=== PATIENT | female | born 1970 | race Caucasian/White ===

== ENCOUNTER → 2018-07-31 | Outpatient (CLI) | payer OTHER ==
--- NOTE | 2018-07-31 14:58 | CT ---
EXAMINATION TYPE: CT abdomen pelvis w con DATE OF EXAM: 07/31/2018 HISTORY: bilateral pelvic pain CT DLP: 675.3mGycm Automated Exposure Control for Dose Reduction was Utilized. CONTRAST: CT scan of the abdomen and pelvis is performed with IV Contrast, patient injected with 100 mL of Isov ue 300. COMPARISON: None. FINDINGS: LUNG BASES: Very minimal right basilar subsegmental atelectasis is seen. LIVER/GB: None radiopaque probable gallstone measuring 1.6 cm is seen although this could represent a polyp and could be further evaluated with ultrasound that could evaluate for vascular flow or shadow ing. The liver demonstrates very mild degree hepatic steatosis. PANCREAS: No significant abnormality is seen. SPLEEN: No significant abnormality is seen. ADRENALS: No significant abnormality is seen. KIDNEYS: Kidneys enhance and excrete symmetrically. No hydronephrosis. BOWEL: Few scattered sigmoid diverticula are noted without pericolonic fat stranding. No dilated larg e or small bowel is seen. UTERUS/ADNEXA: There is a fluid attenuated 1.2 cm left ovarian follicle in this patient with pelvic p ain. LYMPH NODES: No greater than 1cm abdominal or pelvic lymph nodes are appreciated. OSSEOUS STRUCTURES: Mild multilevel degenerative changes of the spine. IMPRESSION: 1. Low-density noncalcified solitary gallstone versus gallbladder polyp is present. Targeted right up per quadrant ultrasound could assess for shadowing or vascular flow to differentiate the 2 etiologies . 2. Few scattered sigmoid diverticula without evidence of acute diverticulitis. 3. Very mild degree hepatic steatosis. 4. Follicular changes seen of the left ovary. In this patient with pelvic pain pelvic ultrasound coul d assess for hemorrhagic follicles/cysts.
== END ==
LOC: RADCTMAIN 12:28
PROVIDERS: ATTEND Family Medicine
DX: K57.30 Diverticulosis of large intestine without perforation or abscess without bleeding (principal); K76.0 Fatty (change of) liver, not elsewhere classified
CPT/HCPCS: 74177; Q9967

== ENCOUNTER 2019-02-17 10:31 | Emergency (ER) | payer OTHER ==
[2019-02-17 10:40] VITALS: TEMP 97.6
[2019-02-17] MEDS ORDERED: IPRATROPIUM-ALBUTEROL 3 ML NEB INHALATION STA (11:26)
--- NOTE | 2019-02-17 11:28 | ED ---
General Adult HPI - General Chief complaint: Upper Respiratory Infection Stated complaint: congestion Time Seen by Provider: 02/17/19 10:41 Source: patient, RN notes reviewed Mode of arrival: ambulatory Limitations: no limitations - History of Present Illness Initial comments: Patient is a pleasant 48-year-old female presenting to the emergency Department with chest congestion. Patient did see her doctor just the other day and was diagnosed with sinus infection. Patient states today she is now having chest congestion. Patient sometimes feels warm and cold however that is chronic. Patient does have cough with out much production. Patient feels like there is congestion in her chest however has difficulty bringing it up. Patient questions if she could have bronchitis or pneumonia. Patient states she does feel a bit short of breath. No chest pain. No leg pain or leg swelling. - Related Data Previous Rx's Medication Instructions Recorded Albuterol Inhaler [Ventolin Hfa 2 puff INHALATION Q4HR PRN #1 02/17/19 Inhaler] inhaler predniSONE 20 mg PO BID #10 tab 02/17/19 Allergies Allergy/AdvReac Type Severity Reaction Status Date / Time No Known Allergies Allergy Verified 02/17/19 10:40 Review of Systems ROS Statement: Those systems with pertinent positive or pertinent negative responses have been documented in the HPI. ROS Other: All systems not noted in ROS Statement are negative. Constitutional: Reports: as per HPI Eyes: Denies: eye pain ENT: Reports: congestion. Denies: ear pain Respiratory: Reports: cough Cardiovascular: Denies: chest pain Endocrine: Denies: fatigue Gastrointestinal: Denies: abdominal pain Genitourinary: Denies: dysuria Musculoskeletal: Denies: back pain Skin: Denies: rash Neurological: Denies: weakness Past Medical History Past Medical History: No Reported History History of Any Multi-Drug Resistant Organisms: None Reported Past Surgical History: No Surgical Hx Reported Past Psychological History: No Psychological Hx Reported Smoking Status: Current every day smoker Past Alcohol Use History: Rare Past Drug Use History: None Reported General Exam Limitations: no limitations General appearance: alert, in no apparent distress Head exam: Present: normocephalic Eye exam: Present: normal appearance, PERRL ENT exam: Present: normal oropharynx Neck exam: Present: normal inspection Respiratory exam: Present: rhonchi (Especially with cough) Cardiovascular Exam: Present: regular rate, normal rhythm GI/Abdominal exam: Present: soft. Absent: tenderness Extremities exam: Present: normal inspection. Absent: pedal edema, calf tenderness Back exam: Present: normal inspection Neurological exam: Present: alert Psychiatric exam: Present: normal affect, normal mood Skin exam: Present: normal color Course Vital Signs 02/17/19 02/17/19 02/17/19 10:37 11:57 12:07 Temperature 97.6 F Pulse Rate 90 92 95 Respiratory 20 Rate Blood Pressure 124/66 O2 Sat by Pulse 95 Oximetry - Reevaluation(s) Reevaluation #1: 02/17/19 11:31 PERC negative Medical Decision Making - Medical Decision Making Patient reevaluated and feels somewhat better following nebulizer. Patient states she was put on antibiotics for sinuses for her doctor. Patient is comfortable with discharge home. Patient updated on results and need for follow-up. Patient states she does have a history of smoker and is advised against smoking. - Radiology Data Radiology results: image reviewed (Chest x-ray shows COPD changes) Disposition Clinical Impression: Bronchitis Disposition: HOME SELF-CARE Condition: Stable Instructions (If sedation given, give patient instructions): Acute Bronchitis (ED), COPD (Chronic Obstructive Pulmonary Disease) (ED) Additional Instructions: Please follow-up with primary care physician in the next couple days for recheck. Return for difficulty in breathing, fevers, worsening symptoms or other concerns. Prescriptions: predniSONE 20 mg PO BID #10 tab Albuterol Inhaler [Ventolin Hfa Inhaler] 2 puff INHALATION Q4HR PRN #1 inhaler PRN Reason: Dyspnea Is patient prescribed a controlled substance at d/c from ED?: No Referrals: Chuyita Simmons MD [Primary Care Provider] - 1-2 days Time of Disposition: 13:08
--- NOTE | 2019-02-17 11:57 | XR ---
EXAMINATION TYPE: XR chest 2V DATE OF EXAM: 02/17/2019 HISTORY: cough. REFERENCE: NONE. FINDINGS: Lung volumes are enlarged. The lungs are clear. Pleural spaces are clear. The heart is not enlarged. There is minor hypertrophic spondylosis within the spine. IMPRESSION: PLEASE CORRELATE FOR COPD
[2019-02-17 13:21] VITALS: BP 120/78; PULSE 89; RESP 16
== END 2019-02-17 13:22 | disposition home or self-care (01) ==
LOC: EC 10:31
DX: J40 Bronchitis, not specified as acute or chronic (principal); F17.200 Nicotine dependence, unspecified, uncomplicated
CPT/HCPCS: 71046; 94640; 99283

== ENCOUNTER 2019-02-23 13:01 | Emergency (ER) | payer OTHER ==
[2019-02-23 13:11] VITALS: TEMP 98
[2019-02-23] MEDS ORDERED: methylPREDNISolone SOD SUCCI 125 MG/2 ML VIAL IM ONE (13:46)
[2019-02-23] MEDS ORDERED: IPRATROPIUM-ALBUTEROL 3 ML NEB INHALATION STA (13:46)
--- NOTE | 2019-02-23 13:51 | ED ---
SOB HPI - General Chief Complaint: Shortness of Breath Stated Complaint: SOB Time Seen by Provider: 02/23/19 13:18 Source: patient, RN notes reviewed, old records reviewed Mode of arrival: ambulatory Limitations: no limitations - History of Present Illness Initial Comments: Patient's a 48-year-old female with a history of COPD, and a smoker. She presen ts today complaining of shortness of breath and cough congestion. She was seen in the emergency department last week and placed on steroids and inhaler. She's been using those. Her last dose of steroids was yesterday. She states that today she woke up feeling some congestion and wheezing and felt that she needed to come back to the emergency department to be seen. She states she has an appointment on Monday with her primary care physician. Patient states that her cough has been nonproductive. She's been using her inhaler prior to coming here she was quite short of breath at home. She denies any specific chest pain, but states that sometimes taking a deep breath it does feel tight. - Related Data Previous Rx's Medication Instructions Recorded Azithromycin [Zithromax Z-pack] 250 mg PO DIRECTED #6 tab 02/23/19 predniSONE 20 mg PO BID #10 tab 02/23/19 Allergies Allergy/AdvReac Type Severity Reaction Status Date / Time No Known Allergies Allergy Verified 02/23/19 13:11 Review of Systems ROS Statement: Those systems with pertinent positive or pertinent negative responses have been documented in the HPI. ROS Other: All systems not noted in ROS Statement are negative. Past Medical History Past Medical History: COPD History of Any Multi-Drug Resistant Organisms: None Reported Past Surgical History: No Surgical Hx Reported Past Psychological History: Depression Smoking Status: Former smoker Past Alcohol Use History: Rare Past Drug Use History: None Reported General Exam - General Exam Comments Initial Comments: 48-year-old female. Alert and oriented 3. Limitations: no limitations General appearance: alert, in no apparent distress Head exam: Present: atraumatic, normocephalic, normal inspection Eye exam: Present: normal appearance, PERRL, EOMI. Absent: scleral icterus, conjunctival injection, periorbital swelling ENT exam: Present: normal exam, mucous membranes moist Neck exam: Present: normal inspection. Absent: tenderness, meningismus, lymphadenopathy Respiratory exam: Present: wheezes (minimal wheezing). Absent: normal lung sounds bilaterally, respiratory distress, rales, rhonchi, stridor Cardiovascular Exam: Present: regular rate, normal rhythm, normal heart sounds. Absent: systolic murmur, diastolic murmur, rubs, gallop, clicks GI/Abdominal exam: Present: soft, normal bowel sounds. Absent: distended, tenderness, guarding, rebound, rigid Back exam: Present: normal inspection Neurological exam: Present: alert, oriented X3, CN II-XII intact Course Vital Signs 02/23/19 02/23/19 02/23/19 13:09 13:48 13:59 Temperature 98.0 F Pulse Rate 84 82 88 Respiratory 18 Rate Blood Pressure 132/75 O2 Sat by Pulse 96 Oximetry 02/23/19 14:15 Temperature 98.0 F Pulse Rate 89 Respiratory 22 Rate Blood Pressure 122/56 O2 Sat by Pulse 99 Oximetry Medical Decision Making - Medical Decision Making Patient is a 48-year-old female presents today for worsening cough and some shortness of breath. She is treated one week ago for bronchitis. She was on Augmentin and finished admitted last week for sinusitis. She states today after she finished her steroid yesterday she felt that she needed more steroids that she had a cough and some difficulty breathing today. On exam she has some minimal wheezing. She does complain of some tightness of the right lung. Chest x-ray today shows new mild right middle lobe pneumonia. Patient was given IM Solu-Medrol IM Rocephin. Discussed covering for atypical bacteria with azithromycin. She has an appointment on Monday with her primary care doctor. Discussed the Patient and have any worsening difficulty breathing she cannot return for reevaluation. I discussed that he can have the Patient follow-up with her primary care on Monday and at that time. Still not improving while she may have to be related to the hospital. Patient is agreeable to this treatment plan will comply. - Radiology Data Radiology results: report reviewed Chest x-ray shows a new mild right middle lobe pneumonia compared to last exam. Disposition Clinical Impression: CAP (community acquired pneumonia) Disposition: HOME SELF-CARE Condition: Good Instructions (If sedation given, give patient instructions): Community Acquired Pneumonia (ED) Additional Instructions: Patient has follow-up with your primary care doctor. Return to the emergency department if any alarming symptoms occur. Take inhaler and use of steroids as prescribed. Prescriptions: predniSONE 20 mg PO BID #10 tab Azithromycin [Zithromax Z-pack] 250 mg PO DIRECTED #6 tab Is patient prescribed a controlled substance at d/c from ED?: No Referrals: Chuyita Simmons MD [Primary Care Provider] - 1-2 days Time of Disposition: 14:23
--- NOTE | 2019-02-23 14:14 | XR ---
EXAMINATION TYPE: XR chest 2V DATE OF EXAM: 02/23/2019 COMPARISON: 02/17/2019 HISTORY: Cough TECHNIQUE: Frontal and lateral views of the chest are obtained. FINDINGS: Heart and mediastinum are normal. There is a small right middle lobe pneumonia.. There is no pleural effusion. Costophrenic angles are clear. Pulmonary vascularity is normal. IMPRESSION: There is a new mild right middle lobe pneumonia compared to last exam.
[2019-02-23] MEDS ORDERED: cefTRIAXone 1,000 MG VIAL (IM USE) IM STA (14:17)
[2019-02-23] MEDS ORDERED: AZITHROMYCIN 500 MG TAB PO STA (14:17)
[2019-02-23 14:22] VITALS: BP 122/56
[2019-02-23 14:30] VITALS: PULSE 89; RESP 22
== END 2019-02-23 14:50 | disposition home or self-care (01) ==
LOC: EC 13:01
DX: J18.9 Pneumonia, unspecified organism (principal); J44.0 Chronic obstructive pulmonary disease with (acute) lower respiratory infection; Z87.891 Personal history of nicotine dependence
CPT/HCPCS: 94640; 71046; 99285; 96372 ×2; J2930; J0696

== ENCOUNTER 2020-07-02 11:34 | Emergency (ER) | payer OTHER ==
--- NOTE | 2020-07-02 13:51 | ED ---
General Adult HPI - General Chief complaint: Skin/Abscess/Foreign Body Stated complaint: hemorrhoid Time Seen by Provider: 07/02/20 12:44 Source: family, RN notes reviewed, old records reviewed Mode of arrival: ambulatory Limitations: no limitations - History of Present Illness Initial comments: 49-year-old female sent in from [facility] for evaluation of suspected perirectal abscess. Patient states she's had some intermittent rectal bleeding and does h ave history of hemorrhoids. She was seen by the primary care physician who felt there was a perirectal abscess. Patient has history of COPD with no other chronic medical issues. She denies fever or chills. Denies constitutional symptoms. She states she does have some rectal pain but this is minimal. She states she's had some rectal bleeding predominantly with bowel movements. - Related Data Previous Rx's Medication Instructions Recorded Azithromycin [Zithromax Z-pack (6 250 mg PO DIRECTED #6 tab 02/23/19 tabs)] predniSONE [Deltasone] 20 mg PO BID #10 tab 02/23/19 Amoxicillin/Potassium Clav 1 tab PO Q12HR 10 Days #20 tab 07/02/20 [Augmentin 875-125 Tablet] Allergies Allergy/AdvReac Type Severity Reaction Status Date / Time No Known Allergies Allergy Verified 02/23/19 13:11 Review of Systems ROS Statement: Those systems with pertinent positive or pertinent negative responses have been documented in the HPI. ROS Other: All systems not noted in ROS Statement are negative. Past Medical History Past Medical History: COPD History of Any Multi-Drug Resistant Organisms: None Reported Past Surgical History: No Surgical Hx Reported Past Psychological History: Depression Smoking Status: Current every day smoker Past Alcohol Use History: Rare Past Drug Use History: None Reported General Exam Limitations: no limitations General appearance: alert, in no apparent distress Head exam: Present: atraumatic, normocephalic Eye exam: Present: normal appearance, PERRL ENT exam: Present: normal exam Neck exam: Present: normal inspection. Absent: tenderness, meningismus Respiratory exam: Present: normal lung sounds bilaterally. Absent: respiratory distress, wheezes, rales Cardiovascular Exam: Present: regular rate, normal rhythm GI/Abdominal exam: Present: soft. Absent: distended, tenderness Rectal exam: Present: hemorrhoids (No active bleeding, there is some cir cumferential induration around the rectum with several hemorrhoids, none are thrombosed or actively bleeding. I do did not feel fluctuance or drainable abscess on exam.) Extremities exam: Present: normal inspection, normal capillary refill Course Vital Signs 07/02/20 07/02/20 12:28 14:00 Temperature 98.8 F Pulse Rate 85 85 Respiratory 18 20 Rate Blood Pressure 129/67 127/58 O2 Sat by Pulse 95 97 Oximetry Medical Decision Making - Medical Decision Making CT findings were concerning for either cellulitis or abscess. I discussed these findings with the radiologist who does not see a drainable fluid collection. I discussed case with Dr. Edwards covering for general surgery. Patient felt to be stable for discharge with oral antibiotics. The patient is agreeable and prefers discharge. She's given strict return parameters and will return with worsening or changing symptoms. Perianal cellulitis Normal CBC, normal CMP - Lab Data Result diagrams: 07/02/20 13:18 07/02/20 13:18 Lab Results 07/02/20 07/02/20 07/02/20 Range/Units 13:18 13:18 13:18 WBC 9.6 (3.8-10.6) k/uL RBC 4.65 (3.80-5.40) m/uL Hgb 14.9 (11.4-16.0) gm/dL Hct 42.6 (34.0-46.0) % MCV 91.7 (80.0-100.0) fL MCH 32.1 (25.0-35.0) pg MCHC 35.0 (31.0-37.0) g/dL RDW 12.6 (11.5-15.5) % Plt Count 280 (150-450) k/uL MPV 7.2 Neutrophils % 67 % Lymphocytes % 26 % Monocytes % 3 % Eosinophils % 2 % Basophils % 1 % Neutrophils # 6.4 (1.3-7.7) k/uL Lymphocytes # 2.5 (1.0-4.8) k/uL Monocytes # 0.3 (0-1.0) k/uL Eosinophils # 0.2 (0-0.7) k/uL Basophils # 0.1 (0-0.2) k/uL Sodium 139 (137-145) mmol/L Potassium 4.1 (3.5-5.1) mmol/L Chloride 105 (98-107) mmol/L Carbon Dioxide 27 (22-30) mmol/L Anion Gap 7 mmol/L BUN 13 (7-17) mg/dL Creatinine 0.65 (0.52-1.04) mg/dL Est GFR (CKD-EPI)AfAm >90 (>60 ml/min/1.73 sqM) Est GFR (CKD-EPI)NonAf >90 (>60 ml/min/1.73 sqM) Glucose 97 (74-99) mg/dL Plasma Lactic Acid Isael 0.9 (0.7-2.0) mmol/L Calcium 9.5 (8.4-10.2) mg/dL Magnesium 2.1 (1.6-2.3) mg/dL Total Bilirubin 0.5 (0.2-1.3) mg/dL AST 29 (14-36) U/L ALT 24 (4-34) U/L Alkaline Phosphatase 101 (38-126) U/L Total Protein 7.4 (6.3-8.2) g/dL Albumin 4.5 (3.5-5.0) g/dL Disposition Clinical Impression: Perianal cellulitis Disposition: HOME SELF-CARE Condition: Good Instructions (If sedation given, give patient instructions): Cellulitis (ED), Rectal Abscess (ED) Prescriptions: Amoxicillin/Potassium Clav [Augmentin 875-125 Tablet] 1 tab PO Q12HR 10 Days #20 tab Is patient prescribed a controlled substance at d/c from ED?: No Referrals: Chuyita Simmons MD [Primary Care Provider] - 1-2 days Augie Edwards MD [Medical Doctor] - 1-2 days Time of Disposition: 14:43
[2020-07-02 13:57] LABS: Basophils # (A) 0.1 k/uL (0-0.2); Basophils % (A) 1 %; Eosinophils # (A) 0.2 k/uL (0-0.7); Eosinophils % (A) 2 %; HCT 42.6 % (34.0-46.0); HGB 14.9 gm/dL (11.4-16.0); Lymphocytes # (A) 2.5 k/uL (1.0-4.8); Lymphocytes % (A) 26 %; MCH 32.1 pg (25.0-35.0); MCV 91.7 fL (80.0-100.0); Mean Platelet Volume 7.2; Monocytes # (A) 0.3 k/uL (0-1.0); Monocytes % (A) 3 %; Neutrophils # (A) 6.4 k/uL (1.3-7.7); Neutrophils % (A) 67 %; Platelet Count 280 k/uL (150-450); RBC 4.65 m/uL (3.80-5.40); RDW 12.6 % (11.5-15.5); WBC 9.6 k/uL (3.8-10.6)
[2020-07-02 14:14] VITALS: RESP 20
[2020-07-02 14:14] LABS: ALT 24 U/L (4-34); AST 29 U/L (14-36); African American GFR (CKD) >90 (>60 ml/min/1.73 sqM); Albumin 4.5 g/dL (3.5-5.0); Alkaline Phosphatase 101 U/L (38-126); Anion Gap 7 mmol/L; Blood Urea Nitrogen 13 mg/dL (7-17); Calcium 9.5 mg/dL (8.4-10.2); Carbon Dioxide 27 mmol/L (22-30); Chloride 105 mmol/L (98-107); Glucose 97 mg/dL (74-99); Magnesium 2.1 mg/dL (1.6-2.3); Non-African American GFR(CKD) >90 (>60 ml/min/1.73 sqM); Potassium 4.1 mmol/L (3.5-5.1); Sodium 139 mmol/L (137-145); Total Bilirubin 0.5 mg/dL (0.2-1.3); Total Protein 7.4 g/dL (6.3-8.2)
--- NOTE | 2020-07-02 14:20 | CT ---
EXAMINATION TYPE: CT abdomen pelvis w con DATE OF EXAM: 07/02/2020 COMPARISON: 07/31/2018 HISTORY: Perineal abscess, hemorrhoids CT DLP: 929.5 mGycm Automated exposure control for dose reduction was used. CONTRAST: CT scan of the abdomen pelvis is performed with IV Contrast, patient injected with 100 mL of Isovue 3 00. FINDINGS- LUNG BASES- No significant abnormality is appreciated. LIVER/GB-gallstone noted. Liver homogeneous.. PANCREAS- No gross abnormality is seen. SPLEEN- No gross abnormality is seen. ADRENALS- No gross abnormality is seen. KIDNEYS/BLADDER- no hydronephrosis nephrolithiasis or renal mass. BOWEL-bowel gas pattern nonspecific. Diverticulosis noted. Small hiatal hernia. LYMPH NODES- No greater than 1cm abdominal or pelvic lymph nodes areappreciated. OSSEOUS STRUCTURES-hypertrophic and degenerative change of the spine. Rate 1 anterolisthesis of L4 on L5 likely degenerative secondary to hypertrophic facet arthropathy. OTHER- pelvic varices noted. Aorta of normal caliber. Within the visualized portion of the perineum there is abnormal soft tissue attenuation as well as air collection which may represent the patient's reported history of perineal abscess. Appears mostly ill-defined attenuation with air minimal or no fluid. Low-attenuation in the vaginal cuff on the left is stable dating back to 2019 may represent a cyst and could be correlated with ultrasound. IMPRESSION- 1. Abnormal attenuation the perineum compatible with neck soft tissue and air attenuation suggestive of peroneal abscess. Measures approximately 3 cm. 2. Cholelithiasis. 3. Subcentimeter low attenuation near the vaginal cuff on the left stable from 2019. Short-term follo w-up ultrasound could be obtained.
[2020-07-02] MEDS ORDERED: SODIUM CHLORIDE 0.9% 500 ML 500 ML IV ONE (14:25)
[2020-07-02] MEDS ORDERED: PIPERACILLIN-TAZOBACTAM 3.375 GM in SODIUM CHLORIDE 0.9% 100 ML IVPB STA (14:25)
[2020-07-02] MEDS ORDERED: SODIUM CHLORIDE 0.9% 1,000 ML IV SCH (14:30)
[2020-07-02 15:38] VITALS: BP 128/70; PULSE 80; TEMP 98.2
[2020-07-02] MEDS ORDERED: PIPERACILLIN-TAZOBACTAM 3.375 GM in SODIUM CHLORIDE 0.9% 100 ML IVPB SCH (16:00)
== END 2020-07-02 15:30 | disposition home or self-care (01) ==
LOC: EC 11:34
DX: K61.0 Anal abscess (principal); F17.200 Nicotine dependence, unspecified, uncomplicated; J44.9 Chronic obstructive pulmonary disease, unspecified
CPT/HCPCS: 99284; 96365; 96375; 96361; 36415; 80053; 83605; 83735; 85025; 87040; 74177; J2543; Q9967

== ENCOUNTER 2020-07-17 10:11 | Day surgery (SDC) | payer OTHER ==
[2020-07-15 09:50] VITALS: BMI 33.2
[~2020-07-17 10:11] MED LIST: ACETAMINOPHEN TAB 500 MG TAB PO PRN; DEXAMETHASONE SOD PHOSPHATE 4 MG/ML 1 ML VIAL IV ONE; HEPARIN SODIUM,PORCINE 5,000 UNIT/ML 1 ML VIAL SQ PRN; HYDROmorphone 0.5 MG/0.5 ML SYRINGE IVP PRN; LACTATED RINGERS 1,000 ML IV SCH; MIDAZOLAM 2 MG/2 ML VIAL IV PRN; ONDANSETRON 4 MG/2 ML VIAL IVP ONE; SCOPOLAMINE 1.5MG/72HR PATCH TRANSDERM ONE
[2020-07-17 10:47] VITALS: RESP 16
[2020-07-17] MEDS ORDERED: LIDOCAINE 1% (10MG/ML) FOR IV START INTRADERMA ONE (10:54)
--- NOTE | 2020-07-17 11:43 | P.GSHP ---
History of Present Illness H&P Date: 07/17/20 Chief Complaint: Cholelithiasis, indigestion This a 49-year-old female who's had some complaints of indigestion. She is workup found have cholelithiasis she presents today for laparoscopic cholecystectomy Past Medical History Past Medical History: COPD Additional Past Medical History / Comment(s): "bad headaches", "hemorrhoid abscess-on rx", constipation, gallstones stones, History of Any Multi-Drug Resistant Organisms: None Reported Past Surgical History: Tonsillectomy, Uterine Ablation Past Anesthesia/Blood Transfusion Reactions: No Reported Reaction Smoking Status: Current every day smoker - Past Family History Father Family Medical History: Cancer Medications and Allergies Home Medications Medication Instructions Recorded Confirmed Type Albuterol Inhaler [Ventolin Hfa 2 puff INHALATION DAILY PRN 07/02/20 07/17/20 History Inhaler] Amoxicillin/Potassium Clav 1 tab PO Q12HR 10 Days #20 tab 07/02/20 07/17/20 Rx [Augmentin 875-125 Tablet] Ibuprofen [Motrin Ib] 600 mg PO Q8H PRN 07/02/20 07/17/20 History Allergies Allergy/AdvReac Type Severity Reaction Status Date / Time No Known Allergies Allergy Verified 07/15/20 09:36 Surgical - Exam Vital Signs Temp Pulse Resp BP Pulse Ox 97.4 F L 90 16 154/69 97 07/17/20 10:40 07/17/20 10:40 07/17/20 10:40 07/17/20 10:40 07/17/20 10:40 - General well developed, well nourished, no distress - Eyes PERRL - ENT normal pinna - Neck no masses - Respiratory normal expansion - Cardiovascular Rhythm: regular - Abdomen Abdomen: soft, non tender Assessment and Plan Assessment: Cholelithiasis We'll perform laparoscopic cholecystectomy
[2020-07-17] MEDS ORDERED: SUCCINYLCHOLINE CHLORIDE 100 MG/5 ML SYR IV ONE (11:58)
[2020-07-17] MEDS ORDERED: fentaNYL (PF) 50 MCG/ML 2 ML AMP ONE (11:58)
[2020-07-17] MEDS ORDERED: ROCURONIUM 10 MG/ML (5 ML VIAL) IV ONE (11:58)
[2020-07-17] MEDS ORDERED: PROPOFOL 10 MG/ML 20 ML VIAL IV ONE (11:58)
[2020-07-17] MEDS ORDERED: GLYCOPYRROLATE 0.2 MG/ML 2 ML VIAL ONE (11:58)
[2020-07-17] MEDS ORDERED: LIDOCAINE 1% INJ 10MG/ML (20 ML MDV) ONE (11:58)
[2020-07-17] MEDS ORDERED: NEOSTIGMINE 1 MG/ML 10 ML VIAL ONE (11:58)
[2020-07-17] MEDS ORDERED: MIDAZOLAM 2 MG/2 ML VIAL ONE (11:58)
[2020-07-17] MEDS ORDERED: BUPIVACAINE (PF) 0.25% 30 ML VIAL SQ ONE ×2 (12:13)
--- NOTE | 2020-07-17 12:36 | P.OP ---
Date of Procedure: 07/17/20 Preoperative Diagnosis: Cholelithiasis Postoperative Diagnosis: Cholelithiasis Procedure(s) Performed: Laparoscopic cholecystectomy Anesthesia: ANNA MARIE Surgeon: Bernardino Borden Estimated Blood Loss (ml): 5 Pathology: other Condition: stable Disposition: PACU Description of Procedure: The patient was placed on the operating table. The patient received a general endotracheal tube anesthesia. The patients abdomen was prepped and draped in the usual sterile fashion. Through an infraumbilical stab incision, the fascia of the anterior abdominal wall was grasped with a pair of Kochers and then the Veress needle was placed in the peritoneal cavity. Position of the Ve ress needle was confirmed with positive drop test. The abdomen was then insufflated. After adequate insufflation, the 10 mm trocar was placed in the peritoneal cavity. Following this the laparoscope was placed in the peritoneal cavity. The patient was placed in the head-up, right side up position and then a 5 mm trocar was placed in the right lateral and right subcostal position under direct visualization. A 8 mm trocar was placed in the epigastric position. The gallbladder was grasped in the fundus and infundibulum. Traction on the gallbladder was placed in the lateral and the cephalad positions. The triangle of Calot was visualized.. The cystic duct was bluntly dissected until the union of the cystic duct and common bile duct was seen. A critical view of safety was achieved. The cystic duct was then divided and sealed with the Harmonic scissors. A PDS Endoloop was then placed throughout the cystic duct stump. The cystic artery divided and sealed with the Harmonic scissors. The gallbladder was then removed from the liver bed using Harmonic scissors. The gallbladder was then extracted through the epigastric port site. Operative field was checked for any bleeding spots and Harmonic scissors was used to coagulate the liver bed. The abdomen was irrigated. The trocars were removed. The skin was closed using interrupted 3-0 Vicryl suture. Dermabond dressing were applied. The patient tolerated the procedure well.
[2020-07-17 12:47] VITALS: TEMP 97.3
[2020-07-17] MEDS ORDERED: LACTATED RINGERS 1,000 ML IV ONE (14:06)
[2020-07-17 14:51] VITALS: BP 120/72; PULSE 80
== END 2020-07-17 15:07 | disposition home or self-care (01) ==
LOC: OR 10:11
PROVIDERS: ATTEND Surgery
DX: K80.10 Calculus of gallbladder with chronic cholecystitis without obstruction (principal); J44.9 Chronic obstructive pulmonary disease, unspecified; K61.1 Rectal abscess; K64.9 Unspecified hemorrhoids; F41.9 Anxiety disorder, unspecified; K59.00 Constipation, unspecified; F17.210 Nicotine dependence, cigarettes, uncomplicated; Z90.89 Acquired absence of other organs; Z98.890 Other specified postprocedural states; Z97.2 Presence of dental prosthetic device (complete) (partial); Z80.9 Family history of malignant neoplasm, unspecified
CPT/HCPCS: 81025; 88304; 47562; J2250; J1644; J1100; J2710; J0690; J2405; J2001; J3010; J0330; J2704

== ENCOUNTER 2020-07-27 06:27 | Day surgery (SDC) | payer OTHER ==
[2020-07-21 12:46] VITALS: BMI 33.2
[~2020-07-27 06:27] MED LIST changes: -HYDROmorphone 0.5 MG/0.5 ML SYRINGE IVP PRN; -MIDAZOLAM 2 MG/2 ML VIAL IV PRN; +Pre Op ABX Message 1 EACH MISC MISCELLANE ONE; -SCOPOLAMINE 1.5MG/72HR PATCH TRANSDERM ONE
[2020-07-27] MEDS ORDERED: LACTATED RINGERS 1,000 ML IV ONE (06:43)
[2020-07-27] MEDS ORDERED: MIDAZOLAM 2 MG/2 ML VIAL IVP ONE (07:01)
[2020-07-27] MEDS ORDERED: SODIUM CHLORIDE 0.9% 100 ML with ceFAZolin 2,000 MG IV ONE ×2 (07:50)
[2020-07-27] MEDS ORDERED: BUPIVACAINE (PF) 0.25% 30 ML VIAL SQ ONE (08:18)
[2020-07-27] MEDS ORDERED: GELATIN SPONGE,ABSORB (LARGE) 1 EACH SPONGE TOPICAL ONE (08:23)
--- NOTE | 2020-07-27 08:39 | P.GSHP ---
History of Present Illness H&P Date: 07/27/20 Chief Complaint: Anal pain, bleeding, hemorrhoids This a 50-year-old female who presents today for hemorrhoidectomy. Patient has had complaints of anal pain itching and bleeding due to hemorrhoids. Past Medical History Past Medical History: COPD Additional Past Medical History / Comment(s): "bad headaches", , constipation, HEMORRHOIDS History of Any Multi-Drug Resistant Organisms: None Reported Past Surgical History: Cholecystectomy, Tonsillectomy, Uterine Ablation Additional Past Surgical History / Comment(s): LAP CRYSTAL-07/17/20 Past Anesthesia/Blood Transfusion Reactions: No Reported Reaction Smoking Status: Current every day smoker - Past Family History Father Family Medical History: Cancer Medications and Allergies Home Medications Medication Instructions Recorded Confirmed Type Albuterol Inhaler [Ventolin Hfa 2 puff INHALATION DAILY PRN 07/02/20 07/21/20 History Inhaler] Acetaminophen Tab [Tylenol] 650 mg PO Q6H #30 tab 07/17/20 07/21/20 Rx Docusate [Colace] 100 mg PO BID #20 capsule 07/17/20 07/21/20 Rx Ibuprofen [Motrin] 600 mg PO Q6HR PRN #40 tab 07/17/20 07/21/20 Rx oxyCODONE HCL [OxyIR] 5 mg PO Q6H PRN 3 Days #10 tab 07/17/20 07/21/20 Rx Allergies Allergy/AdvReac Type Severity Reaction Status Date / Time No Known Allergies Allergy Verified 07/21/20 12:39 Surgical - Exam Vital Signs Temp Pulse Resp BP Pulse Ox 97.8 F 88 18 158/91 97 07/27/20 06:39 07/27/20 06:39 07/27/20 06:39 07/27/20 06:39 07/27/20 06:39 - General well developed, well nourished, no distress - Eyes PERRL - ENT normal pinna - Neck no masses - Respiratory normal expansion - Cardiovascular Rhythm: regular - Abdomen Abdomen: soft, non tender - Rectum Internal and external hemorrhoids. The skin around the anus is firm. Assessment and Plan Assessment: Internal and external hemorrhoids. We'll perform hemorrhoidectomy
--- NOTE | 2020-07-27 08:40 | P.OP ---
Date of Procedure: 07/27/20 Preoperative Diagnosis: Internal and external hemorrhoids Postoperative Diagnosis: Internal and external hemorrhoids Procedure(s) Performed: Hemorrhoidectomy, Anal skin biopsy Anesthesia: ANNA MARIE Surgeon: Bernardino Borden Estimated Blood Loss (ml): 10 Pathology: other (Internal and external hemorrhoids, anal skin biopsy) Condition: stable Disposition: PACU Description of Procedure: The patient's placed on the endoscopy operating table in the prone position after receiving general endotracheal tube anesthesia. Her nasogastric draped usual sterile fashion. Patient had large internal and external hemorrhoids. The anal retractors placed anus. The left lateral hemorrhoidal column was grasped Allis clamps and then the hemorrhoidectomy is performed with the Harmonic scissors. In a similar fashion the right anterior and right posterior hemorrhoidal columns were excised. The anal skin in the 6 o'clock position. We quite hard. The skin was grasped with a Allis clamp and using a 15 blade a biopsies performed. The Bovie hemostasis. The specimens were sent to pathology. The anus was packed with Gelfoam. Patient top she will was sent to recovery room in stable condition
[2020-07-27 08:50] VITALS: TEMP 97.5
[2020-07-27 08:58] VITALS: RESP 16
[2020-07-27 10:25] VITALS: BP 133/771; PULSE 81
== END 2020-07-27 10:28 | disposition home or self-care (01) ==
LOC: OR 06:27
PROVIDERS: ATTEND Surgery
DX: C44.520 Squamous cell carcinoma of anal skin (principal); K64.8 Other hemorrhoids; K64.4 Residual hemorrhoidal skin tags; J44.9 Chronic obstructive pulmonary disease, unspecified; F17.200 Nicotine dependence, unspecified, uncomplicated; K08.89 Other specified disorders of teeth and supporting structures; G43.909 Migraine, unspecified, not intractable, without status migrainosus; K59.00 Constipation, unspecified; Z87.19 Personal history of other diseases of the digestive system; Z90.49 Acquired absence of other specified parts of digestive tract; Z90.89 Acquired absence of other organs; Z98.890 Other specified postprocedural states; Z79.899 Other long term (current) drug therapy; Z79.1 Long term (current) use of non-steroidal anti-inflammatories (NSAID); Z80.9 Family history of malignant neoplasm, unspecified
CPT/HCPCS: 46260; 46999; 88304; 88305; 88342; J2250; J1644; J1100; J2405; J0690

== ENCOUNTER → 2020-08-27 | Outpatient (CLI) | payer OTHER ==
--- NOTE | 2020-08-27 15:30 | CT ---
EXAMINATION TYPE: CT chest w con DATE OF EXAM: 08/27/2020 COMPARISON: None HISTORY: Observe for mets, history of anal cancer. CT DLP: 387.7 mGycm Automated exposure control for dose reduction was used. TECHNIQUE: CT scan of the chest is performed with IV Contrast, patient injected with 100ml mL of Isovue 300. [place] P Images are created on CT scanner and reviewed. 3D reconstructed images are created on an [employer] workstation and reviewed. FINDINGS: LUNGS: The lungs are grossly clear, there is no concerning parenchymal mass or nodule identified. T here is no pleural effusion or pneumothorax seen. The tracheobronchial tree is patent. Emphysematous changes are noted. MEDIASTINUM: There are no greater than 1 cm hilar or mediastinal lymph nodes. Shotty adenopathy in the hilum and mediastinum. Heart size normal. No pericardial effusion is seen. OTHER: Postsurgical change involving the gallbladder fossa. Hypertrophic and degenerative change of the spine. IMPRESSION: 1 COPD with no diagnostic evidence of intrathoracic metastases.
== END | disposition home or self-care (01) ==
LOC: RADCTMAIN 13:45
PROVIDERS: ATTEND Internal Medicine Hematology & Oncology
DX: C21.0 Malignant neoplasm of anus, unspecified (principal); J44.9 Chronic obstructive pulmonary disease, unspecified
CPT/HCPCS: 71260; Q9967

== ENCOUNTER → 2020-08-28 | Outpatient (CLI) | payer OTHER | END | disposition home or self-care (01) | LOC: RADMRIMAIN 12:11 | PROVIDERS: ATTEND Internal Medicine Hematology & Oncology | DX: Z53.9 Procedure and treatment not carried out, unspecified reason (principal) ==

== ENCOUNTER → 2020-09-12 | Outpatient (CLI) | payer OTHER ==
--- NOTE | 2020-09-14 08:53 | PE ---
EXAMINATION TYPE: PET CT fusion skull to thigh DATE OF EXAM: 09/12/2020 COMPARISON: Chest CT August 27, 2020. CT abdomen and pelvis July 02, 2020. HISTORY: Newly diagnosed anal cancer on biopsy July 2020. TECHNIQUE: Following the intravenous administration of 13.00 mCi of F-18 FDG, whole body images are performed from the skull base to the midthigh. Images are reviewed on the computer in the coronal, a xial, and sagittal planes. Reconstructed rotating images are created on independent workstation and reviewed on the computer. A localization and attenuation correction CT is performed in conjunction with the PET scan. Blood glucose level equals 125. SCAN: Initial Scan FINDINGS: SKULL BASE AND NECK: No areas of abnormal hypermetabolic uptake. CHEST, MEDIASTINUM, AND HILAR REGION: No areas of abnormal hypermetabolic uptake. Background mild to moderate underlying emphysematous change is redemonstrated. ABDOMEN AND PELVIS: Large hypermetabolic soft tissue mass involving the distal rectum and anus with h ypermetabolic uptake along posterior three-quarter portion measuring approximately 6.1 x 4.9 cm, max SUV is 18.66. No adjacent hypermetabolic adenopathy. No additional areas of abnormal hypermetabolic uptake in the abdomen or pelvis. No intrahepatic metas tatic disease. OSSEOUS STRUCTURES: No areas of abnormal hypermetabolic uptake. OTHER CT: Nasal septum deviated to right of midline. Cholecystectomy clips. Occasional scattered pelvic phleboliths. Exaggerated kyphosis. Facet arthropat hy lower lumbar spine. IMPRESSION: Fairly large neoplasm at level of anus identified. No suspicious adenopathy or metastatic disease noted.
== END | disposition home or self-care (01) ==
LOC: RADPETMAIN 09:17
PROVIDERS: ATTEND Radiology Radiation Oncology
DX: C21.0 Malignant neoplasm of anus, unspecified (principal)
CPT/HCPCS: 78815; A9552

== ENCOUNTER → 2020-09-15 | Outpatient (CLI) | payer OTHER | END | disposition home or self-care (01) | LOC: RADMRIMAIN 09:06 | PROVIDERS: ATTEND Internal Medicine Hematology & Oncology | DX: Z53.9 Procedure and treatment not carried out, unspecified reason (principal) ==

== ENCOUNTER 2020-09-18 09:59 | Day surgery (SDC) | payer OTHER ==
[2020-09-16 11:04] VITALS: BMI 33.4
[2020-09-18 10:44] VITALS: BP 132/90; PULSE 89; RESP 16; TEMP 98.1
[2020-09-18 10:55] LABS: Basophils # (A) 0.1 k/uL (0-0.2); Basophils % (A) 1 %; Eosinophils # (A) 0.1 k/uL (0-0.7); Eosinophils % (A) 1 %; HCT 41.8 % (34.0-46.0); HGB 14.9 gm/dL (11.4-16.0); Lymphocytes # (A) 2.7 k/uL (1.0-4.8); Lymphocytes % (A) 24 %; MCH 32.4 pg (25.0-35.0); MCHC 35.6 g/dL (31.0-37.0); MCV 90.9 fL (80.0-100.0); Monocytes # (A) 0.4 k/uL (0-1.0); Monocytes % (A) 3 %; Neutrophils # (A) 7.8 k/uL (1.3-7.7); Neutrophils % (A) 70 %; Platelet Count 288 k/uL (150-450); RBC 4.59 m/uL (3.80-5.40); RDW 12.3 % (11.5-15.5); WBC 11.2 k/uL (3.8-10.6)
[2020-09-18 11:12] LABS: African American GFR (CKD) >90 (>60 ml/min/1.73 sqM); Anion Gap 6 mmol/L; Blood Urea Nitrogen 17 mg/dL (7-17); Carbon Dioxide 30 mmol/L (22-30); Chloride 104 mmol/L (98-107); Non-African American GFR(CKD) >90 (>60 ml/min/1.73 sqM); Potassium 3.8 mmol/L (3.5-5.1); Sodium 140 mmol/L (137-145)
[2020-09-18] MEDS ORDERED: LIDOCAINE 1% INJ 10MG/ML (20 ML MDV) ONE (11:25)
[2020-09-18] MEDS ORDERED: LIDOCAINE 1% INJ 10MG/ML (20 ML MDV) SQ ONE (11:40)
--- NOTE | 2020-09-18 14:20 | IR ---
EXAMINATION TYPE: IR cvc insert >=5 years DATE OF EXAM: 09/18/2020 COMPARISON: NONE CLINICAL HISTORY: Anal cancer Needs long-term intravenous access for therapy. PROCEDURE: Hand hygiene obtained with soap and water and alcohol-based hand rub. After informed consent, the skin overlying the left upper extremity vein was localized with ultrasoun d and noted to be compressible and patent. An ultrasound image was obtained and submitted on the pat ient's chart. The overlying skin was prepped and draped and Lidocaine was used for local anesthesia. A skin court was made with a scalpel. Access was gained to the vein under ultrasound guidance with a 21 gauge needle and a 0.018 inch wire was advanced. Access site was dilated with Peel-Away sheath and catheter tailored to the appropriate length and advanced such that the distal tip is at the cavoa trial junction. Spot image was obtained verifying placement. Catheter was fixed to the skin and a s terile dressing was placed following hemostasis. Catheter was aspirated and flushed with saline. Philip cortes was discharged in stable condition without complication. Maximal barrier technique is utilized. Ultrasound image is documented on the chart. Ultrasound used with sterile technique. Fluoro time and fluoroscopic images submitted to document procedure: 220 intraoperative C-arm images, 0.3 minutes fluoroscopy time IMPRESSION: STATUS POST ULTRASOUND AND FLUOROSCOPIC GUIDED PICC LINE PLACEMENT, READY FOR USE. THIS PROCEDURE WAS PERFORMED BY THE UNDERSIGNED.
== END 2020-09-18 12:17 | disposition home or self-care (01) ==
LOC: CATHCVL 09:59
PROVIDERS: ATTEND Radiology Diagnostic Radiology
DX: C44.520 Squamous cell carcinoma of anal skin (principal); Z90.49 Acquired absence of other specified parts of digestive tract; Z98.890 Other specified postprocedural states; Z20.822 Contact with and (suspected) exposure to COVID-19; Z80.1 Family history of malignant neoplasm of trachea, bronchus and lung; Z86.19 Personal history of other infectious and parasitic diseases; F17.210 Nicotine dependence, cigarettes, uncomplicated; J44.9 Chronic obstructive pulmonary disease, unspecified; Z79.899 Other long term (current) drug therapy
CPT/HCPCS: 36573; 80051; 82565; 84520; 85025; 81025; 87635; J2001

== ENCOUNTER → 2020-09-22 | Outpatient (CLI) | payer OTHER | LOC: CPPFTMAIN 08:26 | PROVIDERS: ATTEND Internal Medicine Hematology & Oncology | DX: Z01.818 Encounter for other preprocedural examination (principal); J44.9 Chronic obstructive pulmonary disease, unspecified; Z87.891 Personal history of nicotine dependence | CPT/HCPCS: 94060; 94726; 94729 ==

== ENCOUNTER 2020-10-28 20:09 | Observation (INO) | payer OTHER ==
--- NOTE | 2020-10-28 20:29 | ED ---
General Adult HPI - General Chief complaint: Chest Pain Stated complaint: low BP, rapid heart rate Time Seen by Provider: 10/28/20 20:16 Source: patient, family, RN notes reviewed, old records reviewed Mode of arrival: ambulatory Limitations: no limitations - History of Present Illness Initial comments: 50-year-old female presents for evaluation chest pain, indigestion. Patient is currently on potassium supplementation she believes this is causing her to have some indigestion. She has some anterior chest discomfort throughout the day today. She contacted her oncologist who recommended she present to the emergency department for evaluation. She is currently being treated for anal cancer. She completed chemotherapy about one week ago and has some additional radiation treatments pending. She denies fever. She denies significant dyspnea. She denies cough. Denies lower extremity pain or swelling. - Related Data Home Medications Medication Instructions Recorded Confirmed Albuterol Inhaler [Ventolin Hfa 2 puff INHALATION DAILY PRN 07/02/20 09/16/20 Inhaler] Ascorbic Acid [Vitamin C] 500 mg PO DAILY 09/16/20 09/16/20 Aspirin/Sod Bicarb/Citric Acid 1 each PO DAILY PRN 09/16/20 09/16/20 [[place] Original Tab Eff] Cholecalciferol [Vitamin D3 (25 25 mcg PO DAILY 09/16/20 09/16/20 Mcg = 1000 Iu)] Psyllium Husk (with Sugar) 1 dose PO DAILY 09/16/20 09/16/20 [Metamucil Powder] Sennosides [Ex-Lax] 15 mg PO HS 09/16/20 09/16/20 Previous Rx's Medication Instructions Recorded Docusate [Colace] 100 mg PO BID #20 capsule 07/17/20 Ibuprofen [Motrin] 600 mg PO Q6HR PRN #40 tab 07/17/20 Allergies Allergy/AdvReac Type Severity Reaction Status Date / Time No Known Allergies Allergy Verified 10/28/20 20:11 Review of Systems ROS Statement: Those systems with pertinent positive or pertinent negative responses have been documented in the HPI. ROS Other: All systems not noted in ROS Statement are negative. 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 hemorrhoid surgery 07/27/20 Past Anesthesia/Blood Transfusion Reactions: No Reported Reaction, Motion Sickness Past Psychological History: Anxiety Smoking Status: Current every day smoker Past Alcohol Use History: Rare Past Drug Use History: None Reported - Past Family History Father Family Medical History: Cancer General Exam Limitations: no limitations General appearance: alert, in no apparent distress Head exam: Present: atraumatic, normocephalic Eye exam: Present: normal appearance, PERRL ENT exam: Present: normal exam Neck exam: Present: normal inspection. Absent: tenderness, meningismus Respiratory exam: Present: normal lung sounds bilaterally. Absent: respiratory distress, wheezes Cardiovascular Exam: Present: regular rate, normal rhythm GI/Abdominal exam: Present: soft. Absent: distended, tenderness, guarding Extremities exam: Present: normal inspection, normal capillary refill. Absent: pedal edema, calf tenderness Neurological exam: Present: alert, oriented X3, CN II-XII intact. Absent: motor sensory deficit Psychiatric exam: Present: normal affect, normal mood Skin exam: Present: warm, dry, intact. Absent: cyanosis, diaphoretic Course Vital Signs 10/28/20 10/28/20 20:11 21:14 Temperature 98.3 F Pulse Rate 108 H 92 Respiratory 20 16 Rate Blood Pressure 110/64 106/60 O2 Sat by Pulse 97 98 Oximetry EKG Findings - EKG Comments: EKG Findings:: EKG: Normal sinus rhythm, prolonged QT, rate of 98, CA interval 164, QRS duration 82, QTC 480, no ST segment elevation. Medical Decision Making - Medical Decision Making 50-year-old female with chest pain, indigestion. Patient has previous history of cholecystectomy. No abdominal pain. No vomiting. No history of CAD. EKG sinus rhythm without ST segment elevation. Chest x-rays negative for acute cardio pulmonary disease. She has a CBC showing a mild anemia, no other acute laboratory abnormalities. D-dimer is 0.56, troponin is 0.012. She is hemodynamically stable. She will be placed in observation for chest pain rule out, repeat cardiac enzymes. Case discussed with Dr. Rea who will admit. - Lab Data Result diagrams: 10/28/20 20:39 10/28/20 20:39 Lab Results 10/28/20 10/28/20 10/28/20 Range/Units 20:39 20:39 20:39 WBC 4.9 (3.8-10.6) k/uL RBC 3.43 L (3.80-5.40) m/uL Hgb 11.6 D (11.4-16.0) gm/dL Hct 32.5 L (34.0-46.0) % MCV 94.7 (80.0-100.0) fL MCH 33.7 (25.0-35.0) pg MCHC 35.6 (31.0-37.0) g/dL RDW 17.2 H (11.5-15.5) % Plt Count 147 L (150-450) k/uL MPV 7.6 Neutrophils % 87 % Lymphocytes % 7 % Monocytes % 4 % Eosinophils % 1 % Basophils % 0 % Neutrophils # 4.2 (1.3-7.7) k/uL Lymphocytes # 0.3 L (1.0-4.8) k/uL Monocytes # 0.2 (0-1.0) k/uL Eosinophils # 0.1 (0-0.7) k/uL Basophils # 0.0 (0-0.2) k/uL Anisocytosis Slight Macrocytosis Slight PT 9.7 (9.0-12.0) sec INR 0.9 (<1.2) APTT 19.7 L (22.0-30.0) sec D-Dimer 0.56 (<0.60) mg/L FEU Sodium 137 (137-145) mmol/L Potassium 3.6 (3.5-5.1) mmol/L Chloride 103 (98-107) mmol/L Carbon Dioxide 26 (22-30) mmol/L Anion Gap 8 mmol/L BUN 23 H (7-17) mg/dL Creatinine 0.58 (0.52-1.04) mg/dL Est GFR (CKD-EPI)AfAm >90 (>60 ml/min/1.73 sqM) Est GFR (CKD-EPI)NonAf >90 (>60 ml/min/1.73 sqM) Glucose 118 H (74-99) mg/dL Calcium 9.0 (8.4-10.2) mg/dL Magnesium 2.1 (1.6-2.3) mg/dL Total Bilirubin 0.5 (0.2-1.3) mg/dL AST 51 H (14-36) U/L ALT 78 H (4-34) U/L Alkaline Phosphatase 122 (38-126) U/L Troponin I (0.000-0.034) ng/mL Total Protein 6.6 (6.3-8.2) g/dL Albumin 4.0 (3.5-5.0) g/dL Lipase 99 (23-300) U/L 10/28/20 Range/Units 20:39 WBC (3.8-10.6) k/uL RBC (3.80-5.40) m/uL Hgb (11.4-16.0) gm/dL Hct (34.0-46.0) % MCV (80.0-100.0) fL MCH (25.0-35.0) pg MCHC (31.0-37.0) g/dL RDW (11.5-15.5) % Plt Count (150-450) k/uL MPV Neutrophils % % Lymphocytes % % Monocytes % % Eosinophils % % Basophils % % Neutrophils # (1.3-7.7) k/uL Lymphocytes # (1.0-4.8) k/uL Monocytes # (0-1.0) k/uL Eosinophils # (0-0.7) k/uL Basophils # (0-0.2) k/uL Anisocytosis Macrocytosis PT (9.0-12.0) sec INR (<1.2) APTT (22.0-30.0) sec D-Dimer (<0.60) mg/L FEU Sodium (137-145) mmol/L Potassium (3.5-5.1) mmol/L Chloride (98-107) mmol/L Carbon Dioxide (22-30) mmol/L Anion Gap mmol/L BUN (7-17) mg/dL Creatinine (0.52-1.04) mg/dL Est GFR (CKD-EPI)AfAm (>60 ml/min/1.73 sqM) Est GFR (CKD-EPI)NonAf (>60 ml/min/1.73 sqM) Glucose (74-99) mg/dL Calcium (8.4-10.2) mg/dL Magnesium (1.6-2.3) mg/dL Total Bilirubin (0.2-1.3) mg/dL AST (14-36) U/L ALT (4-34) U/L Alkaline Phosphatase (38-126) U/L Troponin I <0.012 (0.000-0.034) ng/mL Total Protein (6.3-8.2) g/dL Albumin (3.5-5.0) g/dL Lipase (23-300) U/L Disposition Clinical Impression: Chest pain Disposition: ADMITTED IP TO THIS HOSP Condition: Stable Is patient prescribed a controlled substance at d/c from ED?: No Referrals: Chuyita Simmons MD [Primary Care Provider] - 1-2 days Decision to Admit Reason: Admit from EC Decision Date: 10/28/20 Decision Time: 22:05
[2020-10-28 20:48] LABS: Anisocytosis Slight; Basophils % (A) 0 %; Eosinophils # (A) 0.1 k/uL (0-0.7); Eosinophils % (A) 1 %; HCT 32.5 % (34.0-46.0); Lymphocytes # (A) 0.3 k/uL (1.0-4.8); Lymphocytes % (A) 7 %; MCH 33.7 pg (25.0-35.0); MCHC 35.6 g/dL (31.0-37.0); MCV 94.7 fL (80.0-100.0); Macrocytosis Slight; Mean Platelet Volume 7.6; Monocytes # (A) 0.2 k/uL (0-1.0); Monocytes % (A) 4 %; Neutrophils # (A) 4.2 k/uL (1.3-7.7); Neutrophils % (A) 87 %; Platelet Count 147 k/uL (150-450); RBC 3.43 m/uL (3.80-5.40); RDW 17.2 % (11.5-15.5); WBC 4.9 k/uL (3.8-10.6)
--- NOTE | 2020-10-28 20:56 | XR ---
EXAMINATION TYPE: XR chest 2V DATE OF EXAM: 10/28/2020 COMPARISON: 02/23/2019 HISTORY: Chest pain TECHNIQUE: FINDINGS: Heart and mediastinum are normal. Lungs are clear. Diaphragm is normal. Bony thorax is inta ct. There are chest leads. There is left-sided central venous catheter with tip in the superior vena cava. IMPRESSION: Normal chest. No change.
[2020-10-28 21:00] LABS: HGB 11.6 gm/dL (11.4-16.0)
[2020-10-28 21:01] LABS: ALT 78 U/L (4-34); AST 51 U/L (14-36); African American GFR (CKD) >90 (>60 ml/min/1.73 sqM); Alkaline Phosphatase 122 U/L (38-126); Anion Gap 8 mmol/L; Blood Urea Nitrogen 23 mg/dL (7-17); Carbon Dioxide 26 mmol/L (22-30); Chloride 103 mmol/L (98-107); Glucose 118 mg/dL (74-99); Lipase 99 U/L (23-300); Magnesium 2.1 mg/dL (1.6-2.3); Non-African American GFR(CKD) >90 (>60 ml/min/1.73 sqM); Potassium 3.6 mmol/L (3.5-5.1); Sodium 137 mmol/L (137-145); Total Bilirubin 0.5 mg/dL (0.2-1.3); Total Protein 6.6 g/dL (6.3-8.2)
[2020-10-28 21:14] LABS: D-Dimer 0.56 mg/L FEU (<0.60); INR 0.9 (<1.2); Prothrombin Time 9.7 sec (9.0-12.0)
[2020-10-28 21:21] LABS: Partial Thromboplastin Time 19.7 sec (22.0-30.0)
[2020-10-28] MEDS ORDERED: SODIUM CHLORIDE 0.9% 500 ML 500 ML IV ONE (21:55)
[2020-10-28] MEDS ORDERED: ASPIRIN 325 MG TAB PO STA (21:55)
[2020-10-28] MEDS ORDERED: PANTOPRAZOLE 40 MG/10 ML VIAL IVP STA (21:55)
[2020-10-28] MEDS ORDERED: MORPHINE SULFATE 4 MG/ML SYRINGE IV PRN (22:01)
[2020-10-28] MEDS ORDERED: ACETAMINOPHEN TAB 325 MG TAB PO PRN (22:01)
[2020-10-28] MEDS ORDERED: NALOXONE 0.4 MG/ML 1 ML VIAL IV PRN (22:01)
[2020-10-28] MEDS: SODIUM CHLORIDE 0.9% 1,000 ML IV SCH (22:09)
[2020-10-29] MEDS ORDERED: POTASSIUM CHLORIDE ER 20 MEQ TAB.ER PO STA (07:41)
[2020-10-29 07:52] VITALS: RESP 16
[2020-10-29] MEDS ORDERED: PANTOPRAZOLE 40 MG/10 ML VIAL IV SCH (09:00)
[2020-10-29] MEDS ORDERED: HEPARIN SODIUM,PORCINE/PF 5,000 UNIT/0.5 ML SYRINGE SQ SCH (09:00)
[2020-10-29] MEDS: SODIUM CHLORIDE 0.9% 1,000 ML IV SCH (10:26)
--- NOTE | 2020-10-29 11:00 | ECHOF ---
Referral Reason:chest pain MEASUREMENTS -------- HEIGHT: 154.9 cm WEIGHT: 73.5 kg BP: 105/68 RVIDd: 2.4 cm (< 3.3) IVSd: 1.1 cm (0.6 - 1.1) LVIDd: 4.5 cm (3.9 - 5.3) LVPWd: 1.1 cm (0.6 - 1.1) IVSs: 1.6 cm LVIDs: 2.9 cm LVPWs: 1.6 cm LA Diam: 3.1 cm (2.7 - 3.8) Ao Diam: 3.5 cm (2.0 - 3.7) AV Cusp: 2.4 cm (1.5 - 2.6) MV EXCURSION: 23.948 mm (> 18.000) MV EF SLOPE: 101 mm/s (70 - 150) EPSS: 0.8 cm MV E Barry: 0.64 m/s MV DecT: 233 ms MV A Barry: 0.80 m/s MV E/A Ratio: 0.80 RAP: 5.00 mmHg RVSP: 27.16 mmHg FINDINGS -------- Sinus rhythm. This was a technically adequate study. The left ventricular size is normal. There is borderline concentric left ventricular hypertrophy. Overall left ventricular systolic function is normal with, an EF between 60 - 65 %. The right ventricle is normal in size. The left atrium is normal in size. The right atrium is normal in size. Interatrial and interventricular septum intact. The aortic valve is trileaflet, and appears structurally normal. No aortic stenosis or regurgitation. The mitral valve is normal. Mild tricuspid regurgitation present. Right ventricular systolic pressure is normal at < 35 mmHg. The pulmonic valve was not well visualized. The aortic root size is normal. Normal inferior vena cava with normal inspiratory collapse consistent with estimated right atrial pre ssure of 5 mmHg. There is no pericardial effusion. CONCLUSIONS -------- 1. The left ventricular size is normal. 2. There is borderline concentric left ventricular hypertrophy. 3. Overall left ventricular systolic function is normal with, an EF between 60 - 65 %. 4. The aortic valve is trileaflet, and appears structurally normal. No aortic stenosis or regurgitati on. 5. Mild tricuspid regurgitation present. 6. There is no pericardial effusion. TICKETER: Renetta Hewitt RDCS
--- NOTE | 2020-10-29 13:17 | CONS ---
CONSULTATION Maru Murillo is a 50-year-old lady with a known history of what seems to be bronchial asthma with past history of smoking. She came into the hospital mostly with what seems to be complaints of epigastric discomfort, indigestion type picture, and then was found to have hypokalemia. She has history of skin cancer in the anal area and she just went through chemotherapy and is now considering some radiation therapy. She was hypokalemic and has been supplementing potassium and with potassium pills which are large, she was having some epigastric discomfort. Her troponins are normal. EKG is unremarkable. She is resting comfortably without symptoms. There is also an EKG that was performed which revealed some QT prolongation. The patient has used Zofran before. She has not taken Zofran in over a week. She is comfortable and resting at the time of my evaluation. 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 ALLERGIES: None. MEDICATIONS: At home include: Aspirin 81 mg daily, vitamin supplements. She also takes some Metamucil. She takes Zofran but only on a p.r.n. basis. Has not taken at least for a week. PHYSICAL EXAMINATION: On examination, blood pressure is 110/70, pulse rate 68 per minute regular. HEENT unremarkable. Fundus was not examined by me. NECK is supple. No JVD. I do not hear a carotid bruit. There is no thyromegaly. HEART exam reveals S1, S2 heard normally without rub, murmur or gallop. LUNGS are clear. ABDOMEN is soft, nontender. Lower EXTREMITIES reveal palpable pulses. No edema. CENTRAL NERVOUS SYSTEM is normal. EKG revealed sinus mechanism, mild QT prolongation. No acute changes. LABORATORY DATA: Reveals unremarkable troponins. D-dimer is normal. IMPRESSION: 1. Atypical epigastric chest pain. 2. QT prolongation. 3. History of chemotherapy and hypokalemia. RECOMMENDATIONS: I am recommending we supplement potassium. Repeat an EKG, echocardiogram, place her on subcu heparin and if QT prolongation resolves she can probably be discharged later on today or tomorrow. Stress test will be performed as an outpatient in the next few weeks. Her pain does not appear to be of cardiac etiology. I discussed my thoughts in detail with the patient. Thank you very much for the consult. MMODL / IJN: [id number] /
[2020-10-29 14:29] VITALS: BP 103/66; PULSE 98; TEMP 98.5
[2020-10-29] MEDS ORDERED: FAMOTIDINE 20 MG/2 ML VIAL IV SCH (21:00)
== END 2020-10-29 16:43 | disposition home or self-care (01) ==
LOC: EC 20:09 → 6NMEDSUR 22:01
PROVIDERS: ADMIT Family Medicine; ATTEND Family Medicine
DX: R10.13 Epigastric pain (principal); R94.31 Abnormal electrocardiogram [ECG] [EKG]; C21.0 Malignant neoplasm of anus, unspecified; D64.9 Anemia, unspecified; E87.6 Hypokalemia; F17.200 Nicotine dependence, unspecified, uncomplicated; J44.9 Chronic obstructive pulmonary disease, unspecified; F41.9 Anxiety disorder, unspecified; Z79.82 Long term (current) use of aspirin; Z79.899 Other long term (current) drug therapy; Z90.49 Acquired absence of other specified parts of digestive tract; Z86.69 Personal history of other diseases of the nervous system and sense organs; Z92.21 Personal history of antineoplastic chemotherapy; Z87.19 Personal history of other diseases of the digestive system
CPT/HCPCS: 96374; 99285; 36415; 93005; 93306; 85379; 80053; 83690; 83735; 84484 ×2; 85025; 85610; 85730; 71046; G0378 ×2; C9113 ×2

== ENCOUNTER → 2020-12-11 | Outpatient (CLI) | payer OTHER ==
[2020-12-11 17:17] LABS: African American GFR (CKD) >90 (>60 ml/min/1.73 sqM); Blood Urea Nitrogen 19 mg/dL (7-17); Non-African American GFR(CKD) >90 (>60 ml/min/1.73 sqM)
--- NOTE | 2020-12-15 11:05 | CT ---
EXAMINATION TYPE: CT ChestAbdPelvis w con DATE OF EXAM: 12/11/2020 COMPARISON: PET CT fusion 09/12/[address] chest 08/27/2020 CT Chest Abdomen Pelvis With 07/02/2020 HISTORY: h/o skin CA, obs for mets CT DLP: 865.4 mGycm CONTRAST: CT scan of the chest, abdomen and pelvis is performed with Oral Contrast and with IV Contrast, patien t injected with 100 mL of Isovue 300. CT Chest: LUNGS: Emphysematous changes noted. Identified within the medial segment right middle lobe image 35 o f 61 is a 9.5 mm pulmonary nodular density which was not present previously. No additional nodules ar e seen. I cannot exclude a solitary metastatic lesion. No pleural effusion or CT evidence of intersti tial lung disease. MEDIASTINUM: Thoracic aorta is of normal caliber. The heart is not enlarged. No evidence for media stinal mass or adenopathy. HILAR STRUCTURES: No evidence for mass. No hilar adenopathy is appreciated. OTHER: No significant abnormality. CONTRAST CT ABDOMEN AND PELVIS FINDINGS: LIVER/GB: There is mild hepatic steatosis. The gallbladder surgically absent. No space occupying he patic lesion. Biliary tree is of normal caliber. PANCREAS: No inflammation. No distinct mass. SPLEEN: No splenic enlargement. No lesion seen. ADRENALS: No nodule. No thickening. KIDNEYS/BLADDER: No hydronephrosis. No nephrolithiasis. No disctinct renal mass. BOWEL: Normal appendix. Normal bowel caliber. No inflammation. GENITAL ORGANS: No gross abnormality. LYMPH NODES: No greater than 1cm abdominal or pelvic lymph nodes are appreciated. AORTA: No significant abnormality. OSSEOUS STRUCTURES: No significant abnormality is seen. OTHER: No significant additional abnormality is seen. IMPRESSION: 1. No evidence for recurrent mass in the anal region. No CT evidence to suggest metastatic disease at this time.
== END | disposition home or self-care (01) ==
LOC: RADCTMAIN 15:59
PROVIDERS: ATTEND Internal Medicine Hematology & Oncology
DX: Z85.828 Personal history of other malignant neoplasm of skin (principal)
CPT/HCPCS: 82565; 84520; 71260; 74177; 36415; Q9967

== ENCOUNTER 2021-03-08 13:29 | Day surgery (SDC) | payer OTHER ==
[2021-02-26 09:38] VITALS: BMI 28.3
[~2021-03-08 13:29] MED LIST changes: -ACETAMINOPHEN TAB 500 MG TAB PO PRN; -DEXAMETHASONE SOD PHOSPHATE 4 MG/ML 1 ML VIAL IV ONE; -HEPARIN SODIUM,PORCINE 5,000 UNIT/ML 1 ML VIAL SQ PRN; -ONDANSETRON 4 MG/2 ML VIAL IVP ONE; -Pre Op ABX Message 1 EACH MISC MISCELLANE ONE
[2021-03-08 14:26] VITALS: BP 124/76; PULSE 92; RESP 20; TEMP 97
== END 2021-03-08 14:30 | disposition home or self-care (01) ==
LOC: ORWHC2ENDO 13:29
PROVIDERS: ATTEND Surgery
DX: Z53.9 Procedure and treatment not carried out, unspecified reason (principal)

== ENCOUNTER 2021-04-06 07:28 | Day surgery (SDC) | payer OTHER ==
[2021-04-01 15:12] VITALS: BMI 27.1
[~2021-04-06 07:28] MED LIST changes: +ACETAMINOPHEN TAB 500 MG TAB PO PRN; +DEXAMETHASONE SOD PHOSPHATE 4 MG/ML 1 ML VIAL IV ONE; +HEPARIN SODIUM,PORCINE/PF 5,000 UNIT/0.5 ML SYRINGE SQ PRN; +HYDROmorphone 0.5 MG/0.5 ML SYRINGE IVP PRN; -LACTATED RINGERS 1,000 ML IV SCH; +ONDANSETRON 4 MG/2 ML VIAL IVP ONE; +Pre Op ABX Message 1 EACH MISC MISCELLANE ONE
[2021-04-06 08:03] VITALS: RESP 16; TEMP 98.4
[2021-04-06] MEDS: LACTATED RINGERS 1,000 ML IV SCH ×2 (08:19→09:14)
--- NOTE | 2021-04-06 09:04 | P.GSHP ---
History of Present Illness H&P Date: 04/06/21 Chief Complaint: Anal squamous cell carcinoma This is a 50-year-old female with history of anal squamous cell carcinoma. Patient has a nonhealing wound after radiation and increased pain and possible masseter anus. 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 History of Any Multi-Drug Resistant Organisms: None Reported Past Surgical History: Cholecystectomy, Tonsillectomy, Uterine Ablation Additional Past Surgical History / Comment(s): Hemorrhoidectomy. Past Anesthesia/Blood Transfusion Reactions: No Reported Reaction, Motion Sickness Past Psychological History: Anxiety Additional Psychological History / Comment(s): Claustrophobic. Smoking Status: Current every day smoker Past Alcohol Use History: Rare Additional Past Alcohol Use History / Comment(s): Smokes 1-2 PPD, has smoked since age 18. Past Drug Use History: None Reported - Past Family History Father Family Medical History: Cancer Additional Family Medical History / Comment(s): Lung cancer. Medications and Allergies Home Medications Medication Instructions Recorded Confirmed Type Albuterol Inhaler [Ventolin Hfa 2 puff INHALATION QID PRN 07/02/20 04/01/21 History Inhaler] Sennosides [Ex-Lax Chew] 15 mg PO DAILY PRN 09/16/20 04/06/21 History Acetaminophen Tab [Tylenol] 1,000 mg PO Q6H PRN 10/28/20 04/06/21 History Albuterol Nebulized [Ventolin 2.5 mg INHALATION QID PRN 10/28/20 04/06/21 History Nebulized] Fluticasone/Umeclidin/Vilanter 2 puff INHALATION DAILY 10/28/20 04/06/21 History [Trelegy Ellipta 100-62.5-25] traMADol HCl [Ultram] 50 mg PO Q6HR PRN 02/26/21 04/01/21 History Ibuprofen 800 mg PO Q8H PRN 04/01/21 04/06/21 History Allergies Allergy/AdvReac Type Severity Reaction Status Date / Time codeine AdvReac Nausea & Verified 04/01/21 14:51 [From Tylenol-Codeine #3] Vomiting Surgical - Exam Vital Signs Temp Pulse Resp BP Pulse Ox 98.4 F 80 16 138/75 96 04/06/21 08:00 04/06/21 08:00 04/06/21 08:00 04/06/21 08:00 04/06/21 08:00 - General well nourished, no distress - Eyes PERRL - ENT normal pinna - Neck no masses - Respiratory normal expansion - Cardiovascular Rhythm: regular - Abdomen Abdomen: soft, non tender - Rectum Large 3 x 5 cm wound with granulation tissue had anus Assessment and Plan Assessment: History of anal squamous cell carcinoma. We'll perform exam under anesthesia and possible biopsy of mass.
[2021-04-06] MEDS ORDERED: BUPIVACAIN-EPI 0.25%-1:200,000 30 ML VIAL SQ ONE ×3 (09:14→09:37)
[2021-04-06] MEDS ORDERED: KETAMINE 10 MG/ML 20 ML VIAL ONE (09:15)
[2021-04-06] MEDS ORDERED: PROPOFOL 10 MG/ML 20 ML VIAL IV ONE (09:15)
[2021-04-06] MEDS ORDERED: .fentaNYL (PF) 50 MCG/ML 2 ML AMP ONE (09:15)
[2021-04-06] MEDS ORDERED: MIDAZOLAM 2 MG/2 ML VIAL ONE (09:15)
--- NOTE | 2021-04-06 10:02 | P.OP ---
Date of Procedure: 04/06/21 Preoperative Diagnosis: Squamous cell carcinoma anus Postoperative Diagnosis: Squamous cell carcinoma anus Procedure(s) Performed: Exam under anesthesia Anal wound biopsy Anesthesia: MAC Surgeon: Bernardino Borden Pathology: other (Perianal wound biopsy) Condition: stable Disposition: PACU Description of Procedure: The patient's placed on the operating table in the prone position. Her anus was prepped and draped usual fashion. The patient had a large chronic wound of the right perianal area. The wound extended from the anus in a semicircular fashion approximately 10 cm in diameter. The wound approach the posterior vagina. There was necrotic tissue within the wound. This was debrided with sharp dissection. Several biopsies of the hardened tissue within the perineal wound were biopsied. It was unclear if this was due to radiation induced scarring or recurrent squamous cell carcinoma. The Bovie was used for hemostasis. Patient tolerated the procedure well. I discussed with the patient's mother the size of the wound with proximity to the anus. If the biopsy benign. Patient may require diverting colostomy. To facilitate local wound healing
[2021-04-06 10:13] VITALS: BP 134/71; PULSE 90
== END 2021-04-06 11:45 | disposition home or self-care (01) ==
LOC: OR 07:28
PROVIDERS: ATTEND Surgery
DX: C21.0 Malignant neoplasm of anus, unspecified (principal)
CPT/HCPCS: 46606; 88305; J2250; J1100; J2405; J3010; J2704

== ENCOUNTER → 2021-04-15 | Outpatient (CLI) | payer OTHER ==
--- NOTE | 2021-04-16 07:18 | PE ---
EXAMINATION TYPE: PET CT fusion skull to thigh DATE OF EXAM: 04/15/2021 COMPARISON: Most recent CT December 11, 2020 and prior PET/CT September 12, 2020 HISTORY: Anal cancer on biopsy diagnosed July 2020 completed chemotherapy in September. Recurrent local cancer on biopsy last week. TECHNIQUE: Following the intravenous administration of 8.52 mCi of F-18 FDG, whole body images are p erformed from the skull base to the midthigh. Images are reviewed on the computer in the coronal, ax ial, and sagittal planes. Reconstructed rotating images are created on independent workstation and r eviewed on the computer. A localization and attenuation correction CT is performed in conjunction w ith the PET scan. Blood glucose level equaled 111. SCAN: Subsequent Scan FINDINGS: SKULL BASE AND NECK: No areas of abnormal hypermetabolic uptake. CHEST, MEDIASTINUM, AND HILAR REGION: No areas of abnormal hypermetabolic uptake. Background mild to moderate underlying emphysematous change is redemonstrated. ABDOMEN AND PELVIS: Hypermetabolic uptake beginning inferior aspect of the bladder along the posterio r rectum with concentric appearance extending to the anal verge is now present. Length of uptake more prominent than on prior PET/CT but there is likely urine leak or contamination. Max SUV is 13.34 pooja sal 18.66 on prior PET/CT and this may even be lower given the area of the expected contamination. There is however new hypermetabolic 1.8 x 1.2 cm right groin lymph node axial image 220, max SUV is 7 .61. In addition there is new hypermetabolic right external iliac chain 1.3 x 1.0 cm lymph node axial image 204 Max SUV is 5.72 Normal excretion is present. No new hypermetabolic liver lesions. OSSEOUS STRUCTURES: No areas of abnormal hypermetabolic uptake. OTHER CT: Nasal septum remains slightly deviated to right of midline. Cholecystectomy clips. Occasional scattered pelvic phleboliths. Exaggerated kyphosis. Facet arthropat hy lower lumbar spine. IMPRESSION: Persistent active neoplasm at level of rectum and anus identified. New pelvic and right g roin adenopathy noted.
== END | disposition home or self-care (01) ==
LOC: RADPETMAIN 13:12
PROVIDERS: ATTEND Internal Medicine Hematology & Oncology
DX: C21.1 Malignant neoplasm of anal canal (principal); C20 Malignant neoplasm of rectum; R59.0 Localized enlarged lymph nodes
CPT/HCPCS: 78815; A9552

== ENCOUNTER → 2021-08-06 | Outpatient (CLI) | payer OTHER | END | disposition home or self-care (01) | LOC: RADXRMAIN 12:40 | PROVIDERS: ATTEND Internal Medicine Hematology & Oncology | DX: Z53.9 Procedure and treatment not carried out, unspecified reason (principal) ==

== ENCOUNTER 2021-08-18 12:16 | Inpatient (IN) | payer OTHER ==
[~2021-08-18 12:16] MED LIST changes: -ACETAMINOPHEN TAB 500 MG TAB PO PRN; +CHLORHEXIDINE GLUCONATE 15 ML CUP MUCOUS MEM ONE; -DEXAMETHASONE SOD PHOSPHATE 4 MG/ML 1 ML VIAL IV ONE; -HEPARIN SODIUM,PORCINE/PF 5,000 UNIT/0.5 ML SYRINGE SQ PRN; -HYDROmorphone 0.5 MG/0.5 ML SYRINGE IVP PRN; -ONDANSETRON 4 MG/2 ML VIAL IVP ONE; -Pre Op ABX Message 1 EACH MISC MISCELLANE ONE
--- NOTE | 2021-08-18 12:33 | ED ---
General Adult HPI - General Chief complaint: Weakness Stated complaint: Hypotension Time Seen by Provider: 08/18/21 12:22 Source: patient, EMS, RN notes reviewed Mode of arrival: EMS Limitations: physical limitation - History of Present Illness Initial comments: Patient is a pleasant 51-year-old female presenting to the emergency department with hypotension. Patient has not been feeling well for the past couple days, mostly today. Patient has not ate or drink much in the last 2-3 days. 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 Patient has done multiple treatments for this. Patient is currently not on treatment. Patient was seen outside facility diagnosed with pneumonia. Patient was given IV fluids, blood cultures were done. Elevated lactic acid and white blood cell count. Chest x- ray concerning for pneumonia. - Related Data Home Medications Medication Instructions Recorded Confirmed Albuterol Inhaler [Ventolin Hfa 2 puff INHALATION QID PRN 07/02/20 04/07/21 Inhaler] Sennosides [Ex-Lax Chew] 15 mg PO DAILY PRN 09/16/20 04/07/21 Acetaminophen Tab [Tylenol] 1,000 mg PO Q6H PRN 10/28/20 04/07/21 Albuterol Nebulized [Ventolin 2.5 mg INHALATION QID PRN 10/28/20 04/07/21 Nebulized] Fluticasone/Umeclidin/Vilanter 2 puff INHALATION DAILY 10/28/20 04/07/21 [Trelegy Ellipta 100-62.5-25] traMADol HCl [Ultram] 50 mg PO Q6HR PRN 02/26/21 04/07/21 Ibuprofen 800 mg PO Q8H PRN 04/01/21 04/07/21 Allergies Allergy/AdvReac Type Severity Reaction Status Date / Time codeine AdvReac Nausea & Verified 08/18/21 12:31 [From Tylenol-Codeine #3] Vomiting Review of Systems ROS Statement: Those systems with pertinent positive or pertinent negative responses have been documented in the HPI. ROS Other: All systems not noted in ROS Statement are negative. Constitutional: Denies: fever Eyes: Denies: eye pain ENT: Denies: ear pain Respiratory: Reports: cough, dyspnea Endocrine: Reports: fatigue Gastrointestinal: Reports: as per HPI Genitourinary: Denies: dysuria Musculoskeletal: Denies: back pain Skin: Denies: rash Neurological: Reports: as per HPI Past Medical History Past Medical History: Cancer, Heart Failure, COPD Additional Past Medical History / Comment(s): "Bad headaches", constipation, sqamous cell skin cancer rectal area -receiving chemo. History of Any Multi-Drug Resistant Organisms: None Reported Past Surgical History: Cholecystectomy, Tonsillectomy, Uterine Ablation Additional Past Surgical History / Comment(s): Hemorrhoidectomy. Anal Biopsy. Past Anesthesia/Blood Transfusion Reactions: No Reported Reaction, Motion Sic kness Past Psychological History: Anxiety Smoking Status: Current every day smoker Past Alcohol Use History: Rare Past Drug Use History: Marijuana - Past Family History Father Family Medical History: Cancer Additional Family Medical History / Comment(s): Lung cancer. General Exam Limitations: physical limitation General appearance: alert Head exam: Present: atraumatic Eye exam: Present: normal appearance ENT exam: Present: mucous membranes dry Neck exam: Present: normal inspection Respiratory exam: Present: wheezes Cardiovascular Exam: Present: tachycardia GI/Abdominal exam: Present: soft. Absent: tenderness Rectal exam: Present: other (Several large open wounds with stage III and foul older.) External exam: Present: other (Left vulvar region with lesions) Extremities exam: Present: pedal edema Neurological exam: Present: alert Psychiatric exam: Present: flat affect Skin exam: Present: normal color Course Vital Signs 08/18/21 08/18/21 08/18/21 12:19 12:35 12:53 Temperature 97.9 F Pulse Rate 104 H 100 104 H Respiratory 20 20 20 Rate Blood Pressure 72/36 64/33 69/40 O2 Sat by Pulse 81 L 88 L 87 L Oximetry - Reevaluation(s) Reevaluation #1: 08/18/21 13:02 Case was discussed with roseann Oleary with Dr. Blackmon who will update him and they will consult. 08/18/21 13:11 Case also discussed with Dr. Santos, who will admit for Dr. Simmons Procedures - Central Line Placement Right Femoral Consent Obtained: verbal consent, emergent situation Patient Placed on Monitor/Pulse Ox: Yes Prep: mask, gown, gloves Central Line Prep: Chlorhexidine scrub Local Anesthesia Used: Lidocaine 1% Ultrasound Used for Placement: No Central Line Lumen Inserted: triple Bloods Obtained for Lab: No Central Line Position: good blood return, all ports aspirated, flushed, capped, sutured in place with 3-0 nylon Dressing Applied: Tegaderm Patient Tolerated Procedure: well, no complications Complications: none - Sepsis Sepsis Focused Exam #1 Time Sepsis Criteria Met: 12: Sepsis Focused Exam Date: 08/18/21 Sepsis Focused Exam Time: 12:57 Sepsis Focused Exam Complete: Yes Vital Signs & RN Notes Reviewed: Yes Capillary Refill: < 2 Seconds: Fingers, Toes Peripheral Pulses: Normal: Radial (R), Radial (L) Skin Color: Normal for Patient Respiratory Exam: wheezes Cardiovascular Exam: tachycardia Critical Care Time Critical Care Time: Yes Total Critical Care Time: 32 Disposition Clinical Impression: Septic shock, Wound of gluteal cleft, Pneumonia, Hypotension, Open wound of anus Disposition: ADMITTED IP TO THIS HOSP Condition: Critical Is patient prescribed a controlled substance at d/c from ED?: No Time of Disposition: 12:55
[2021-08-18] MEDS: NOREPINEPHRINE 32 MG in SODIUM CHLORIDE 0.9% 218 ML IV SCH (12:47)
[2021-08-18] MEDS ORDERED: VANCOMYCIN IV PER PHARMACY 1 EACH MISC MISCELLANE PRN (12:53)
[2021-08-18] MEDS ORDERED: SODIUM CHLORIDE 0.9% 1,000 ML IV STA (12:53)
[2021-08-18] MEDS ORDERED: PIPERACILLIN-TAZOBACTAM 3.375 GM in SODIUM CHLORIDE 0.9% 100 ML IVPB STA (12:54)
[2021-08-18] MEDS ORDERED: IPRATROPIUM-ALBUTEROL 3 ML NEB INHALATION PRN (12:57)
[2021-08-18] MEDS ORDERED: NALOXONE 0.4 MG/ML 1 ML VIAL IV PRN (12:57)
[2021-08-18] MEDS ORDERED: MORPHINE SULFATE 2 MG/ML SYRINGE IV PRN ×2 (12:57)
[2021-08-18] MEDS: SODIUM CHLORIDE 0.9% 1,000 ML IV SCH ×2 (13:12→19:55)
[2021-08-18] MEDS ORDERED: VANCOMYCIN 750 MG in SODIUM CHLORIDE 0.9% 250 ML IVPB ONE (13:15)
[2021-08-18 13:30] LABS: HCT 31.8 % (34.0-46.0); HGB 10.1 gm/dL (11.4-16.0); MCH 30.5 pg (25.0-35.0); MCHC 31.8 g/dL (31.0-37.0); MCV 95.8 fL (80.0-100.0); Mean Platelet Volume 7.8; Platelet Count 339 k/uL (150-450); RBC 3.31 m/uL (3.80-5.40); RDW 15.3 % (11.5-15.5); WBC 36.3 k/uL (3.8-10.6)
[2021-08-18 13:42] LABS: ALT 88 U/L (4-34); AST 160 U/L (14-36); African American GFR (CKD) >90 (>60 ml/min/1.73 sqM); Albumin 1.9 g/dL (3.5-5.0); Alkaline Phosphatase 204 U/L (38-126); Anion Gap 7 mmol/L; Blood Urea Nitrogen 57 mg/dL (7-17); Calcium 8.3 mg/dL (8.4-10.2); Carbon Dioxide 25 mmol/L (22-30); Chloride 105 mmol/L (98-107); Glucose 94 mg/dL (74-99); Non-African American GFR(CKD) 80 (>60 ml/min/1.73 sqM); Sodium 137 mmol/L (137-145); Total Bilirubin 0.7 mg/dL (0.2-1.3); Total Protein 4.9 g/dL (6.3-8.2)
[2021-08-18 13:47] LABS: INR 1.2 (<1.2); Prothrombin Time 12.6 sec (9.0-12.0)
[2021-08-18 13:48] LABS: Partial Thromboplastin Time 30.4 sec (22.0-30.0)
--- NOTE | 2021-08-18 14:09 | XR ---
EXAMINATION TYPE: XR chest 1V portable DATE OF EXAM: 08/18/2021 CLINICAL HISTORY: Fever. History of colon cancer. TECHNIQUE: Single AP portable supine view of the chest is obtained. COMPARISON: CT chest abdomen and pelvis December 11, 2020. Most recent PET/CT April 15, 2021. FINDINGS: Mild underlying emphysematous changes redemonstrated. New dense right upper lung pneumonic consolidation. Multifocal left mid to lower lung airspace opacities. Cardiac silhouette size stable within normal limits. Osseous structures are intact. IMPRESSION: New right upper lung masslike pneumonic consolidation. New multifocal left mid to lower l ean acute pneumonic infiltrates
[2021-08-18 14:56] LABS: Band Neutrophils % 12 %; Eosinophils # (M) 0.36 k/uL (0-0.7); Lymphocytes # (M) 0.73 k/uL (1.0-4.8); Monocytes # (M) 0.73 k/uL (0-1.0); Neutrophils % (M) 84 %; Nucleated Red Blood Cells 0 /100 WBC (0-0); Total Cells Counted 200
[2021-08-18 14:59] LABS: Toxic Granulation Present
[2021-08-18] MEDS: IPRATROPIUM-ALBUTEROL 3 ML NEB INHALATION SCH ×2 (15:24→18:30)
--- NOTE | 2021-08-18 17:15 | P.CNPUL ---
History of Present Illness Consult date: 08/18/21 Chief complaint: Multilobar pneumonia, shortness of breath and generalized weakness History of present illness: There is a 51-year-old here patient presented emergency department because of generalized weakness and hypotension. The patient apparently has not been feeling well for the past few days. She was unable to eat or drink and she was getting progressively more dehydrated. 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 Chris. The patient was treated with a combination of chemoradiation therapy. The patient had was also given a diverticular colostomy to prevent contamination of the perineal area as part of her ongoing cancer treatment. The patient subsequently progressed and currently she has a large area peritoneal ulcer which is a combination of a residual tumor involving the perineum and superinfection. Apparently the patient has been receiving wound care at home. She is a poor historian and her has noted that the wound itself has been becoming progressively more wet and purulent and foul-smelling. The wound is deep extending into the pelvis and possibly into the right thigh and the retroperitoneal area and the vaginal wall on the right. This area is quite painful to the point where the patient is unable to lay down the back and she is been essentially assuming the position of standing up on her knees. She apparently had fallen she currently has also a area of the tissue injury along the lateral wall of the thigh where there is an area of skin slough and necrotic center without acute drainage. The patient looks to be extremely cachectic, emaciated, body mass index of 20.8, malnourished, apprehensive, somewhat confused and short of breath. Family is at the bedside. No previous oncologic data is available in terms of her previous treatments. We'll contact oncologist's office to get more records regarding her previous history of anal cancer. Based on ongoing lethargy, weakness, shortness of breath, debility, the patient was brought into the emergency department by family members. What I'm still working NO problem one day today The patient at a time of her arrival, she was hypotensive and the blood pressure was as low at 64/33 and she was tachyca rdic and she was afebrile. Pulse ox was 81% on room air oxygen. Chest x-ray showed a new right upper lobe masslike consolidation in addition to areas of infiltration in the left mid and the left lower lung and this was consistent with multilobar pneumonia most on the right upper lobe. The patient's blood work showed a white cell count of 36.3 with a hemoglobin of 10 and a platelet count of 20 on 39. Correlation profile was normal. The serum bicarb was 25 with a BUN of 57 and a creatinine of 0.8, LFTs are abnormal with an AST of 160, ALT of 88, alkaline phosphatase of 204 and the patient is post cholecystectomy. COVID 19 testing was negative and the patient's influenza A and B screen were negative. A triple lumen catheter was established in the emergency department and the patient was given IV fluids. This was inserted in the right femoral vein by the emergency department physician. Following that, the patient was given IV fluids and she was started on combination of Zosyn and vancomycin. Patient is currently on 14 L oxygen high flow pulse ox ranging between 90-94%. Patient is also on norepinephrine infusion running at 0.2mcg/kg/m. Review of Systems Constitutional: Reports fatigue, Reports lethargy, Reports poor appetite, Repor ts weakness Eyes: denies as per HPI, denies blurred vision, denies bulging eye, denies decreased vision, denies diplopia, denies discharge, denies dry eye, denies irritation, denies itching, denies pain, denies photophobia, denies loss of peripheral vision, denies loss of vision, denies tunnel vision/blind spots Ears: deny: decreased hearing, ear discharge, earache, tinnitus Ears, nose, mouth and throat: Reports as per HPI Breasts: bilateral: as per HPI ( to;), absent: change in shape, gynecomastia, masses, nipple discharge, pain, skin changes, swelling Cardiovascular: Reports decreased exercise tolerance, Reports dyspnea on exertion Respiratory: Reports cough, Reports dyspnea Gastrointestinal: Reports as per HPI Genitourinary: Reports as per HPI (F who I was), Reports genital sores Menstruation: Reports as per HPI Musculoskeletal: Reports as per HPI (Dixie) Musculoskeletal: bilateral: ankle swelling (7), absent: ankle pain, ankle stiffness Integumentary: Reports as per HPI, Reports wounds Neurological: Reports as per HPI, Reports balance difficulties, Reports gait dysfunction Psychiatric: Reports as per HPI ( ICULeft-sided yellow-white ) Endocrine: Reports as per HPI, Reports fatigue Hematologic/Lymphatic: Reports as per HPI (Minutes before he comes here ) Allergic/Immunologic: Reports as per HPI Past Medical History Past Medical History: Cancer, Heart Failure, COPD Additional Past Medical History / Comment(s): "Bad headaches", constipation, sqamous cell skin cancer anal area -receiving chemo. History of Any Multi-Drug Resistant Organisms: None Reported Past Surgical History: Cholecystectomy, Tonsillectomy, Uterine Ablation Additional Past Surgical History / Comment(s): Hemorrhoidectomy. Anal Biopsy. Past Anesthesia/Blood Transfusion Reactions: No Reported Reaction, Motion Sickn ess Past Psychological History: Anxiety Smoking Status: Current every day smoker Past Alcohol Use History: Rare Past Drug Use History: Marijuana - Past Family History Father Family Medical History: Cancer Additional Family Medical History / Comment(s): Lung cancer. Medications and Allergies Home Medications Medication Instructions Recorded Confirmed Type Albuterol Inhaler [Ventolin Hfa 2 puff INHALATION RT-QID PRN 07/02/20 08/18/21 History Inhaler] Albuterol Nebulized [Ventolin 2.5 mg INHALATION RT-QID PRN 10/28/20 08/18/21 History Nebulized] Apixaban [Eliquis] 5 mg PO Q12H 08/18/21 08/18/21 History Docusate [Colace] 100 mg PO BID 08/18/21 08/18/21 History Gabapentin [Neurontin] 300 mg PO TID 08/18/21 08/18/21 History Morphine Sulfate ER [Ms Contin] 15 mg PO Q8H 08/18/21 08/18/21 History Morphine Sulfate ER [Ms Contin] 30 mg PO Q8H 08/18/21 08/18/21 History Morphine Sulfate [Morphine Sulfate 2 - 4 mg PO Q3H PRN 08/18/21 08/18/21 History 10 MG/5 ML] Allergies Allergy/AdvReac Type Severity Reaction Status Date / Time codeine AdvReac Nausea & Verified 08/18/21 13:34 [From Tylenol-Codeine #3] Vomiting Physical Exam Vitals: Vital Signs Temp Pulse Resp BP Pulse Ox 08/18/21 15:26 90 L 08/18/21 15:25 112 H 08/18/21 13:30 97.4 F L 107 H 18 81/44 90 L 08/18/21 13:20 96 18 99/39 95 04/27/22 13:10 101 H 22 57/25 95 08/18/21 13:05 104 H 19 74/36 90 L 08/18/21 12:53 104 H 20 69/40 87 L 08/18/21 12:35 100 20 64/33 88 L 08/18/21 12:19 97.9 F 104 H 20 72/36 81 L Intake and Output 08/18/21 08/18/21 08/18/21 06:59 14:59 22:59 Intake Total 4.300 Balance 4.300 Intake: Intake, IV Titration 4.300 Amount Norepinephrine 32 mg In 4.300 Sodium Chloride 0.9% 218 ml @ 0.05 MCG/KG/MIN 1. 169 mls/hr IV .Q24H [facility] Rx#:[id number] Other: Weight 49.895 kg Anxious, lethargic, currently on 14 L of oxygen nasal cannula, in mild degree of respirator distress Head exam was generally normal. There was no scleral icterus or corneal arcus. Mucous membranes were moist. Neck was supple and without jugular venous distension, thyromegaly, or carotid bruits. Carotids were easily palpable bilaterally. There was no adenopathy. Lungs sounds are diminished in the patient's crackles throughout the lung. Bilaterally more so on the right Cardiac exam revealed the PMI to be normally situated and sized. The rhythm was regular and no extrasystoles were noted during several minutes of auscultation. The first and second heart sounds were normal and physiologic splitting of the second heart sound was noted. There were no murmurs, rubs, clicks, or gallops. Abdominal exam revealed normal bowel sounds. The abdomen was soft, non-tender, and without masses, organomegaly, or appreciable enlargement of the abdominal aorta. The patient had a diverticular colostomy in the left lower quadrant and a colostomy site is functional and viable at this point in time. Extremities reveal edema in lower eczematous bilaterally and the patient has diminished pulses no cyanosis or clubbing. There is a deep tissue injury over the lateral aspect of the thigh probably related to forward a areas quite necrotic centrally and there is some surrounding erythema in the areas measuring 10 CM IN SIZE. Pelvis :there is an open wound in the right inguinal area just at the inguinal crease between the pelvis and the right thigh and this is extending into the perineum where there is a open wound surrounded by pelvic bones and the extension of the open wound to the retroperitoneum is suspected. It may be also some tract formation due to underlying infection. The central area shows tissue which is necrotic and purulent and foul-smelling material is covering the pelvic wound and this is extending also into the gluteus muscle on the right. Neurologically, the patient is moving all 4 extremities, and the neurologic exam is nonfocal Results - Laboratory Findings CBC and BMP: 08/18/21 13:03 08/18/21 13:03 PT/INR, D-dimer PT 12.6 sec (9.0-12.0) H 08/18/21 13:03 INR 1.2 (<1.2) H 08/18/21 13:03 Abnormal lab findings: Abnormal Labs 08/18/21 08/18/21 08/18/21 13:03 13:03 13:03 WBC 36.3 H RBC 3.31 L Hgb 10.1 L Hct 31.8 L Neutrophils # (Manual) 34.80 H Lymphocytes # (Manual) 0.73 L PT 12.6 H INR 1.2 H APTT 30.4 H BUN 57 H Calcium 8.3 L AST 160 H ALT 88 H Alkaline Phosphatase 204 H Total Protein 4.9 L Albumin 1.9 L - Diagnostic Findings Chest x-ray: image reviewed Assessment and Plan Plan: 1 septic shock, currently on IV fluids and pressors and the patient was started on examination antibiotic with Zosyn and vancomycin 2 multilevel lobar pneumonia worse in the right upper lobe 3 acute hypoxic respiratory failure currently on 14 L of O2 nasal cannula 4 peritoneal open wound/infected, started off as her anal area extending into the perineum, vaginal wall and possibly the right thigh. This patient has clearly a anogenital open wound with possibility some tract formation. This has been a chronic problem related to her previous squamous cell carcinoma of the anus and the patient undergone previous biopsies and tumor resection confirming diagnosis. This is a large open area creating a large cavity and is surrounded by pelvic bone structures and there are clear signs of pelvic abscess/wound infection and possibly some perineal wound sinus tract. 5 squamous cell carcinoma of the anal canal with previous renal with chemoradiation therapy 6 acute leukocytosis secondary to above 7 altered mentation secondary to above 8 cachexia malnourishment with a body mass index of 20.8 9 history of congestion heart failure 10 COPD 11 long-term anticoagulation, exact reason for that examination is not clear to me at this point in time I will hold anticoagulation for now Plan This is a patient with IV fluids and the patient will be given normal saline at the rate of 150 mL an hour Cover the patient with broad-spectrum antibiotics including Zosyn and vancomycin Obtain blood cultures Obtain wound cultures Uterus pressors for now and the patient was given a triple lumen catheter in the emergency department and the patient is currently on pressors with norepinephrine Obtain CAT scan of the chest abdomen and pelvis Obtain records regarding her oncologic history consult tobacco checkout clerk Gen. surgery for debridement and surgical evaluation of this perineal/pelvic abscess/wound Consult oncology Consult infectious disease Titrate oxygen. Limited saturation above 90%, currently on 14 L to maintain this in this patient to high flow oxygen, Airvo 2-D echocardiogram in a.m. Assessment the patient ICU. Patient is extremely sick and debilitated Very poor prognosis obviously a changing CODE STATUS is advised.
--- NOTE | 2021-08-18 18:19 | US ---
EXAMINATION TYPE: US venous doppler duplex [facility] DATE OF EXAM: 08/18/2021 6:06 PM COMPARISON: US 2021 CLINICAL HISTORY: swelling, ?? DVT. Swelling. Patient on eliquis. Hx DVT. SIDE PERFORMED: Bilateral TECHNIQUE: The lower extremity deep venous system is examined utilizing real time linear array sonog alexandrea with graded compression, doppler sonography and color-flow sonography. VESSELS IMAGED: Common Femoral Vein- Left only Deep Femoral Vein Greater Saphenous Vein * Femoral Vein Popliteal Vein Small Saphenous Vein * Proximal Calf Veins (* superficial vessels) Right Leg: Unable to visualize CFV due to IV and bandages. Echoes and color defect seen within femoral vein and deep femoral vein. Duplicate popliteal vein note d. Little to no color flow seen in one of two popliteal veins. One popliteal vein does not compress . Echoes also seen in noncompressible GSV at upper thigh. Left Leg: Echoes seen within all veins imaged. Vessels do not appear to compress and show no color f low or color defect. Hypoechoic area seen within left groin: 1.6 x 1.2 x 0.7 cm. IMPRESSION: There is demonstrated bilateral acute deep vein thrombosis. This appears worse on the le ft side.
[2021-08-18] MEDS ORDERED: SUCCINYLCHOLINE CHLORIDE VIAL 200 MG/10 ML VIAL IV ONE (18:42)
--- NOTE | 2021-08-18 18:44 | CT ---
EXAMINATION TYPE: CT ChestAbdPelvis wo con DATE OF EXAM: 08/18/2021 COMPARISON: PET CT scan 04/15/2021 HISTORY: sepsis CT DLP: 469.7 mGycm Automated exposure control for dose reduction was used. Images obtained from the thoracic inlet to the floor the pelvis without contrast. There is large area of cavitating consolidation in the right upper lobe. There is patchy airspace inf iltrates in the midlung corea. There is moderate consolidation left posterior lung base. There is le ft pleural effusion. Stomach is dilated with air and fluid. Liver appears intact. There is no evidenc e of pancreatic mass. The bile ducts are not dilated. There is no sign of adrenal mass. Kidneys have normal size. No hydronephrosis. No evidence of pneumoperitoneum. Bladder distends smoothly. The thoracic and lumbar spine appear intact. No compression fracture. The bony pelvis is intact. Ther e is mild lumbar levoscoliosis. The bony pelvis appears intact. There is irregular thickening of the rectum and anus. There is possible rectal prolapse. There is small amount of free fluid in the pelvis . IMPRESSION: Large cavitating infiltrate right upper lobe. Extensive airspace infiltrate left lower lobe. Patchy b ilateral pulmonary airspace infiltrates. Small amount of free fluid in the pelvis. There is evidence of large and small bowel ileus. Mechanica l bowel obstruction not entirely excluded. Deformity of the rectum and anus consistent with tumor and possible prolapse. Dilated bowel is a change compared to old exam. Extensive pulmonary infiltrates o r change compared to old exam.
[2021-08-18] MEDS ORDERED: LORazepam 2 MG/ML INJ IV PRN (18:50)
--- NOTE | 2021-08-18 18:50 | ED ---
Medical Decision Making - Medical Decision Making Called to see patient by nursing staff. Patient with agonal respirations. Family is present. Family still unclear on CODE STATUS. Patient was immediately intubated. There was some emesis in the posterior pharynx, this was suctioned out, otherwise no consultations. Dr. Blackmon paged to update. - Lab Data Result diagrams: 08/18/21 13:03 08/18/21 13:03 Disposition Clinical Impression: Septic shock, Wound of gluteal cleft, Pneumonia, Hypotension, Open wound of anus Disposition: ADMITTED IP TO THIS HOSP Condition: Critical Is patient prescribed a controlled substance at d/c from ED?: No Procedures - Intubation Paralytic: Succinylcholine Mg Given: 80 Laryngoscope: Rodriguez Size: 3 ET Tube Size: 7.5 Tube Placement Confirmation: visualized tube passing through cords, equal breath sounds bilaterally, confirmation by capnometry Patient Tolerated Procedure: well Additional Comments: There was emesis in the posterior pharynx that was suctioned prior to placing endotracheal tube. - Sepsis Sepsis Focused Exam #1 Time Sepsis Criteria Met: 12:22
[2021-08-18] MEDS: HEPARIN SODIUM,PORCINE/PF 5,000 UNIT/0.5 ML SYRINGE SQ SCH (18:52)
[2021-08-18] MEDS: PIPERACILLIN-TAZOBACTAM 3.375 GM in SODIUM CHLORIDE 0.9% 100 ML IVPB SCH (19:19)
--- NOTE | 2021-08-18 19:41 | XR ---
EXAMINATION TYPE: XR chest 1V portable DATE OF EXAM: 08/18/2021 COMPARISON: Today HISTORY: Tube placement TECHNIQUE: Single view FINDINGS: there is nasogastric tube which is in the fundus of the stomach near the gastroesophageal junction. Endotracheal tube is 4.5 cm from the renetta. There is extensive airspace consolidation right upper lo be and left lower lobe. Heart size is normal. IMPRESSION: Extensive pneumonia without change compared to exam 5 hours ago.
[2021-08-18] MEDS ORDERED: DEXTROSE 50% SYRINGE 50 ML IVP ONE (20:24)
[2021-08-18 20:32] LABS: ABG Base Excess -6.3 mmol/L; ABG HCO3 24 mmol/L (21-25); ABG Oxygen Saturation 95.2 % (94-97); ABG PO2 110 mmHg (83-108); ABG TCO2 26 mmol/L (19-24); Allen Test Performed? Yes
[2021-08-18 20:41] LABS: ABG PH 7.09 (7.35-7.45)
[2021-08-18 20:42] LABS: Glucose,Whole Blood 128 mg/dL (75-99)
[2021-08-18 20:42] LABS: Glucose,Whole Blood 53 mg/dL (75-99)
[2021-08-18 20:42] LABS: ABG PCO2 78 mmHg (35-45)
[2021-08-18 21:03] LABS: Glucose,Whole Blood 106 mg/dL (75-99)
[2021-08-18] MEDS ORDERED: SODIUM CHLORIDE 0.9% 2,000 ML IV ONE (21:16)
[2021-08-18] MEDS ORDERED: SODIUM BICARB 8.4% 50 ML SYR (1 MEQ/ML) IV STA (21:28)
[2021-08-18] MEDS: SODIUM BICARB 8.4% 50 ML SYR (1 MEQ/ML) IV STA (21:58)
[2021-08-18] MEDS: SODIUM CHLORIDE 0.9% 50 ML with VASOPRESSIN 20 UNIT IVPB SCH ×2 (22:01)
[2021-08-18] MEDS: CHLORHEXIDINE GLUCONATE 15 ML CUP MUCOUS MEM SCH (22:05)
[2021-08-18 22:10] LABS: Glucose,Whole Blood 115 mg/dL (75-99)
[2021-08-18 23:12] LABS: Amorphous Sediment,Urine Rare /hpf; Appearance,Urine Cloudy (Clear); Bilirubin,Urine Negative (Negative); Blood,Urine Trace (Negative); Color,Urine Yellow; Glucose,Urine (UA) Negative (Negative); Ketones,Urine Negative (Negative); Leukocyte Esterase,Urine Negative (Negative); Mucus,Urine Rare /hpf; Nitrite,Urine Negative (Negative); PH, Urine 5.5 (5.0-8.0); Protein,Urine 1+ (Negative); RBC,Urine 2 /hpf (0-5); Specific Gravity,Urine 1.022 (1.001-1.035); Squamous Epithelial Cell,Urine 1 /hpf (0-4); Urobilinogen,Urine <2.0 mg/dL (<2.0); WBC,Urine 4 /hpf (0-5)
[2021-08-19] MEDS ORDERED: VANCOMYCIN 1,000 MG in SODIUM CHLORIDE 0.9% 250 ML IVPB SCH ×2
[2021-08-19] MEDS: PIPERACILLIN-TAZOBACTAM 3.375 GM in SODIUM CHLORIDE 0.9% 100 ML IVPB SCH ×3 (00:30→17:11)
[2021-08-19] MEDS: HEPARIN SODIUM,PORCINE/PF 5,000 UNIT/0.5 ML SYRINGE SQ SCH ×2 (00:30→08:20)
[2021-08-19] MEDS: SODIUM CHLORIDE 0.9% 50 ML with VASOPRESSIN 20 UNIT IVPB SCH ×4 (05:40→17:19)
[2021-08-19] MEDS: SODIUM CHLORIDE 0.9% 1,000 ML IV SCH ×2 (05:41→13:20)
--- NOTE | 2021-08-19 06:08 | XR ---
EXAMINATION TYPE: XR chest 1V portable DATE OF EXAM: 08/19/2021 CLINICAL HISTORY: Difficulty breathing progress study. TECHNIQUE: Single AP portable semiupright view of the chest is obtained. COMPARISON: Chest x-ray and CT from one day earlier and older x-rays FINDINGS: Stable endotracheal tube and orogastric tubes. Mild underlying emphysematous change is redemonstrated. Persistent right upper lung pneumonic consol idation. Worsening left mid to lower lung airspace opacities. Developing right mid to lower lung opac ities. Cardiac silhouette size stable within normal limits. Osseous structures are intact. IMPRESSION: Stable right upper lung masslike pneumonic consolidation. Worsening left mid to lower mary g pneumonic consolidations. Developing right mid to lower lung pneumonic infiltrates. Overall continu ed progression.
[2021-08-19 06:19] LABS: ABG Base Excess -4.6 mmol/L; ABG HCO3 24 mmol/L (21-25); ABG Oxygen Saturation 96.7 % (94-97); ABG PCO2 69 mmHg (35-45); ABG PO2 108 mmHg (83-108); ABG TCO2 26 mmol/L (19-24); Allen Test Performed? Yes
[2021-08-19 06:21] LABS: ABG PH 7.15 (7.35-7.45)
[2021-08-19] MEDS: IPRATROPIUM-ALBUTEROL 3 ML NEB INHALATION SCH ×4 (07:17→21:39)
[2021-08-19] MEDS ORDERED: HEPARIN SODIUM 1,000 UN/ML (10ML VL) IV PRN (08:13)
[2021-08-19] MEDS ORDERED: HEPARIN SODIUM 1,000 UN/ML (10ML VL) IV ONE (08:13)
[2021-08-19] MEDS ORDERED: HEPARIN SOD,PORK IN 0.45% NACL 25,000 UNIT in 0.45% NACL 1 250ML.BAG IV SCH (08:15)
[2021-08-19] MEDS: CHLORHEXIDINE GLUCONATE 15 ML CUP MUCOUS MEM SCH ×2 (08:36→20:15)
[2021-08-19 08:46] LABS: ALT 138 U/L (4-34); AST 269 U/L (14-36); African American GFR (CKD) 89 (>60 ml/min/1.73 sqM); Albumin 1.7 g/dL (3.5-5.0); Alkaline Phosphatase 195 U/L (38-126); Anion Gap 8 mmol/L; Blood Urea Nitrogen 52 mg/dL (7-17); Calcium 7.5 mg/dL (8.4-10.2); Carbon Dioxide 22 mmol/L (22-30); Chloride 115 mmol/L (98-107); Lipase <10 U/L (23-300); Magnesium 1.9 mg/dL (1.6-2.3); Non-African American GFR(CKD) 77 (>60 ml/min/1.73 sqM); Phosphorus 6.8 mg/dL (2.5-4.5); Potassium 4.6 mmol/L (3.5-5.1); Sodium 145 mmol/L (137-145); Total Bilirubin 0.7 mg/dL (0.2-1.3); Total Protein 4.4 g/dL (6.3-8.2)
[2021-08-19 08:47] LABS: Glucose 43 mg/dL (74-99)
[2021-08-19] MEDS ORDERED: DEXTROSE 50% SYRINGE 50 ML IVP ONE (08:54)
[2021-08-19] MEDS ORDERED: DEXTROSE 50% SYRINGE 50 ML IVP STA ×2 (08:56→13:14)
[2021-08-19 09:00] LABS: Glucose,Whole Blood 40 mg/dL (75-99)
[2021-08-19 09:00] LABS: INR 1.4 (<1.2); Prothrombin Time 14.6 sec (9.0-12.0)
[2021-08-19 09:13] LABS: HCT 41.3 % (34.0-46.0); HGB 12.1 gm/dL (11.4-16.0); Hypochromasia Marked; MCH 30.9 pg (25.0-35.0); MCHC 29.2 g/dL (31.0-37.0); Macrocytosis Moderate; Mean Platelet Volume 9.3; Platelet Count 351 k/uL (150-450); RBC 3.91 m/uL (3.80-5.40); RDW 15.1 % (11.5-15.5); WBC 30.7 k/uL (3.8-10.6)
[2021-08-19 09:14] LABS: MCV 105.6 fL (80.0-100.0)
[2021-08-19 09:20] LABS: Glucose,Whole Blood 114 mg/dL (75-99)
[2021-08-19] MEDS: NOREPINEPHRINE 32 MG in SODIUM CHLORIDE 0.9% 218 ML IV SCH (09:23)
[2021-08-19 09:38] LABS: Band Neutrophils % 18 %; Lymphocytes # (M) 0.61 k/uL (1.0-4.8); Metamyelocytes # (M) 1.23 k/uL (0); Metamyelocytes % 4 %; Monocytes # (M) 1.23 k/uL (0-1.0); Neutrophils % (M) 73 %; Nucleated Red Blood Cells 0 /100 WBC (0-0); Total Cells Counted 200
[2021-08-19 09:42] LABS: Toxic Vacuolation Present
[2021-08-19 09:47] VITALS: BMI 24.3
--- NOTE | 2021-08-19 11:42 | CA ---
Transthoracic Echo Report Name: Maru Murillo Age: 51 Gender: F : 1970 Exam Date: 08/19/2021 08:12 Exam Location: [facility] Ht (in): 61 Wt (lb): 128 Ordering Physician: Reji Blackmon MD Attending/Referring Phys: Luster Repairer Leana Bird RDCS Procedure CPT: Indications: Hypotension Cardiac Hx: Technical Quality: Fair Contrast 1: Total Dose (mL): Contrast 2: Total Dose (mL): MEASUREMENTS (Male / Female) Normal Values 2D ECHO LV Diastolic Diameter PLAX 2.7 cm 4.2 - 5.9 / 3.9 - 5.3 cm LV Systolic Diameter PLAX 1.5 cm IVS Diastolic Thickness 1.3 cm 0.6 - 1.0 / 0.6 - 0.9 cm LVPW Diastolic Thickness 1.2 cm 0.6 - 1.0 / 0.6 - 0.9 cm LV Relative Wall Thickness 0.9 FINDINGS Left Ventricle Limited study. Hyperdynamic left ventricular systolic function. Left ventricular ejection fraction is estimated at 60-65 %. Mild LVH. Right Ventricle Right Atrium Left Atrium Mitral Valve Aortic Valve Tricuspid Valve Pulmonic Valve Pericardium Small pericardial effusion. Aorta CONCLUSIONS Normal LV size with vigorous contractility, small pericardial effusion Previewed by: Dr. Emilia Castro MD (Electronically Signed) Final Date: 19 August 2021 11:41
[2021-08-19 13:15] LABS: Glucose,Whole Blood 65 mg/dL (75-99)
--- NOTE | 2021-08-19 14:09 | P.CONS ---
History of Present Illness - Reason for Consult Consult date: 08/18/21 Oncologic Care Requesting physician: Johan Morel - History of Present Illness Anal Cancer Follow Up Visit HPI : This is a very nice lady who presented with rectal pain,started in the summer of 2019,progressivley worse,then started to have rectal bleeding. On 07/02/2020,she had CT scan of abdomen/pelvis which revealed soft tissue lesion measured 3 cm in perineum. 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 CT scan of chest on 08/27/2020 revealed no evidence of disease. She was scheduled for pelvic MRI but she could not go through it due to anxiety. On 09/12/2020,PET scan revealed suspicious uptake in 6 cm anal mass,no suspic ious adenopathies. On 09/22/20 she started mitomycin/xeloda with XRT and completed on 11/06/2020. On 12/15/2020,CT scan of chest/abdomen/pelvis were negative. She declined ECOG Acrin trial She had a biopsy of the anal lesion in March/2021 which revealed peristent disease. Repeat PET scan on 04/15/2021 revealed persistent active neoplasm at level of rectum and anus identified. New pelvic and right groin adenopathy noted. She met with DR Recinos at [facility] 05/20/2021 - She underwent a diverticular colostomy On 06/17/2021,she started opdivo Last seen in June, PET scan was scheduled 06 August however unable to have. The rectal wound she had been struggling with had progressively more painful, worsening purulent and foul-smelling drainage. Despite multiple narcotics and increased medications she has been unable to sit on this area, lay down comfortably. She has become more cachectic, malnourished over the past few months. She presented with worsening short of breath. On arrival, she presented in a picture of sepsis: She was hypotensive 64/33 and she was tachycardic and she wa s afebrile. She was originally seen in Trauma in ER. She was hypoxic and in respiratory distress 81% on room air oxygen. Chest x-ray showed a new right upper lobe masslike consolidation. CBC abnormal with WBC 36.3 COVID 19 negative and influenza A and B screen were negative. Central line catheter was established in the emergency department Full paulson cultures blood, sputum drawn and pending. Broad spectrum Abx and IV fluids initiated in ER. Also required pressors. Family at bedside. . Past Medical History Past Medical History: Cancer, Heart Failure, COPD Additional Past Medical History / Comment(s): "Bad headaches", constipation, sqamous cell skin cancer rectal area -receiving chemo. History of Any Multi-Drug Resistant Organisms: None Reported Past Surgical History: Cholecystectomy, Tonsillectomy, Uterine Ablation Additional Past Surgical History / Comment(s): Hemorrhoidectomy. Anal Biopsy. Past Anesthesia/Blood Transfusion Reactions: No Reported Reaction, Motion Sickness Past Psychological History: Anxiety Smoking Status: Current every day smoker Past Alcohol Use History: Rare Past Drug Use History: Marijuana - Past Family History Father Family Medical History: Cancer Additional Family Medical History / Comment(s): Lung cancer. Medications and Allergies Home Medications Medication Instructions Recorded Confirmed Type Albuterol Inhaler [Ventolin Hfa 2 puff INHALATION RT-QID PRN 07/02/20 08/18/21 History Inhaler] Albuterol Nebulized [Ventolin 2.5 mg INHALATION RT-QID PRN 10/28/20 08/18/21 History Nebulized] Apixaban [Eliquis] 5 mg PO Q12H 08/18/21 08/18/21 History Docusate [Colace] 100 mg PO BID 08/18/21 08/18/21 History Gabapentin [Neurontin] 300 mg PO TID 08/18/21 08/18/21 History Morphine Sulfate ER [Ms Contin] 15 mg PO Q8H 08/18/21 08/18/21 History Morphine Sulfate ER [Ms Contin] 30 mg PO Q8H 08/18/21 08/18/21 History Morphine Sulfate [Morphine Sulfate 2 - 4 mg PO Q3H PRN 08/18/21 08/18/21 History 10 MG/5 ML] Allergies Allergy/AdvReac Type Severity Reaction Status Date / Time codeine AdvReac Nausea & Verified 08/18/21 13:34 [From Tylenol-Codeine #3] Vomiting Physical Exam Vitals: Vital Signs Temp Pulse Resp BP Pulse Ox 08/18/21 12:53 104 H 20 69/40 87 L 08/18/21 12:35 100 20 64/33 88 L 08/18/21 12:19 97.9 F 104 H 20 72/36 81 L Intake and Output 08/17/21 08/18/21 08/18/21 22:59 06:59 14:59 Intake Total 0.019 Balance 0.019 Intake: Intake, IV Titration 0.019 Amount Norepinephrine 32 mg In 0.019 Sodium Chloride 0.9% 218 ml @ 0.05 MCG/KG/MIN 1. 169 mls/hr IV .Q24H [facility] Rx#:[id number] Other: Weight 49.895 kg Ventilatory Cachetic Irr Increase effort Different areas of healing eccymosis and wounds Results CBC & Chem 7: 08/19/21 08:20 08/19/21 08:20 Chest x-ray: report reviewed Assessment and Plan (1) Squamous cell cancer, anus Current Visit: Yes Status: Acute Code(s): C21.0 - MALIGNANT NEOPLASM OF ANUS, UNSPECIFIED SNOMED Code(s): 902723696 (2) Open wound of anus Current Visit: Yes Status: Acute Code(s): S31.839A - UNSPECIFIED OPEN WOUND OF ANUS, INITIAL ENCOUNTER SNOMED Code(s): 26433177340562343 (3) Septic shock Current Visit: Yes Status: Acute Code(s): A41.9 - SEPSIS, UNSPECIFIED ORGANISM; R65.21 - SEVERE SEPSIS WITH SEPTIC SHOCK SNOMED Code(s): 61816107 Plan: She is receiving Immune therapy in office and will assess for immune related effects. Monitor for DIC and acute sepsis complications COntinue care per ICU Discussed with family in ER. Plan to move to ICU when bed available. Did discuss with Pulmonary
[2021-08-19] MEDS ORDERED: DEXTROSE 10% IN WATER 1,000 ML with SODIUM CHLORIDE 4MEQ/ML VIAL 153.8 MEQ IV SCH (14:15)
--- NOTE | 2021-08-19 14:15 | P.PN ---
Subjective Progress Note Date: 08/19/21 Principal diagnosis: Septic Shock ICU care, seen and evaluated this am Objective - Vital Signs Vital signs: Vital Signs Temp 101.3 F H 08/19/21 08:00 Pulse 140 H 08/19/21 11:15 Resp 30 H 08/19/21 11:15 BP 100/55 08/19/21 11:15 Pulse Ox 95 08/19/21 11:00 Intake & Output 08/18/21 08/19/21 08/19/21 18:59 06:59 18:59 Intake Total 4.300 1775.744 880.449 Output Total 500 185 Balance 4.300 1275.744 695.449 Weight 49.895 kg 58.4 kg 60.4 kg Intake: IV 700 Piperacillin-Tazobactam 3 100 .375 gm In Sodium Chloride 0.9% 100 ml @ 25 mls/hr IVPB Q8HR [facility] Rx# :[id number] Sodium Chloride 0.9% 1, 600 000 ml @ 150 mls/hr IV . Q6H40M [facility] Rx#:[id number] Intake, IV Titration 4.300 1775.744 180.449 Amount Norepinephrine 32 mg In 4.300 164.076 28.370 Sodium Chloride 0.9% 218 ml @ 0.05 MCG/KG/MIN 1. 169 mls/hr IV .Q24H [facility] Rx#:[id number] Sodium Chloride 0.9% 1, 1300 130 000 ml @ 150 mls/hr IV . Q6H40M [facility] Rx#:[id number] Vancomycin 1,000 mg In 250 Sodium Chloride 0.9% 250 ml @ 125 mls/hr IVPB Q12H [facility] Rx#:[id number] propofoL 1,000 mg In 61.668 22.079 Empty Bag 1 bag @ 5 MCG/ KG/MIN 1.497 mls/hr IV . Q24H [facility] Rx#:[id number] Output: Gastric Drainage 50 Urine 350 135 Stool 150 - Exam Ventilatory Cachetic Irr Increase effort Different areas of healing eccymosis and wounds - Labs CBC & Chem 7: 08/19/21 08:20 08/19/21 08:20 Labs: Abnormal Lab Results - Last 24 Hours (Table) 08/18/21 08/18/21 08/18/21 Range/Units 12:59 13:03 19:46 WBC (3.8-10.6) k/uL MCV (80.0-100.0) fL MCHC (31.0-37.0) g/dL Neutrophils # (Manual) 34.80 H (1.3-7.7) k/uL Lymphocytes # (Manual) 0.73 L (1.0-4.8) k/uL Monocytes # (Manual) (0-1.0) k/uL Metamyelocytes # (Man) (0) k/uL PT (9.0-12.0) sec INR (<1.2) ABG pH 7.09 L* (7.35-7.45) ABG pCO2 78 H* (35-45) mmHg ABG pO2 110 H (83-108) mmHg ABG Total CO2 26 H (19-24) mmol/L Chloride (98-107) mmol/L BUN (7-17) mg/dL Glucose (74-99) mg/dL POC Glucose (mg/dL) (75-99) mg/dL Calcium (8.4-10.2) mg/dL Phosphorus (2.5-4.5) mg/dL AST (14-36) U/L ALT (4-34) U/L Alkaline Phosphatase (38-126) U/L Total Protein (6.3-8.2) g/dL Albumin (3.5-5.0) g/dL Lipase (23-300) U/L Procalcitonin 2.39 H (0.02-0.09) ng/mL Urine Appearance (Clear) Urine Protein (Negative) Urine Blood (Negative) Amorphous Sediment (None) /hpf Urine Mucus (None) /hpf 08/18/21 08/18/21 08/18/21 Range/Units 20:23 20:41 21:01 WBC (3.8-10.6) k/uL MCV (80.0-100.0) fL MCHC (31.0-37.0) g/dL Neutrophils # (Manual) (1.3-7.7) k/uL Lymphocytes # (Manual) (1.0-4.8) k/uL Monocytes # (Manual) (0-1.0) k/uL Metamyelocytes # (Man) (0) k/uL PT (9.0-12.0) sec INR (<1.2) ABG pH (7.35-7.45) ABG pCO2 (35-45) mmHg ABG pO2 (83-108) mmHg ABG Total CO2 (19-24) mmol/L Chloride (98-107) mmol/L BUN (7-17) mg/dL Glucose (74-99) mg/dL POC Glucose (mg/dL) 53 L 128 H 106 H (75-99) mg/dL Calcium (8.4-10.2) mg/dL Phosphorus (2.5-4.5) mg/dL AST (14-36) U/L ALT (4-34) U/L Alkaline Phosphatase (38-126) U/L Total Protein (6.3-8.2) g/dL Albumin (3.5-5.0) g/dL Lipase (23-300) U/L Procalcitonin (0.02-0.09) ng/mL Urine Appearance (Clear) Urine Protein (Negative) Urine Blood (Negative) Amorphous Sediment (None) /hpf Urine Mucus (None) /hpf 08/18/21 08/18/21 08/19/21 Range/Units 22:08 23:00 06:11 WBC (3.8-10.6) k/uL MCV (80.0-100.0) fL MCHC (31.0-37.0) g/dL Neutrophils # (Manual) (1.3-7.7) k/uL Lymphocytes # (Manual) (1.0-4.8) k/uL Monocytes # (Manual) (0-1.0) k/uL Metamyelocytes # (Man) (0) k/uL PT (9.0-12.0) sec INR (<1.2) ABG pH 7.15 L* (7.35-7.45) ABG pCO2 69 H (35-45) mmHg ABG pO2 (83-108) mmHg ABG Total CO2 26 H (19-24) mmol/L Chloride (98-107) mmol/L BUN (7-17) mg/dL Glucose (74-99) mg/dL POC Glucose (mg/dL) 115 H (75-99) mg/dL Calcium (8.4-10.2) mg/dL Phosphorus (2.5-4.5) mg/dL AST (14-36) U/L ALT (4-34) U/L Alkaline Phosphatase (38-126) U/L Total Protein (6.3-8.2) g/dL Albumin (3.5-5.0) g/dL Lipase (23-300) U/L Procalcitonin (0.02-0.09) ng/mL Urine Appearance Cloudy H (Clear) Urine Protein 1+ H (Negative) Urine Blood Trace H (Negative) Amorphous Sediment Rare H (None) /hpf Urine Mucus Rare H (None) /hpf 08/19/21 08/19/21 08/19/21 Range/Units 08:20 08:20 08:20 WBC 30.7 H (3.8-10.6) k/uL MCV 105.6 H D (80.0-100.0) fL MCHC 29.2 L (31.0-37.0) g/dL Neutrophils # (Manual) 27.90 H (1.3-7.7) k/uL Lymphocytes # (Manual) 0.61 L (1.0-4.8) k/uL Monocytes # (Manual) 1.23 H (0-1.0) k/uL Metamyelocytes # (Man) 1.23 H (0) k/uL PT 14.6 H (9.0-12.0) sec INR 1.4 H (<1.2) ABG pH (7.35-7.45) ABG pCO2 (35-45) mmHg ABG pO2 (83-108) mmHg ABG Total CO2 (19-24) mmol/L Chloride 115 H (98-107) mmol/L BUN 52 H (7-17) mg/dL Glucose 43 L* (74-99) mg/dL POC Glucose (mg/dL) (75-99) mg/dL Calcium 7.5 L (8.4-10.2) mg/dL Phosphorus 6.8 H (2.5-4.5) mg/dL AST 269 H (14-36) U/L ALT 138 H (4-34) U/L Alkaline Phosphatase 195 H (38-126) U/L Total Protein 4.4 L (6.3-8.2) g/dL Albumin 1.7 L (3.5-5.0) g/dL Lipase <10 L (23-300) U/L Procalcitonin (0.02-0.09) ng/mL Urine Appearance (Clear) Urine Protein (Negative) Urine Blood (Negative) Amorphous Sediment (None) /hpf Urine Mucus (None) /hpf 08/19/21 08/19/21 08/19/21 Range/Units 08:58 09:18 13:13 WBC (3.8-10.6) k/uL MCV (80.0-100.0) fL MCHC (31.0-37.0) g/dL Neutrophils # (Manual) (1.3-7.7) k/uL Lymphocytes # (Manual) (1.0-4.8) k/uL Monocytes # (Manual) (0-1.0) k/uL Metamyelocytes # (Man) (0) k/uL PT (9.0-12.0) sec INR (<1.2) ABG pH (7.35-7.45) ABG pCO2 (35-45) mmHg ABG pO2 (83-108) mmHg ABG Total CO2 (19-24) mmol/L Chloride (98-107) mmol/L BUN (7-17) mg/dL Glucose (74-99) mg/dL POC Glucose (mg/dL) 40 L 114 H 65 L (75-99) mg/dL Calcium (8.4-10.2) mg/dL Phosphorus (2.5-4.5) mg/dL AST (14-36) U/L ALT (4-34) U/L Alkaline Phosphatase (38-126) U/L Total Protein (6.3-8.2) g/dL Albumin (3.5-5.0) g/dL Lipase (23-300) U/L Procalcitonin (0.02-0.09) ng/mL Urine Appearance (Clear) Urine Protein (Negative) Urine Blood (Negative) Amorphous Sediment (None) /hpf Urine Mucus (None) /hpf Microbiology - Last 24 Hours (Table) 08/18/21 13:00 Gram Stain - Preliminary Tissue - Other Wound Culture - Preliminary 08/18/21 19:00 Gram Stain - Preliminary Sputum Sputum Culture - Preliminary 08/18/21 18:56 Anaerobic Culture - Preliminary Anus 08/18/21 18:56 Wound Culture - Preliminary Rectum Assessment and Plan (1) Squamous cell cancer, anus Current Visit: Yes Status: Acute Code(s): C21.0 - MALIGNANT NEOPLASM OF ANUS, UNSPECIFIED SNOMED Code(s): 004873599 (2) Open wound of anus Current Visit: Yes Status: Acute Code(s): S31.839A - UNSPECIFIED OPEN WOUND OF ANUS, INITIAL ENCOUNTER SNOMED Code(s): 91229880223731008 (3) Septic shock Current Visit: Yes Status: Acute Code(s): A41.9 - SEPSIS, UNSPECIFIED ORGANISM; R65.21 - SEVERE SEPSIS WITH SEPTIC SHOCK SNOMED Code(s): 44522857 (4) Elevated liver function tests Narrative/Plan: monitor coagulation and monitor for hepatitis induced from immune therapy Current Visit: Yes Status: Acute Code(s): R79.89 - OTHER SPECIFIED ABNORMAL FINDINGS OF BLOOD CHEMISTRY SNOMED Code(s): 353857955 Plan: She is receiving Immune therapy in office and will assess for immune related effects. Monitor for DIC and acute sepsis complications COntinue care per ICU Reviewed CT scan Chest/Abdomen/Pelvis - Ileus. Cavitating lung lesion. Blood cultures! Increased LFTs - Monitor for DIC CBC, CMP Coags in am Dr. Narvaez: I have completed the full history and physical and developed the impression and plan, agree with above dictation. Dictated as a scribe.
[2021-08-19] MEDS ORDERED: DEXTROSE 10% IN WATER 1,000 ML with SODIUM CHLORIDE 2.5MEQ/ML VIAL 153.8 MEQ IV SCH (14:30)
--- NOTE | 2021-08-19 14:41 | P.GSCN ---
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 Patient has a history of diverting colostomy to prevent contamination to the perineal area for her ongoing cancer. Patient presented to the emergency room with complaints of weakness, not feeling well and hypotension. Patient had not been eating and drinking well at home. She's found to be septic. Also had evidence of pneumonia and open large peritoneal wound. She's currently in the ICU and intubated. She is requiring Levophed and vasopressin. She is on IV heparin for bilateral DVT. Nursing staff reported drainage from the wound. She also has a positive blood culture from [facility]iel[facility]er with gram-negative rods. She's been febrile with a temp of 101.3, tachycardic, hypotensive and has leukocytosis. PAST MEDICAL HISTORY: See list. PAST SURGICAL HISTORY: See list. MEDICATIONS: See list. ALLERGIES: See list. SOCIAL HISTORY: No illicit drug use. REVIEW OF SYSTEMS: Unable to obtain. Patient is intubated and sedated PHYSICAL EXAM: VITAL SIGNS: Reviewed GENERAL: Cachectic and malnourished HEENT: No sclera icterus. Extraocular movements grossly intact. Moist buccal mucosa. Head is atraumatic, normocephalic. No nasal drainage. ABDOMEN: Soft. Nondistended. Patient has ostomy. Bag is currently empty. Stoma is pink. NEUROLOGIC: Intubated and sedated Skin: Left hip 5 cm circular area of eschar tissue with surrounding erythema. Patient has open wound along the sacral and into the right gluteal area. Patient also has an open wound in the right inguinal crease. There is foul-sm elling odor. Areas of necrotic tissue. LABORATORY DATA: WBC 30.7 hemoglobin 12.1 platelets 351 INR 1.4 Sodium 145 potassium 4.6 creatinine 0.7 LFTs elevated IMAGING: Computed tomography scan chest, abdomen and pelvis large cavitating infiltrate right upper lobe. Extensive airspace infiltrate left lower lobe. Patchy bilateral pulmonary airspace infiltrates. Small amount of free fluid in the p anca. There is evidence of large and small bowel ileus. A chemical bowel obstruction not entirely excluded. Deformity of the rectum and anus consistent with tumor and possible prolapse. Dilated bowel is a change compared to old exam. ASSESSMENT: 1. Extensive Peritoneal wound that extends the perineum, vaginal, right thigh and sacral area. 2. History of squamous cell carcinoma of the anus status post chemoradiation treatment 3. Sepsis 4. Ileus 5. Acute hypoxic respiratory failure 6. Pneumonia PLAN: -No surgical intervention planned -Continue ICU management -Continue supportive care Physician Machine Presser note has been reviewed by physician. Signing provider agrees with the documented findings, assessment, and plan of care. Past Medical History Past Medical History: Cancer, Heart Failure, COPD Additional Past Medical History / Comment(s): "Bad headaches", constipation, sqamous cell skin cancer rectal area -receiving chemo. History of Any Multi-Drug Resistant Organisms: None Reported Past Surgical History: Cholecystectomy, Tonsillectomy, Uterine Ablation Additional Past Surgical History / Comment(s): Hemorrhoidectomy. Anal Biopsy. Past Anesthesia/Blood Transfusion Reactions: No Reported Reaction, Motion S ickness Past Psychological History: Anxiety Additional Psychological History / Comment(s): Claustrophobic. Smoking Status: Current every day smoker Past Alcohol Use History: Rare Additional Past Alcohol Use History / Comment(s): Smokes 1-2 PPD, has smoked since age 18. Past Drug Use History: Marijuana - Past Family History Father Family Medical History: Cancer Additional Family Medical History / Comment(s): Lung cancer. Medications and Allergies Home Medications Medication Instructions Recorded Confirmed Type Albuterol Inhaler [Ventolin Hfa 2 puff INHALATION RT-QID PRN 07/02/20 08/18/21 History Inhaler] Albuterol Nebulized [Ventolin 2.5 mg INHALATION RT-QID PRN 10/28/20 08/18/21 History Nebulized] Apixaban [Eliquis] 5 mg PO Q12H 08/18/21 08/18/21 History Docusate [Colace] 100 mg PO BID 08/18/21 08/18/21 History Gabapentin [Neurontin] 300 mg PO TID 08/18/21 08/18/21 History Morphine Sulfate ER [Ms Contin] 15 mg PO Q8H 08/18/21 08/18/21 History Morphine Sulfate ER [Ms Contin] 30 mg PO Q8H 08/18/21 08/18/21 History Morphine Sulfate [Morphine Sulfate 2 - 4 mg PO Q3H PRN 08/18/21 08/18/21 History 10 MG/5 ML] Allergies Allergy/AdvReac Type Severity Reaction Status Date / Time codeine AdvReac Nausea & Verified 08/18/21 13:34 [From Tylenol-Codeine #3] Vomiting Surgical - Exam Vital Signs Temp Pulse Resp BP Pulse Ox 97.9 F 104 H 20 72/36 81 L 08/18/21 12:19 08/18/21 12:19 08/18/21 12:19 08/18/21 12:19 08/18/21 12:19 Results - Labs 08/19/21 08:20 08/19/21 08:20 Abnormal Lab Results - Last 24 Hours (Table) 08/18/21 08/18/21 08/18/21 Range/Units 12:59 13:03 13:03 WBC 36.3 H (3.8-10.6) k/uL RBC 3.31 L (3.80-5.40) m/uL Hgb 10.1 L (11.4-16.0) gm/dL Hct 31.8 L (34.0-46.0) % MCV (80.0-100.0) fL MCHC (31.0-37.0) g/dL Neutrophils # (Manual) 34.80 H (1.3-7.7) k/uL Lymphocytes # (Manual) 0.73 L (1.0-4.8) k/uL Monocytes # (Manual) (0-1.0) k/uL Metamyelocytes # (Man) (0) k/uL PT 12.6 H (9.0-12.0) sec INR 1.2 H (<1.2) APTT 30.4 H (22.0-30.0) sec ABG pH (7.35-7.45) ABG pCO2 (35-45) mmHg ABG pO2 (83-108) mmHg ABG Total CO2 (19-24) mmol/L Chloride (98-107) mmol/L BUN (7-17) mg/dL Glucose (74-99) mg/dL POC Glucose (mg/dL) (75-99) mg/dL Calcium (8.4-10.2) mg/dL Phosphorus (2.5-4.5) mg/dL AST (14-36) U/L ALT (4-34) U/L Alkaline Phosphatase (38-126) U/L Total Protein (6.3-8.2) g/dL Albumin (3.5-5.0) g/dL Lipase (23-300) U/L Procalcitonin 2.39 H (0.02-0.09) ng/mL Urine Appearance (Clear) Urine Protein (Negative) Urine Blood (Negative) Amorphous Sediment (None) /hpf Urine Mucus (None) /hpf 08/18/21 08/18/21 08/18/21 Range/Units 13:03 19:46 20:23 WBC (3.8-10.6) k/uL RBC (3.80-5.40) m/uL Hgb (11.4-16.0) gm/dL Hct (34.0-46.0) % MCV (80.0-100.0) fL MCHC (31.0-37.0) g/dL Neutrophils # (Manual) (1.3-7.7) k/uL Lymphocytes # (Manual) (1.0-4.8) k/uL Monocytes # (Manual) (0-1.0) k/uL Metamyelocytes # (Man) (0) k/uL PT (9.0-12.0) sec INR (<1.2) APTT (22.0-30.0) sec ABG pH 7.09 L* (7.35-7.45) ABG pCO2 78 H* (35-45) mmHg ABG pO2 110 H (83-108) mmHg ABG Total CO2 26 H (19-24) mmol/L Chloride (98-107) mmol/L BUN 57 H (7-17) mg/dL Glucose (74-99) mg/dL POC Glucose (mg/dL) 53 L (75-99) mg/dL Calcium 8.3 L (8.4-10.2) mg/dL Phosphorus (2.5-4.5) mg/dL AST 160 H (14-36) U/L ALT 88 H (4-34) U/L Alkaline Phosphatase 204 H (38-126) U/L Total Protein 4.9 L (6.3-8.2) g/dL Albumin 1.9 L (3.5-5.0) g/dL Lipase (23-300) U/L Procalcitonin (0.02-0.09) ng/mL Urine Appearance (Clear) Urine Protein (Negative) Urine Blood (Negative) Amorphous Sediment (None) /hpf Urine Mucus (None) /hpf 08/18/21 08/18/21 08/18/21 Range/Units 20:41 21:01 22:08 WBC (3.8-10.6) k/uL RBC (3.80-5.40) m/uL Hgb (11.4-16.0) gm/dL Hct (34.0-46.0) % MCV (80.0-100.0) fL MCHC (31.0-37.0) g/dL Neutrophils # (Manual) (1.3-7.7) k/uL Lymphocytes # (Manual) (1.0-4.8) k/uL Monocytes # (Manual) (0-1.0) k/uL Metamyelocytes # (Man) (0) k/uL PT (9.0-12.0) sec INR (<1.2) APTT (22.0-30.0) sec ABG pH (7.35-7.45) ABG pCO2 (35-45) mmHg ABG pO2 (83-108) mmHg ABG Total CO2 (19-24) mmol/L Chloride (98-107) mmol/L BUN (7-17) mg/dL Glucose (74-99) mg/dL POC Glucose (mg/dL) 128 H 106 H 115 H (75-99) mg/dL Calcium (8.4-10.2) mg/dL Phosphorus (2.5-4.5) mg/dL AST (14-36) U/L ALT (4-34) U/L Alkaline Phosphatase (38-126) U/L Total Protein (6.3-8.2) g/dL Albumin (3.5-5.0) g/dL Lipase (23-300) U/L Procalcitonin (0.02-0.09) ng/mL Urine Appearance (Clear) Urine Protein (Negative) Urine Blood (Negative) Amorphous Sediment (None) /hpf Urine Mucus (None) /hpf 08/18/21 08/19/21 08/19/21 Range/Units 23:00 06:11 08:20 WBC (3.8-10.6) k/uL RBC (3.80-5.40) m/uL Hgb (11.4-16.0) gm/dL Hct (34.0-46.0) % MCV (80.0-100.0) fL MCHC (31.0-37.0) g/dL Neutrophils # (Manual) (1.3-7.7) k/uL Lymphocytes # (Manual) (1.0-4.8) k/uL Monocytes # (Manual) (0-1.0) k/uL Metamyelocytes # (Man) (0) k/uL PT (9.0-12.0) sec INR (<1.2) APTT (22.0-30.0) sec ABG pH 7.15 L* (7.35-7.45) ABG pCO2 69 H (35-45) mmHg ABG pO2 (83-108) mmHg ABG Total CO2 26 H (19-24) mmol/L Chloride 115 H (98-107) mmol/L BUN 52 H (7-17) mg/dL Glucose 43 L* (74-99) mg/dL POC Glucose (mg/dL) (75-99) mg/dL Calcium 7.5 L (8.4-10.2) mg/dL Phosphorus 6.8 H (2.5-4.5) mg/dL AST 269 H (14-36) U/L ALT 138 H (4-34) U/L Alkaline Phosphatase 195 H (38-126) U/L Total Protein 4.4 L (6.3-8.2) g/dL Albumin 1.7 L (3.5-5.0) g/dL Lipase <10 L (23-300) U/L Procalcitonin (0.02-0.09) ng/mL Urine Appearance Cloudy H (Clear) Urine Protein 1+ H (Negative) Urine Blood Trace H (Negative) Amorphous Sediment Rare H (None) /hpf Urine Mucus Rare H (None) /hpf 08/19/21 08/19/21 08/19/21 Range/Units 08:20 08:20 08:58 WBC 30.7 H (3.8-10.6) k/uL RBC (3.80-5.40) m/uL Hgb (11.4-16.0) gm/dL Hct (34.0-46.0) % MCV 105.6 H D (80.0-100.0) fL MCHC 29.2 L (31.0-37.0) g/dL Neutrophils # (Manual) 27.90 H (1.3-7.7) k/uL Lymphocytes # (Manual) 0.61 L (1.0-4.8) k/uL Monocytes # (Manual) 1.23 H (0-1.0) k/uL Metamyelocytes # (Man) 1.23 H (0) k/uL PT 14.6 H (9.0-12.0) sec INR 1.4 H (<1.2) APTT (22.0-30.0) sec ABG pH (7.35-7.45) ABG pCO2 (35-45) mmHg ABG pO2 (83-108) mmHg ABG Total CO2 (19-24) mmol/L Chloride (98-107) mmol/L BUN (7-17) mg/dL Glucose (74-99) mg/dL POC Glucose (mg/dL) 40 L (75-99) mg/dL Calcium (8.4-10.2) mg/dL Phosphorus (2.5-4.5) mg/dL AST (14-36) U/L ALT (4-34) U/L Alkaline Phosphatase (38-126) U/L Total Protein (6.3-8.2) g/dL Albumin (3.5-5.0) g/dL Lipase (23-300) U/L Procalcitonin (0.02-0.09) ng/mL Urine Appearance (Clear) Urine Protein (Negative) Urine Blood (Negative) Amorphous Sediment (None) /hpf Urine Mucus (None) /hpf 08/19/21 Range/Units 09:18 WBC (3.8-10.6) k/uL RBC (3.80-5.40) m/uL Hgb (11.4-16.0) gm/dL Hct (34.0-46.0) % MCV (80.0-100.0) fL MCHC (31.0-37.0) g/dL Neutrophils # (Manual) (1.3-7.7) k/uL Lymphocytes # (Manual) (1.0-4.8) k/uL Monocytes # (Manual) (0-1.0) k/uL Metamyelocytes # (Man) (0) k/uL PT (9.0-12.0) sec INR (<1.2) APTT (22.0-30.0) sec ABG pH (7.35-7.45) ABG pCO2 (35-45) mmHg ABG pO2 (83-108) mmHg ABG Total CO2 (19-24) mmol/L Chloride (98-107) mmol/L BUN (7-17) mg/dL Glucose (74-99) mg/dL POC Glucose (mg/dL) 114 H (75-99) mg/dL Calcium (8.4-10.2) mg/dL Phosphorus (2.5-4.5) mg/dL AST (14-36) U/L ALT (4-34) U/L Alkaline Phosphatase (38-126) U/L Total Protein (6.3-8.2) g/dL Albumin (3.5-5.0) g/dL Lipase (23-300) U/L Procalcitonin (0.02-0.09) ng/mL Urine Appearance (Clear) Urine Protein (Negative) Urine Blood (Negative) Amorphous Sediment (None) /hpf Urine Mucus (None) /hpf Microbiology - Last 24 Hours (Table) 08/18/21 13:00 Gram Stain - Preliminary Tissue - Other Wound Culture - Preliminary 08/18/21 19:00 Gram Stain - Preliminary Sputum Sputum Culture - Preliminary 08/18/21 18:56 Anaerobic Culture - Preliminary Anus 08/18/21 18:56 Wound Culture - Preliminary Rectum Diabetes panel 08/18/21 08/19/21 Range/Units 13:03 08:20 Sodium 137 145 (137-145) mmol/L Potassium 4.0 4.6 (3.5-5.1) mmol/L Chloride 105 115 H (98-107) mmol/L Carbon Dioxide 25 22 (22-30) mmol/L BUN 57 H 52 H (7-17) mg/dL Creatinine 0.84 0.87 (0.52-1.04) mg/dL Glucose 94 43 L* (74-99) mg/dL Calcium 8.3 L 7.5 L (8.4-10.2) mg/dL AST 160 H 269 H (14-36) U/L ALT 88 H 138 H (4-34) U/L Alkaline Phosphatase 204 H 195 H (38-126) U/L Total Protein 4.9 L 4.4 L (6.3-8.2) g/dL Albumin 1.9 L 1.7 L (3.5-5.0) g/dL Thyroid panel 08/19/21 Range/Units 08:20 TSH 0.683 (0.465-4.680) mIU/L Calcium panel 08/18/21 08/19/21 Range/Units 13:03 08:20 Calcium 8.3 L 7.5 L (8.4-10.2) mg/dL Phosphorus 6.8 H (2.5-4.5) mg/dL Albumin 1.9 L 1.7 L (3.5-5.0) g/dL Pituitary panel 08/18/21 08/19/21 08/19/21 Range/Units 13:03 08:20 08:20 Sodium 137 145 (137-145) mmol/L Potassium 4.0 4.6 (3.5-5.1) mmol/L Chloride 105 115 H (98-107) mmol/L Carbon Dioxide 25 22 (22-30) mmol/L BUN 57 H 52 H (7-17) mg/dL Creatinine 0.84 0.87 (0.52-1.04) mg/dL Glucose 94 43 L* (74-99) mg/dL Calcium 8.3 L 7.5 L (8.4-10.2) mg/dL TSH 0.683 (0.465-4.680) mIU/L Adrenal panel 08/18/21 08/19/21 Range/Units 13:03 08:20 Sodium 137 145 (137-145) mmol/L Potassium 4.0 4.6 (3.5-5.1) mmol/L Chloride 105 115 H (98-107) mmol/L Carbon Dioxide 25 22 (22-30) mmol/L BUN 57 H 52 H (7-17) mg/dL Creatinine 0.84 0.87 (0.52-1.04) mg/dL Glucose 94 43 L* (74-99) mg/dL Calcium 8.3 L 7.5 L (8.4-10.2) mg/dL Total Bilirubin 0.7 0.7 (0.2-1.3) mg/dL AST 160 H 269 H (14-36) U/L ALT 88 H 138 H (4-34) U/L Alkaline Phosphatase 204 H 195 H (38-126) U/L Total Protein 4.9 L 4.4 L (6.3-8.2) g/dL Albumin 1.9 L 1.7 L (3.5-5.0) g/dL
--- NOTE | 2021-08-19 15:52 | P.PN ---
Subjective Progress Note Date: 08/19/21 There is a 51-year-old here patient presented emergency department because of generalized weakness and hypotension. The patient apparently has not been feeling well for the past few days. She was unable to eat or drink and she was getting progressively more dehydrated. 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 Chris. The patient was treated with a combination of chemoradiation therapy. The patient had was also given a diverticular colostomy to prevent contamination of the perineal area as part of her ongoing cancer treatment. The patient subsequently progressed and currently she has a large area peritoneal ulcer which is a combination of a residual tumor involving the perineum and superinfection. Apparently the patient has been receiving wound care at home. She is a poor historian and her has noted that the wound itself has been becoming progressively more wet and purulent and foul-smelling. The wound is deep extending into the pelvis and possibly into the right thigh and the retroperitoneal area and the vaginal wall on the right. This area is quite painful to the point where the patient is unable to lay down the back and she is been essentially assuming the position of standing up on her knees. She apparently had fallen she currently has also a area of the tissue injury along the lateral wall of the thigh where there is an area of skin slough and necrotic center without acute drainage. The patient looks to be extremely cachectic, emaciated, body mass index of 20.8, malnourished, apprehensive, somewhat confused and short of breath. Family is at the bedside. No previous oncologic data is available in terms of her previous treatments. We'll contact oncologist's office to get more records regarding her previous history of anal cancer. Based on ongoing lethargy, weakness, shortness of breath, debility, the patient was brought into the emergency department by family members. What I'm still working NO problem one day today The patient at a time of her arrival, she was hypotensive and the blood pressure was as low at 64/33 and she was tachycardic and she was afebrile. Pulse ox was 81% on room air oxygen. Chest x-ray showed a new right upper lobe masslike consolidation in addition to areas of infiltration in the left mid and the left lower lung and this was consistent with multilobar pneumonia most on the right upper lobe. The patient's blood work showed a white cell count of 36.3 with a hemoglobin of 10 and a platelet count of 20 on 39. Correlation profile was normal. The serum bicarb was 25 with a BUN of 57 and a creatinine of 0.8, LFTs are abnormal with an AST of 160, ALT of 88, alkaline phosphatase of 204 and the patient is post cholecystectomy. COVID 19 testing was negative and the patient's influenza A and B screen were negative. A triple lumen catheter was established in the emergency department and the patient was given IV fluids. This was inserted in the right femoral vein by the emergency department physician. Following that, the patient was given IV fluids and she was started on combination of Zosyn and vancomycin. Patient is currently on 14 L oxygen high flow pulse ox ranging between 90-94%. Patient is also on norepinephrine infusion running at 0.2mcg/kg/m. This morning on 08/11/2021, the patient is being seen for a follow-up. The patient was seen in consultation yesterday. This is a critically ill female patient was septic and has signs of multisystem organ failure. This morning, the patient remains on propofol and the patient is on propofol at 30 mcg/kg per minute. The patient is also on IV fluids with normal saline at the rate of 1 30 mL an hour. The patient has been aggressively resuscitated with fluids and she received a total of 4 L bolus of normal saline. The patient is currently on norepinephrine infusion running at 0.43 mcg/kg per minute and the patient is also on vasopressin physiologic dose 0.03 units an hour. Urine output is order of 20 mL an hour. The patient remains on a mechanical ventilator at the rate of 30, tidal volume of 400, rate of 30, FiO2 on the percent with a PEEP of 6. The morning blood gases from today showed a pH of 7.15 with a pCO2 of 69 and pO2 of 108. Chest x-ray showed extensive multifocal multilobar pneumonia, ET tube is in good location. The pro-calcitonin level was at 2.39. Lactic acid level is at 1.8. The blood cultures of been negative thus far. The patient furthermore had Doppler of the lower extremity and the patient was found to have bilateral lower extremity DVTs. Mother the patient was taken Eliquis on outpatient basis. The white cell count today's of 30.7 with a hemoglobin of 12.1, platelet count of 251. The renal function is stable with a creatinine of 0.87 with a mean of 50 to and the sodium level of 145. The patient remains on examination Zosyn and vancomycin. Objective - Vital Signs Vital signs: Vital Signs Temp 101.3 F H 08/19/21 08:00 Pulse 140 H 08/19/21 11:15 Resp 30 H 08/19/21 11:15 BP 100/55 08/19/21 11:15 Pulse Ox 95 08/19/21 11:00 Intake & Output 08/18/21 08/19/21 08/19/21 18:59 06:59 18:59 Intake Total 4.300 1775.744 934.882 Output Total 500 185 Balance 4.300 1275.744 749.882 Weight 49.895 kg 58.4 kg 60.4 kg Intake: IV 700 Piperacillin-Tazobactam 3 100 .375 gm In Sodium Chloride 0.9% 100 ml @ 25 mls/hr IVPB Q8HR [facility] Rx# :[id number] Sodium Chloride 0.9% 1, 600 000 ml @ 150 mls/hr IV . Q6H40M [facility] Rx#:[id number] Intake, IV Titration 4.300 1775.744 234.882 Amount Norepinephrine 32 mg In 4.300 164.076 82.803 Sodium Chloride 0.9% 218 ml @ 0.05 MCG/KG/MIN 1. 169 mls/hr IV .Q24H [facility] Rx#:[id number] Sodium Chloride 0.9% 1, 1300 130 000 ml @ 150 mls/hr IV . Q6H40M [facility] Rx#:[id number] Vancomycin 1,000 mg In 250 Sodium Chloride 0.9% 250 ml @ 125 mls/hr IVPB Q12H [facility] Rx#:[id number] propofoL 1,000 mg In 61.668 22.079 Empty Bag 1 bag @ 5 MCG/ KG/MIN 1.497 mls/hr IV . Q24H [facility] Rx#:[id number] Output: Gastric Drainage 50 Urine 350 135 Stool 150 - Exam Anxious, lethargic, currently sedated, intubated on a mechanical ventilator. Orotracheal and orogastric tube are both in place. Head exam was generally normal. There was no scleral icterus or corneal arcus. Mucous membranes were moist. Neck was supple and without jugular venous distension, thyromegaly, or carotid bruits. Carotids were easily palpable bilaterally. There was no adenopathy. Lungs sounds are diminished in the patient's crackles throughout the lung. Bilaterally more so on the right Cardiac exam revealed the PMI to be normally situated and sized. The rhythm was regular and no extrasystoles were noted during several minutes of auscultation. The first and second heart sounds were normal and physiologic splitting of the second heart sound was noted. There were no murmurs, rubs, clicks, or gallops. Abdominal exam revealed normal bowel sounds. The abdomen was soft, non-tender, and without masses, organomegaly, or appreciable enlargement of the abdominal aorta. The patient had a diverticular colostomy in the left lower quadrant and a colostomy site is functional and viable at this point in time. Extremities reveal edema in lower eczematous bilaterally and the patient has diminished pulses no cyanosis or clubbing. There is a deep tissue injury over the lateral aspect of the thigh probably related to forward a areas quite necrotic centrally and there is some surrounding erythema in the areas measuring 10 CM IN SIZE. Pelvis :there is an open wound in the right inguinal area just at the inguinal crease between the pelvis and the right thigh and this is extending into the perineum where there is a open wound surrounded by pelvic bones and the extension of the open wound to the retroperitoneum is suspected. It may be also some tract formation due to underlying infection. The central area shows tissue which is necrotic and purulent and foul-smelling material is covering the pelvic wound and this is extending also into the gluteus muscle on the right. Neurologically, the patient is sedated and the patient is withdrawing only to deep painful stimulation. - Labs CBC & Chem 7: 08/19/21 08:20 08/19/21 08:20 Labs: Abnormal Lab Results - Last 24 Hours (Table) 08/18/21 08/18/21 08/18/21 Range/Units 12:59 13:03 19:46 WBC (3.8-10.6) k/uL MCV (80.0-100.0) fL MCHC (31.0-37.0) g/dL Neutrophils # (Manual) 34.80 H (1.3-7.7) k/uL Lymphocytes # (Manual) 0.73 L (1.0-4.8) k/uL Monocytes # (Manual) (0-1.0) k/uL Metamyelocytes # (Man) (0) k/uL PT (9.0-12.0) sec INR (<1.2) ABG pH 7.09 L* (7.35-7.45) ABG pCO2 78 H* (35-45) mmHg ABG pO2 110 H (83-108) mmHg ABG Total CO2 26 H (19-24) mmol/L Chloride (98-107) mmol/L BUN (7-17) mg/dL Glucose (74-99) mg/dL POC Glucose (mg/dL) (75-99) mg/dL Calcium (8.4-10.2) mg/dL Phosphorus (2.5-4.5) mg/dL AST (14-36) U/L ALT (4-34) U/L Alkaline Phosphatase (38-126) U/L Total Protein (6.3-8.2) g/dL Albumin (3.5-5.0) g/dL Lipase (23-300) U/L Procalcitonin 2.39 H (0.02-0.09) ng/mL Urine Appearance (Clear) Urine Protein (Negative) Urine Blood (Negative) Amorphous Sediment (None) /hpf Urine Mucus (None) /hpf 08/18/21 08/18/21 08/18/21 Range/Units 20:23 20:41 21:01 WBC (3.8-10.6) k/uL MCV (80.0-100.0) fL MCHC (31.0-37.0) g/dL Neutrophils # (Manual) (1.3-7.7) k/uL Lymphocytes # (Manual) (1.0-4.8) k/uL Monocytes # (Manual) (0-1.0) k/uL Metamyelocytes # (Man) (0) k/uL PT (9.0-12.0) sec INR (<1.2) ABG pH (7.35-7.45) ABG pCO2 (35-45) mmHg ABG pO2 (83-108) mmHg ABG Total CO2 (19-24) mmol/L Chloride (98-107) mmol/L BUN (7-17) mg/dL Glucose (74-99) mg/dL POC Glucose (mg/dL) 53 L 128 H 106 H (75-99) mg/dL Calcium (8.4-10.2) mg/dL Phosphorus (2.5-4.5) mg/dL AST (14-36) U/L ALT (4-34) U/L Alkaline Phosphatase (38-126) U/L Total Protein (6.3-8.2) g/dL Albumin (3.5-5.0) g/dL Lipase (23-300) U/L Procalcitonin (0.02-0.09) ng/mL Urine Appearance (Clear) Urine Protein (Negative) Urine Blood (Negative) Amorphous Sediment (None) /hpf Urine Mucus (None) /hpf 08/18/21 08/18/21 08/19/21 Range/Units 22:08 23:00 06:11 WBC (3.8-10.6) k/uL MCV (80.0-100.0) fL MCHC (31.0-37.0) g/dL Neutrophils # (Manual) (1.3-7.7) k/uL Lymphocytes # (Manual) (1.0-4.8) k/uL Monocytes # (Manual) (0-1.0) k/uL Metamyelocytes # (Man) (0) k/uL PT (9.0-12.0) sec INR (<1.2) ABG pH 7.15 L* (7.35-7.45) ABG pCO2 69 H (35-45) mmHg ABG pO2 (83-108) mmHg ABG Total CO2 26 H (19-24) mmol/L Chloride (98-107) mmol/L BUN (7-17) mg/dL Glucose (74-99) mg/dL POC Glucose (mg/dL) 115 H (75-99) mg/dL Calcium (8.4-10.2) mg/dL Phosphorus (2.5-4.5) mg/dL AST (14-36) U/L ALT (4-34) U/L Alkaline Phosphatase (38-126) U/L Total Protein (6.3-8.2) g/dL Albumin (3.5-5.0) g/dL Lipase (23-300) U/L Procalcitonin (0.02-0.09) ng/mL Urine Appearance Cloudy H (Clear) Urine Protein 1+ H (Negative) Urine Blood Trace H (Negative) Amorphous Sediment Rare H (None) /hpf Urine Mucus Rare H (None) /hpf 08/19/21 08/19/21 08/19/21 Range/Units 08:20 08:20 08:20 WBC 30.7 H (3.8-10.6) k/uL MCV 105.6 H D (80.0-100.0) fL MCHC 29.2 L (31.0-37.0) g/dL Neutrophils # (Manual) 27.90 H (1.3-7.7) k/uL Lymphocytes # (Manual) 0.61 L (1.0-4.8) k/uL Monocytes # (Manual) 1.23 H (0-1.0) k/uL Metamyelocytes # (Man) 1.23 H (0) k/uL PT 14.6 H (9.0-12.0) sec INR 1.4 H (<1.2) ABG pH (7.35-7.45) ABG pCO2 (35-45) mmHg ABG pO2 (83-108) mmHg ABG Total CO2 (19-24) mmol/L Chloride 115 H (98-107) mmol/L BUN 52 H (7-17) mg/dL Glucose 43 L* (74-99) mg/dL POC Glucose (mg/dL) (75-99) mg/dL Calcium 7.5 L (8.4-10.2) mg/dL Phosphorus 6.8 H (2.5-4.5) mg/dL AST 269 H (14-36) U/L ALT 138 H (4-34) U/L Alkaline Phosphatase 195 H (38-126) U/L Total Protein 4.4 L (6.3-8.2) g/dL Albumin 1.7 L (3.5-5.0) g/dL Lipase <10 L (23-300) U/L Procalcitonin (0.02-0.09) ng/mL Urine Appearance (Clear) Urine Protein (Negative) Urine Blood (Negative) Amorphous Sediment (None) /hpf Urine Mucus (None) /hpf 08/19/21 08/19/21 08/19/21 Range/Units 08:58 09:18 13:13 WBC (3.8-10.6) k/uL MCV (80.0-100.0) fL MCHC (31.0-37.0) g/dL Neutrophils # (Manual) (1.3-7.7) k/uL Lymphocytes # (Manual) (1.0-4.8) k/uL Monocytes # (Manual) (0-1.0) k/uL Metamyelocytes # (Man) (0) k/uL PT (9.0-12.0) sec INR (<1.2) ABG pH (7.35-7.45) ABG pCO2 (35-45) mmHg ABG pO2 (83-108) mmHg ABG Total CO2 (19-24) mmol/L Chloride (98-107) mmol/L BUN (7-17) mg/dL Glucose (74-99) mg/dL POC Glucose (mg/dL) 40 L 114 H 65 L (75-99) mg/dL Calcium (8.4-10.2) mg/dL Phosphorus (2.5-4.5) mg/dL AST (14-36) U/L ALT (4-34) U/L Alkaline Phosphatase (38-126) U/L Total Protein (6.3-8.2) g/dL Albumin (3.5-5.0) g/dL Lipase (23-300) U/L Procalcitonin (0.02-0.09) ng/mL Urine Appearance (Clear) Urine Protein (Negative) Urine Blood (Negative) Amorphous Sediment (None) /hpf Urine Mucus (None) /hpf Microbiology - Last 24 Hours (Table) 08/18/21 13:00 Gram Stain - Preliminary Tissue - Other Wound Culture - Preliminary 08/18/21 19:00 Gram Stain - Preliminary Sputum Sputum Culture - Preliminary 08/18/21 18:56 Anaerobic Culture - Preliminary Anus 08/18/21 18:56 Wound Culture - Preliminary Rectum Assessment and Plan Plan: 1 septic shock, currently on IV fluids and pressors and the patient was started on examination antibiotic with Zosyn and vancomycin, the patient was resuscitated aggressively with IV fluids and the patient is currently on a combination of pressors including norepinephrine infusion and vasopressin physiologic dose. 2 multilobar pneumonia and a chest x-ray from today showing a stable right upper lobe masslike pulmonary consolidation and there is interval worsening of the lef t mid and left lower lobe pulmonary consolidation. 3 acute hypoxic respiratory failure currently intubated on a mechanical ventilator 4 peritoneal open wound/infected, started off as her anal area extending into the perineum, vaginal wall and possibly the right thigh. This patient has clearly a anogenital open wound with possibility some tract formation. This has been a chronic problem related to her previous squamous cell carcinoma of the anus and the patient undergone previous biopsies and tumor resection confirming diagnosis. This is a large open area creating a large cavity and is surrounded by pelvic bone structures and there are clear signs of pelvic abscess/wound infection and possibly some perineal wound sinus tract. 5 squamous cell carcinoma of the anal canal with previous renal with chemoradiation therapy, the patient was receiving immunotherapy on outpatient basis 6 acute leukocytosis secondary to above 7 altered mentation secondary to above 8 cachexia malnourishment with a body mass index of 20.8 9 history of congestion heart failure 10 COPD 11 bilateral lower extremity DVT 12 abnormal LFTs secondary to above, could be related to sepsis versus immunotherapy related. Plan This is a patient with IV fluids and the patient will be given normal saline at the rate of 150 mL an hour Cover the patient with broad-spectrum antibiotics including Zosyn and vancomycin Monitor the blood sugar when the watch for any signs of hypoglycemia, Cultures of been obtained and there is also still pending for now Continue pressors and the patient is on a combination of norepinephrine infusion and vasopressin physiologic dose Awaiting the results of the echocardiogram Check a baseline serum cortisol level Check thyroid function tests Continue ventilator support and necessary ventilator changes were done today. The tidal volume was increased to 450 Start the patient IV heparin regarding lower extremity DVTs Awaiting consultation from various other specialties Very poor prognosis CODE STATUS and then changed to DO NOT RESUSCITATE Time with Patient: Greater than 30
[2021-08-19] MEDS: ACETAMINOPHEN TAB 325 MG TAB PO PRN ×2 (16:24→20:16)
[2021-08-19 16:37] LABS: Glucose,Whole Blood 120 mg/dL (75-99)
[2021-08-19 19:59] LABS: Glucose,Whole Blood 82 mg/dL (75-99)
--- NOTE | 2021-08-19 21:33 | P.PN ---
Subjective Progress Note Date: 08/19/21 Principal diagnosis: Sepsis Patient is a 51-year-old female with a past medical history significant for HPV related squamous carcinoma of the anus, presented to the hospital with generalized weakness and hypotension in this patient who did have significant distraction to the pelvic area. Patient did went respiratory distress evening of 08/18/2021 and got intubated. On today's evaluation that is 08/19/2021 the patient is febrile spiking a fever of 103F, patient is requiring pressor support to maintain her blood pressure, no significant purulent secretion through the ET and no output in her colostomy bag Objective - Vital Signs Vital signs: Vital Signs Temp 101.3 F H 08/19/21 08:00 Pulse 140 H 08/19/21 11:15 Resp 30 H 08/19/21 11:15 BP 100/55 08/19/21 11:15 Pulse Ox 95 08/19/21 11:00 Intake & Output 08/18/21 08/19/21 08/19/21 18:59 06:59 18:59 Intake Total 4.300 1775.744 934.882 Output Total 500 185 Balance 4.300 1275.744 749.882 Weight 49.895 kg 58.4 kg 60.4 kg Intake: IV 700 Piperacillin-Tazobactam 3 100 .375 gm In Sodium Chloride 0.9% 100 ml @ 25 mls/hr IVPB Q8HR [facility] Rx# :[id number] Sodium Chloride 0.9% 1, 600 000 ml @ 150 mls/hr IV . Q6H40M [facility] Rx#:[id number] Intake, IV Titration 4.300 1775.744 234.882 Amount Norepinephrine 32 mg In 4.300 164.076 82.803 Sodium Chloride 0.9% 218 ml @ 0.05 MCG/KG/MIN 1. 169 mls/hr IV .Q24H [facility] Rx#:[id number] Sodium Chloride 0.9% 1, 1300 130 000 ml @ 150 mls/hr IV . Q6H40M [facility] Rx#:[id number] Vancomycin 1,000 mg In 250 Sodium Chloride 0.9% 250 ml @ 125 mls/hr IVPB Q12H [facility] Rx#:[id number] propofoL 1,000 mg In 61.668 22.079 Empty Bag 1 bag @ 5 MCG/ KG/MIN 1.497 mls/hr IV . Q24H [facility] Rx#:[id number] Output: Gastric Drainage 50 Urine 350 135 Stool 150 - Exam GENERAL DESCRIPTION: Middle-aged female intubated on the vent RESPIRATORY SYSTEM: Unlabored breathing , decreased breath sounds at bases HEART: S1 S2 regular rate and rhythm , ABDOMEN: Soft , no tenderness EXTREMITIES: No edema feet - Labs CBC & Chem 7: 08/19/21 08:20 08/19/21 08:20 Labs: Abnormal Lab Results - Last 24 Hours (Table) 08/18/21 08/18/21 08/18/21 Range/Units 12:59 13:03 19:46 WBC (3.8-10.6) k/uL MCV (80.0-100.0) fL MCHC (31.0-37.0) g/dL Neutrophils # (Manual) 34.80 H (1.3-7.7) k/uL Lymphocytes # (Manual) 0.73 L (1.0-4.8) k/uL Monocytes # (Manual) (0-1.0) k/uL Metamyelocytes # (Man) (0) k/uL PT (9.0-12.0) sec INR (<1.2) ABG pH 7.09 L* (7.35-7.45) ABG pCO2 78 H* (35-45) mmHg ABG pO2 110 H (83-108) mmHg ABG Total CO2 26 H (19-24) mmol/L Chloride (98-107) mmol/L BUN (7-17) mg/dL Glucose (74-99) mg/dL POC Glucose (mg/dL) (75-99) mg/dL Calcium (8.4-10.2) mg/dL Phosphorus (2.5-4.5) mg/dL AST (14-36) U/L ALT (4-34) U/L Alkaline Phosphatase (38-126) U/L Total Protein (6.3-8.2) g/dL Albumin (3.5-5.0) g/dL Lipase (23-300) U/L Procalcitonin 2.39 H (0.02-0.09) ng/mL Urine Appearance (Clear) Urine Protein (Negative) Urine Blood (Negative) Amorphous Sediment (None) /hpf Urine Mucus (None) /hpf 08/18/21 08/18/21 08/18/21 Range/Units 20:23 20:41 21:01 WBC (3.8-10.6) k/uL MCV (80.0-100.0) fL MCHC (31.0-37.0) g/dL Neutrophils # (Manual) (1.3-7.7) k/uL Lymphocytes # (Manual) (1.0-4.8) k/uL Monocytes # (Manual) (0-1.0) k/uL Metamyelocytes # (Man) (0) k/uL PT (9.0-12.0) sec INR (<1.2) ABG pH (7.35-7.45) ABG pCO2 (35-45) mmHg ABG pO2 (83-108) mmHg ABG Total CO2 (19-24) mmol/L Chloride (98-107) mmol/L BUN (7-17) mg/dL Glucose (74-99) mg/dL POC Glucose (mg/dL) 53 L 128 H 106 H (75-99) mg/dL Calcium (8.4-10.2) mg/dL Phosphorus (2.5-4.5) mg/dL AST (14-36) U/L ALT (4-34) U/L Alkaline Phosphatase (38-126) U/L Total Protein (6.3-8.2) g/dL Albumin (3.5-5.0) g/dL Lipase (23-300) U/L Procalcitonin (0.02-0.09) ng/mL Urine Appearance (Clear) Urine Protein (Negative) Urine Blood (Negative) Amorphous Sediment (None) /hpf Urine Mucus (None) /hpf 08/18/21 08/18/21 08/19/21 Range/Units 22:08 23:00 06:11 WBC (3.8-10.6) k/uL MCV (80.0-100.0) fL MCHC (31.0-37.0) g/dL Neutrophils # (Manual) (1.3-7.7) k/uL Lymphocytes # (Manual) (1.0-4.8) k/uL Monocytes # (Manual) (0-1.0) k/uL Metamyelocytes # (Man) (0) k/uL PT (9.0-12.0) sec INR (<1.2) ABG pH 7.15 L* (7.35-7.45) ABG pCO2 69 H (35-45) mmHg ABG pO2 (83-108) mmHg ABG Total CO2 26 H (19-24) mmol/L Chloride (98-107) mmol/L BUN (7-17) mg/dL Glucose (74-99) mg/dL POC Glucose (mg/dL) 115 H (75-99) mg/dL Calcium (8.4-10.2) mg/dL Phosphorus (2.5-4.5) mg/dL AST (14-36) U/L ALT (4-34) U/L Alkaline Phosphatase (38-126) U/L Total Protein (6.3-8.2) g/dL Albumin (3.5-5.0) g/dL Lipase (23-300) U/L Procalcitonin (0.02-0.09) ng/mL Urine Appearance Cloudy H (Clear) Urine Protein 1+ H (Negative) Urine Blood Trace H (Negative) Amorphous Sediment Rare H (None) /hpf Urine Mucus Rare H (None) /hpf 08/19/21 08/19/21 08/19/21 Range/Units 08:20 08:20 08:20 WBC 30.7 H (3.8-10.6) k/uL MCV 105.6 H D (80.0-100.0) fL MCHC 29.2 L (31.0-37.0) g/dL Neutrophils # (Manual) 27.90 H (1.3-7.7) k/uL Lymphocytes # (Manual) 0.61 L (1.0-4.8) k/uL Monocytes # (Manual) 1.23 H (0-1.0) k/uL Metamyelocytes # (Man) 1.23 H (0) k/uL PT 14.6 H (9.0-12.0) sec INR 1.4 H (<1.2) ABG pH (7.35-7.45) ABG pCO2 (35-45) mmHg ABG pO2 (83-108) mmHg ABG Total CO2 (19-24) mmol/L Chloride 115 H (98-107) mmol/L BUN 52 H (7-17) mg/dL Glucose 43 L* (74-99) mg/dL POC Glucose (mg/dL) (75-99) mg/dL Calcium 7.5 L (8.4-10.2) mg/dL Phosphorus 6.8 H (2.5-4.5) mg/dL AST 269 H (14-36) U/L ALT 138 H (4-34) U/L Alkaline Phosphatase 195 H (38-126) U/L Total Protein 4.4 L (6.3-8.2) g/dL Albumin 1.7 L (3.5-5.0) g/dL Lipase <10 L (23-300) U/L Procalcitonin (0.02-0.09) ng/mL Urine Appearance (Clear) Urine Protein (Negative) Urine Blood (Negative) Amorphous Sediment (None) /hpf Urine Mucus (None) /hpf 08/19/21 08/19/21 08/19/21 Range/Units 08:58 09:18 13:13 WBC (3.8-10.6) k/uL MCV (80.0-100.0) fL MCHC (31.0-37.0) g/dL Neutrophils # (Manual) (1.3-7.7) k/uL Lymphocytes # (Manual) (1.0-4.8) k/uL Monocytes # (Manual) (0-1.0) k/uL Metamyelocytes # (Man) (0) k/uL PT (9.0-12.0) sec INR (<1.2) ABG pH (7.35-7.45) ABG pCO2 (35-45) mmHg ABG pO2 (83-108) mmHg ABG Total CO2 (19-24) mmol/L Chloride (98-107) mmol/L BUN (7-17) mg/dL Glucose (74-99) mg/dL POC Glucose (mg/dL) 40 L 114 H 65 L (75-99) mg/dL Calcium (8.4-10.2) mg/dL Phosphorus (2.5-4.5) mg/dL AST (14-36) U/L ALT (4-34) U/L Alkaline Phosphatase (38-126) U/L Total Protein (6.3-8.2) g/dL Albumin (3.5-5.0) g/dL Lipase (23-300) U/L Procalcitonin (0.02-0.09) ng/mL Urine Appearance (Clear) Urine Protein (Negative) Urine Blood (Negative) Amorphous Sediment (None) /hpf Urine Mucus (None) /hpf Microbiology - Last 24 Hours (Table) 08/18/21 13:00 Gram Stain - Preliminary Tissue - Other Wound Culture - Preliminary 08/18/21 19:00 Gram Stain - Preliminary Sputum Sputum Culture - Preliminary 08/18/21 18:56 Anaerobic Culture - Preliminary Anus 08/18/21 18:56 Wound Culture - Preliminary Rectum Assessment and Plan (1) Septic shock Status: Acute Code(s): A41.9 - SEPSIS, UNSPECIFIED ORGANISM; R65.21 - SEVERE SEPSIS WITH SEPTIC SHOCK SNOMED Code(s): 54583647 Plan: 1-patient is in the hospital with sepsis/septic shock in this patient who did have a history of squamous cell carcinoma of the anus in this patient did have significant destructive lesion to the pelvic area, possibly abdominal to be the source of this abscess and will need to cover for the gram-positive as well as gram-negative as well as a component of pneumonia, patient cultures are currently pending patient is currently is covered with broad-spectrum Zosyn and vancomycin to monitor clinical course and kidney function closely, in view of pe rsistent fever will add Diflucan Time with Patient: Less than 30
[2021-08-19] MEDS ORDERED: ANIDULAFUNGIN 200 MG in SODIUM CHLORIDE 0.9% 200 ML IVPB ONE (22:00)
[2021-08-19 23:04] VITALS: TEMP 101.8
[2021-08-19] MEDS ORDERED: ATROPINE OPHTH SOLN 1% 5ML BTL SUBLINGUAL PRN (23:33)
[2021-08-19] MEDS ORDERED: MORPHINE SULFATE 4 MG/ML SYRINGE IVP ONE (23:33)
[2021-08-19] MEDS ORDERED: MORPHINE SULFATE 2 MG/ML SYRINGE IV PRN (23:35)
[2021-08-19] MEDS ORDERED: SCOPOLAMINE 1 MG/72 HR PATCH TRANSDERM SCH (23:45)
[2021-08-20] MEDS ORDERED: MORPHINE SULFATE (100 MG/2 ML) 100 MG in SODIUM CHLORIDE 0.9% 100 ML IV SCH ×2
[2021-08-20 03:08] VITALS: BP 114/33; PULSE 64; RESP 3
[2021-08-20] MEDS ORDERED: VANCOMYCIN 1,000 MG in SODIUM CHLORIDE 0.9% 250 ML IVPB SCH (05:00)
[2021-08-20] MEDS ORDERED: ANIDULAFUNGIN 100 MG in SODIUM CHLORIDE 0.9% 100 ML IVPB SCH (09:00)
[2021-08-20] MEDS ORDERED: VANCOMYCIN TROUGH DUE 1 EACH MISC MISCELLANE ONE (16:00)
--- NOTE | 2021-08-24 13:28 | CDI ---
Documentation Clarification Form Date: 08/24/21 From: Tara Curiel Admit Date: 08/18/2021 12:59:00 PM Patient Name: Maru Murillo Visit Number: [id number] Discharge Date: 08/20/2021 03:09:00 AM ATTENTION: The Clinical Documentation Specialists (CDI) and [facility] Coding Staff appreciate your assistance in clarifying documentation. Please respond to the clarification below the line at the bottom and electronically sign. The CDI & [facility] Coding staff will review the response and follow-up if needed. Please note: Queries are made part of the Legal Health Record. If you have any questions, please contact the author of this message via ITS. Dr. Reji Blackmon, Malnutrition is documented in your consult on 08/18 and subsequent progress notes. Additional clarification regarding the severity of malnutrition is requested. History/Risk Factors: sepsis w septic shock, acute hypoxia respiratory failure, pneumonia, COPD w LRTI, acute thrombosis of femoral vein bilateral, open wounds Clinical Indicators: Cachexia, malnourishment with a body mass index of 20.8. Current BMI: 20.8 Insufficient energy intake: inadequate energy intake RD Consult Assessment: Nutrition intake poor, Intubated and sedated. Treatment: Will initiate EN per Shira Teran NP order, Vital 1.2 @ 40 ml/hr. Start at 10 ml/hr and increase by 10ml/hr every 8 hours as tolerated. Free water flush 30 ml every 4 hours. Lab monitoring: Please clarify the type of malnutrition, if known: [ ] Mild Protein-Calorie Malnutrition [ ] Moderate Protein-Calorie Malnutrition [ x ] Severe Protein-Calorie Malnutrition [ ] Malnutrition, unspecified [ ] Other condition, please specify [ ] Unable to Determine MTDD
--- NOTE | 2021-08-27 23:37 | P.CONS ---
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 Chris and this patient has been previously treated with a combination of chemoradiation and also have a diverting colostomy patient has been brought into the ER for evaluation of generalized weakness and hypotension in this patient symptom has been going on for a few days before presentation to the hospital, the patient has been noticed to have more purulent and foul-smelling drainage from her pelvic wound area and the patient be complaining of more pain to her pelvic area on presentation to the hospital the patient was afebrile patient did have significant hypotension requiring fluid and pressor support patient did have white count of 36,000 with a left shift creatinine has been normal liver exams mildly elevated urine was negative siddiqui and influenza PCR's were negative patient did have a chest x-ray new right upper lobe masslike pneumonic consolidation the patient be started on broad-spectrum antibiotic in the form of vancomycin and Zosyn CT chest abdominal pelvis has been ordered infectious disease was consulted for further management of antibiotic therapy Review of Systems Positive point has been mentioned in the HPI rest of the systems are negative Past Medical History Past Medical History: Cancer, Heart Failure, COPD Additional Past Medical History / Comment(s): "Bad headaches", constipation, sqamous cell skin cancer rectal area -receiving chemo. History of Any Multi-Drug Resistant Organisms: None Reported Past Surgical History: Cholecystectomy, Tonsillectomy, Uterine Ablation Additional Past Surgical History / Comment(s): Hemorrhoidectomy. Anal Biopsy. Past Anesthesia/Blood Transfusion Reactions: No Reported Reaction, Motion Sickness Past Psychological History: Anxiety Smoking Status: Current every day smoker Past Alcohol Use History: Rare Past Drug Use History: Marijuana - Past Family History Father Family Medical History: Cancer Additional Family Medical History / Comment(s): Lung cancer. Medications and Allergies Home Medications Medication Instructions Recorded Confirmed Type Albuterol Inhaler [Ventolin Hfa 2 puff INHALATION RT-QID PRN 07/02/20 08/18/21 History Inhaler] Albuterol Nebulized [Ventolin 2.5 mg INHALATION RT-QID PRN 10/28/20 08/18/21 History Nebulized] Apixaban [Eliquis] 5 mg PO Q12H 08/18/21 08/18/21 History Docusate [Colace] 100 mg PO BID 08/18/21 08/18/21 History Gabapentin [Neurontin] 300 mg PO TID 08/18/21 08/18/21 History Morphine Sulfate ER [Ms Contin] 15 mg PO Q8H 08/18/21 08/18/21 History Morphine Sulfate ER [Ms Contin] 30 mg PO Q8H 08/18/21 08/18/21 History Morphine Sulfate [Morphine Sulfate 2 - 4 mg PO Q3H PRN 08/18/21 08/18/21 History 10 MG/5 ML] Allergies Allergy/AdvReac Type Severity Reaction Status Date / Time codeine AdvReac Nausea & Verified 08/18/21 13:34 [From Tylenol-Codeine #3] Vomiting Physical Exam Vitals: Vital Signs Temp Pulse Resp BP Pulse Ox 08/18/21 13:30 97.4 F L 107 H 18 81/44 90 L 08/18/21 13:20 96 18 99/39 95 08/18/21 13:10 101 H 22 57/25 95 08/18/21 13:05 104 H 19 74/36 90 L 08/18/21 12:53 104 H 20 69/40 87 L 08/18/21 12:35 100 20 64/33 88 L 08/18/21 12:19 97.9 F 104 H 20 72/36 81 L Intake and Output 08/17/21 08/18/21 08/18/21 22:59 06:59 14:59 Intake Total 4.300 Balance 4.300 Intake: Intake, IV Titration 4.300 Amount Norepinephrine 32 mg In 4.300 Sodium Chloride 0.9% 218 ml @ 0.05 MCG/KG/MIN 1. 169 mls/hr IV .Q24H [facility] Rx#:[id number] Other: Weight 49.895 kg GENERAL DESCRIPTION: Middle-aged debilitated female lying in bed, no distress. No tachypnea or accessory muscle of respiration use. HEENT: Shows Pallor , no scleral icterus. Oral mucous membrane is dry. No pharyngeal erythema or thrush NECK: Trachea central, no thyromegaly. LUNGS: Unlabored breathing. Clear to auscultation anteriorly. No wheeze or crackle. HEART: S1, S2, regular rate and rhythm. No loud murmur ABDOMEN: Soft, no tenderness , patient did have extensive wound to the perianal area with significant amount of slough tissue and destruction EXTREMITIES: No edema of feet. SKIN: No rash, no masses palpable. Deep tissue injury to the left thigh area NEUROLOGICAL: The patient is awake, alert, oriented x3, mood and affect normal. Results CBC & Chem 7: 08/19/21 08:20 08/19/21 08:20 Labs: Abnormal Lab Results - Last 24 Hours (Table) 08/18/21 08/18/21 08/18/21 Range/Units 13:03 13:03 13:03 WBC 36.3 H (3.8-10.6) k/uL RBC 3.31 L (3.80-5.40) m/uL Hgb 10.1 L (11.4-16.0) gm/dL Hct 31.8 L (34.0-46.0) % PT 12.6 H (9.0-12.0) sec INR 1.2 H (<1.2) APTT 30.4 H (22.0-30.0) sec BUN 57 H (7-17) mg/dL Calcium 8.3 L (8.4-10.2) mg/dL AST 160 H (14-36) U/L ALT 88 H (4-34) U/L Alkaline Phosphatase 204 H (38-126) U/L Total Protein 4.9 L (6.3-8.2) g/dL Albumin 1.9 L (3.5-5.0) g/dL Assessment and Plan (1) Septic shock Status: Acute Code(s): A41.9 - SEPSIS, UNSPECIFIED ORGANISM; R65.21 - SEVERE SEPSIS WITH SEPTIC SHOCK SNOMED Code(s): 42214084 Plan: 1patient presented to hospital with sepsis in this patient did have a hypotension significantly weighted white count source is likely genitourinary and this patient did have a extensive wound to the pelvic area with a history of squamous cell carcinoma of the anus with a foul-smelling drainage and will need to cover for the gram-positive as well as with the gram-negative. 2we will wait for the CT of the abdomen pelvis to be completed. 3-patient to continue with current broad-spectrum antibiotics in the form of vancomycin and Zosyn however will monitor her kidney function closely with this combination. We will follow on clinical condition and cultures to further adjust medication if needed Thank you for this consultation will follow this patient along with you Time with Patient: Greater than 30
--- NOTE | 2021-09-14 08:21 | P.HPIM ---
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 Pt intubated and sedated in the ICU, history via chart review. Patient has a history of diverting colostomy to prevent contamination to the perineal area for her ongoing cancer. Patient had not been eating and drinking well at home. She's found to be septic. Also had evidence of pneumonia and open large peritoneal wound. She is requiring Levophed and vasopressin. She is on IV heparin for bilateral DVT. Nursing staff reported drainage from the wound. She also has a positive blood culture from [facility] with gram-negative rods. She's been febrile with a temp of 101.3, tachycardic, hypotensive and has leukocytosis. Review of Systems ROS unobtainable: due to endotracheal tube Past Medical History Past Medical History: Cancer, Heart Failure, COPD Additional Past Medical History / Comment(s): "Bad headaches", constipation, sqamous cell skin cancer rectal area -receiving chemo. History of Any Multi-Drug Resistant Organisms: None Reported Past Surgical History: Cholecystectomy, Tonsillectomy, Uterine Ablation Additional Past Surgical History / Comment(s): Hemorrhoidectomy. Anal Biopsy. Past Anesthesia/Blood Transfusion Reactions: No Reported Reaction, Motion Sickness Past Psychological History: Anxiety Additional Psychological History / Comment(s): Claustrophobic. Smoking Status: Current every day smoker Past Alcohol Use History: Rare Additional Past Alcohol Use History / Comment(s): Smokes 1-2 PPD, has smoked since age 18. Past Drug Use History: Marijuana - Past Family History Father Family Medical History: Cancer Additional Family Medical History / Comment(s): Lung cancer. Medications and Allergies Home Medications Medication Instructions Recorded Confirmed Type Albuterol Inhaler [Ventolin Hfa 2 puff INHALATION RT-QID PRN 07/02/20 08/18/21 History Inhaler] Albuterol Nebulized [Ventolin 2.5 mg INHALATION RT-QID PRN 10/28/20 08/18/21 History Nebulized] Apixaban [Eliquis] 5 mg PO Q12H 08/18/21 08/18/21 History Docusate [Colace] 100 mg PO BID 08/18/21 08/18/21 History Gabapentin [Neurontin] 300 mg PO TID 08/18/21 08/18/21 History Morphine Sulfate ER [Ms Contin] 15 mg PO Q8H 08/18/21 08/18/21 History Morphine Sulfate ER [Ms Contin] 30 mg PO Q8H 08/18/21 08/18/21 History Morphine Sulfate [Morphine Sulfate 2 - 4 mg PO Q3H PRN 08/18/21 08/18/21 History 10 MG/5 ML] Allergies Allergy/AdvReac Type Severity Reaction Status Date / Time codeine AdvReac Nausea & Verified 08/18/21 13:34 [From Tylenol-Codeine #3] Vomiting Physical Exam Vitals: Vital Signs Temp Pulse Resp BP Pulse Ox 08/20/21 03:00 08/20/21 02:45 11408/20/21 02:30 11408/20/21 02:15 11408/20/21 02:00 08/20/21 01:45 11408/20/21 01:30 11408/20/21 01:15 11408/20/21 01:00 11408/20/21 00:45 11408/20/21 00:30 11408/20/21 00:15 64 3 L 08/20/21 00:00 117 H 54 H 11408/19/21 23:45 128 H 32 H 107/27 08/19/21 23:30 129 H 31 H 110/39 08/19/21 23:15 129 H 24 118/39 08/19/21 23:03 130 H 40 H 118/39 08/19/21 23:00 101.8 F H 130 H 31 H 111/27 08/19/21 22:45 131 H 28 H 102/40 08/19/21 22:30 131 H 31 H 108/35 08/19/21 22:15 131 H 30 H 97/49 08/19/21 22:00 133 H 31 H 100/36 08/19/21 21:45 134 H 30 H 115/31 08/19/21 21:30 134 H 29 H 113/34 08/19/21 21:15 135 H 29 H 106/37 08/19/21 21:00 137 H 31 H 98/37 08/19/21 20:45 137 H 32 H 108/46 08/19/21 20:30 138 H 33 H 101/40 08/19/21 20:15 140 H 24 104/44 08/19/21 20:00 102.9 F H 140 H 26 H 115/45 08/19/21 19:45 140 H 26 H 105/49 08/19/21 19:30 141 H 35 H 122/35 08/19/21 19:15 141 H 25 H 116/37 08/19/21 19:00 141 H 31 H 116/37 08/19/21 18:45 142 H 31 H 124/50 08/19/21 18:30 142 H 32 H 124/50 08/19/21 18:15 142 H 25 H 119/48 08/19/21 18:00 144 H 26 H 125/42 08/19/21 17:45 144 H 32 H 111/57 08/19/21 17:30 142 H 13 110/43 08/19/21 17:15 141 H 0 L 114/47 08/19/21 17:00 126/37 08/19/21 16:45 141 H 2 L 122/46 94 L 08/19/21 16:30 141 H 0 L 127/52 94 L 08/19/21 16:15 141 H 0 L 125/43 08/19/21 16:00 102.1 F H 140 H 30 H 119/46 94 L 08/19/21 15:45 138 H 6 L 113/53 94 L 08/19/21 15:30 138 H 5 L 107/55 93 L 08/19/21 15:19 140 H 08/19/21 15:15 138 H 0 L 126/42 95 08/19/21 15:09 136 H 30 H 08/19/21 15:00 137 H 0 L 139/37 95 08/19/21 14:45 137 H 5 L 133/43 96 08/19/21 14:30 135 H 0 L 132/42 96 08/19/21 14:15 137 H 0 L 133/44 08/19/21 14:00 135 H 4 L 08/19/21 13:45 135 H 5 L 126/44 08/19/21 13:30 135 H 5 L 118/47 97 08/19/21 13:15 138 H 6 L 112/55 95 08/19/21 13:00 140 H 6 L 113/45 95 08/19/21 12:45 138 H 8 L 106/53 08/19/21 12:30 138 H 8 L 108/56 08/19/21 12:15 138 H 7 L 114/41 08/19/21 12:00 138 H 13 111/42 94 L 08/19/21 11:45 138 H 12 114/46 08/19/21 11:30 138 H 15 110/57 96 08/19/21 11:15 140 H 30 H 100/55 08/19/21 11:00 140 H 16 111/60 95 08/19/21 10:56 141 H 30 H 08/19/21 10:47 140 H 31 H 08/19/21 10:45 140 H 17 106/50 94 L 08/19/21 10:30 141 H 17 102/51 93 L 08/19/21 10:15 141 H 25 H 102/53 93 L 08/19/21 10:00 144 H 13 101/64 94 L 08/19/21 09:45 144 H 26 H 99/50 92 L 08/19/21 09:30 146 H 14 113/57 93 L 08/19/21 09:15 144 H 16 117/57 08/19/21 09:00 147 H 34 H 115/61 91 L 08/19/21 08:45 149 H 32 H 120/54 91 L Intake and Output 08/19/21 08/20/21 08/20/21 22:59 06:59 14:59 Intake Total 1313.676 75 Output Total 110 0 Balance 1203.676 75 Intake: IV 1025 75 Dextrose 10% in Water 1, 525 75 000 ml @ 75 mls/hr IV . [id number] [facility] with Sodium Chloride 2.5MEQ/ml Vial 153.8 meq Rx#:[id number] Piperacillin-Tazobactam 3 100 .375 gm In Sodium Chloride 0.9% 100 ml @ 25 mls/hr IVPB Q8HR [facility] Rx# :[id number] Sodium Chloride 0.9% 1, 150 000 ml @ 150 mls/hr IV . Q6H40M [facility] Rx#:[id number] Vancomycin 1,000 mg In 250 Sodium Chloride 0.9% 250 ml @ 125 mls/hr IVPB Q12H [facility] Rx#:[id number] Intake, IV Titration 218.676 Amount Norepinephrine 32 mg In 84.782 Sodium Chloride 0.9% 218 ml @ 0.05 MCG/KG/MIN 1. 169 mls/hr IV .Q24H [facility] Rx#:[id number] propofoL 1,000 mg In 133.894 Empty Bag 1 bag @ 5 MCG/ KG/MIN 1.497 mls/hr IV . Q24H [facility] Rx#:[id number] Tube Feeding 70 Output: Urine 110 0 Gen: intubated, sedated, ill appearing HEENT: normocephalic, mucus membranes moist Neck: supple, no thyromegaly CV: Tachycardic, no murmur Lungs: No rales or wheezing Skin: large decubitus ulcer with gauze overlying Neuro: sedated Results CBC & Chem 7: 08/19/21 08:20 08/19/21 08:20 Labs: Abnormal Lab Results - Last 24 Hours (Table) 08/19/21 08/19/21 08/19/21 Range/Units 08:20 08:20 08:20 WBC 30.7 H (3.8-10.6) k/uL MCV 105.6 H D (80.0-100.0) fL MCHC 29.2 L (31.0-37.0) g/dL Neutrophils # (Manual) 27.90 H (1.3-7.7) k/uL Lymphocytes # (Manual) 0.61 L (1.0-4.8) k/uL Monocytes # (Manual) 1.23 H (0-1.0) k/uL Metamyelocytes # (Man) 1.23 H (0) k/uL PT 14.6 H (9.0-12.0) sec INR 1.4 H (<1.2) APTT (22.0-30.0) sec Chloride 115 H (98-107) mmol/L BUN 52 H (7-17) mg/dL Glucose 43 L* (74-99) mg/dL POC Glucose (mg/dL) (75-99) mg/dL Calcium 7.5 L (8.4-10.2) mg/dL Phosphorus 6.8 H (2.5-4.5) mg/dL AST 269 H (14-36) U/L ALT 138 H (4-34) U/L Alkaline Phosphatase 195 H (38-126) U/L Total Protein 4.4 L (6.3-8.2) g/dL Albumin 1.7 L (3.5-5.0) g/dL Lipase <10 L (23-300) U/L 08/19/21 08/19/21 08/19/21 Range/Units 08:58 09:18 13:13 WBC (3.8-10.6) k/uL MCV (80.0-100.0) fL MCHC (31.0-37.0) g/dL Neutrophils # (Manual) (1.3-7.7) k/uL Lymphocytes # (Manual) (1.0-4.8) k/uL Monocytes # (Manual) (0-1.0) k/uL Metamyelocytes # (Man) (0) k/uL PT (9.0-12.0) sec INR (<1.2) APTT (22.0-30.0) sec Chloride (98-107) mmol/L BUN (7-17) mg/dL Glucose (74-99) mg/dL POC Glucose (mg/dL) 40 L 114 H 65 L (75-99) mg/dL Calcium (8.4-10.2) mg/dL Phosphorus (2.5-4.5) mg/dL AST (14-36) U/L ALT (4-34) U/L Alkaline Phosphatase (38-126) U/L Total Protein (6.3-8.2) g/dL Albumin (3.5-5.0) g/dL Lipase (23-300) U/L 08/19/21 08/19/21 Range/Units 15:02 16:36 WBC (3.8-10.6) k/uL MCV (80.0-100.0) fL MCHC (31.0-37.0) g/dL Neutrophils # (Manual) (1.3-7.7) k/uL Lymphocytes # (Manual) (1.0-4.8) k/uL Monocytes # (Manual) (0-1.0) k/uL Metamyelocytes # (Man) (0) k/uL PT (9.0-12.0) sec INR (<1.2) APTT 63.6 H (22.0-30.0) sec Chloride (98-107) mmol/L BUN (7-17) mg/dL Glucose (74-99) mg/dL POC Glucose (mg/dL) 120 H (75-99) mg/dL Calcium (8.4-10.2) mg/dL Phosphorus (2.5-4.5) mg/dL AST (14-36) U/L ALT (4-34) U/L Alkaline Phosphatase (38-126) U/L Total Protein (6.3-8.2) g/dL Albumin (3.5-5.0) g/dL Lipase (23-300) U/L Microbiology - Last 24 Hours (Table) 08/19/21 15:02 Blood Culture - Final Blood 08/18/21 18:56 Gram Stain - Preliminary Rectum Wound Culture - Preliminary 08/18/21 13:00 Gram Stain - Preliminary Tissue - Other Wound Culture - Preliminary 08/18/21 19:00 Gram Stain - Preliminary Sputum Sputum Culture - Preliminary Thrombosis Risk Factor Assmnt - Choose All That Apply Any of the Below Risk Factors Present?: Yes Each Factor Represents 1 point: Age 41-60 years, Sepsis (< 1month), Swollen legs (current) Thrombosis Risk Factor Assessment Total Risk Factor Score: 3 Thrombosis Risk Factor Assessment Level: Moderate Risk Assessment and Plan Plan: Admit to ICU; Cardiology, Pulmonology, ID to see. IV fluids and vasopressors per critical care. 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 surgery for debridement and surgical evaluation of this perineal/pelvic abscess/wound Titrate oxygen. Limited saturation above 90%, currently on 14 L to maintain this in this patient to high flow oxygen, Airvo 2-D echocardiogram in a.m.
--- NOTE | 2021-09-14 08:23 | P.DS ---
Providers Date of admission: 08/18/21 12:59 Expected date of discharge: 08/20/21 Attending physician: Arturo Rea MD Consults: 08/18/21 12:57 Consult Physician Stat Consulting Provider: Reji Blackmon Consult Reason/Comments: critical care Do you want consulting provider notified?: Yes Consult Physician Urgent Consulting Provider: Waqas Chris Consult Reason/Comments: Oncological care Do you want consulting provider notified?: Yes 08/18/21 13:01 Consult Physician Urgent Consulting Provider: Cristobal Mayfield Consult Reason/Comments: sepsis, wound Do you want consulting provider notified?: Yes 08/19/21 08:17 Consult Physician Urgent Consulting Provider: Bernardino Borden Consult Reason/Comments: Perineal wounds, abscess Do you want consulting provider notified?: Yes [facility] Course: Maru Murillo is a 51-year-old female with a known history of 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 Pt intubated and sedated in the ICU, history via chart review. Patient has a history of diverting colostomy to prevent contamination to the perineal area for her ongoing cancer. Patient had not been eating and drinking well at home. She's found to be septic. Also had evidence of pneumonia and open large peritoneal wound. She is requiring Levophed and vasopressin. She is on IV heparin for bilateral DVT. Nursing staff reported drainage from the wound. She also has a positive blood culture from [facility] with gram-negative rods. She's been febrile with a temp of 101.3, tachycardic, hypotensive and has leukocytosis. Pt admitted to the ICU, placed on vasopressors and covered with broad spectrum antibiotics. She was seen by ID, Pulmonology, Cardiology, General surgery. Despite aggressive measures pt continued to decline and became hemoynamically unstable. Family notified and pt made comfort measures. She subsequently on 08/20. Patient Condition at Discharge: Critical Plan - Discharge Summary New Discharge Prescriptions: No Action Albuterol Inhaler [Ventolin Hfa Inhaler] 2 puff INHALATION RT-QID PRN PRN Reason: Shortness Of Breath Morphine Sulfate [Morphine Sulfate 10 MG/5 ML] 2 - 4 mg PO Q3H PRN PRN Reason: Pain Docusate [Colace] 100 mg PO BID Morphine Sulfate ER [Ms Contin] 30 mg PO Q8H Morphine Sulfate ER [Ms Contin] 15 mg PO Q8H Apixaban [Eliquis] 5 mg PO Q12H Albuterol Nebulized [Ventolin Nebulized] 2.5 mg INHALATION RT-QID PRN PRN Reason: COPD Gabapentin [Neurontin] 300 mg PO TID Discharge Medication List Albuterol Inhaler [Ventolin Hfa Inhaler] 2 puff INHALATION RT-QID PRN 07/02/20 [History] Albuterol Nebulized [Ventolin Nebulized] 2.5 mg INHALATION RT-QID PRN 10/28/20 [History] Apixaban [Eliquis] 5 mg PO Q12H 08/18/21 [History] Docusate [Colace] 100 mg PO BID 08/18/21 [History] Gabapentin [Neurontin] 300 mg PO TID 08/18/21 [History] Morphine Sulfate ER [Ms Contin] 15 mg PO Q8H 08/18/21 [History] Morphine Sulfate ER [Ms Contin] 30 mg PO Q8H 08/18/21 [History] Morphine Sulfate [Morphine Sulfate 10 MG/5 ML] 2 - 4 mg PO Q3H PRN 08/18/21 [History] Follow up Appointment(s)/Referral(s): Chuyita Simmons MD [Primary Care Provider] - 1-2 days Discharge Disposition: - Preliminary Cause of Preliminary Cause of : cancer
== END 2021-08-20 03:09 | disposition expired | DRG 871 ==
LOC: EC 12:16 → 2SICU 12:59
PROVIDERS: ADMIT Family Medicine; ATTEND Family Medicine
DX: A41.9 Sepsis, unspecified organism (principal); R65.21 Severe sepsis with septic shock; J96.01 Acute respiratory failure with hypoxia; J18.9 Pneumonia, unspecified organism; J44.0 Chronic obstructive pulmonary disease with (acute) lower respiratory infection; I82.413 Acute embolism and thrombosis of femoral vein, bilateral; R64 Cachexia; S36.81XA Injury of peritoneum, initial encounter; K62.6 Ulcer of anus and rectum; K56.7 Ileus, unspecified; I50.9 Heart failure, unspecified; Z43.3 Encounter for attention to colostomy; Z66 Do not resuscitate; Z51.5 Encounter for palliative care; Z20.822 Contact with and (suspected) exposure to COVID-19; S71.101A Unspecified open wound, right thigh, initial encounter; C44.590 Other specified malignant neoplasm of anal skin; Z68.20 Body mass index [BMI] 20.0-20.9, adult; S31.40XA Unspecified open wound of vagina and vulva, initial encounter; E86.0 Dehydration; S31.809A Unspecified open wound of unspecified buttock, initial encounter; N73.1 Chronic parametritis and pelvic cellulitis; R59.9 Enlarged lymph nodes, unspecified; F41.9 Anxiety disorder, unspecified; R74.8 Abnormal levels of other serum enzymes; K59.00 Constipation, unspecified; F17.210 Nicotine dependence, cigarettes, uncomplicated; Z79.01 Long term (current) use of anticoagulants; Z79.891 Long term (current) use of opiate analgesic; Z79.51 Long term (current) use of inhaled steroids; Z79.899 Other long term (current) drug therapy; Z90.49 Acquired absence of other specified parts of digestive tract; Z90.89 Acquired absence of other organs; Z87.19 Personal history of other diseases of the digestive system; Z92.3 Personal history of irradiation; Z92.21 Personal history of antineoplastic chemotherapy; Z87.42 Personal history of other diseases of the female genital tract; Z86.69 Personal history of other diseases of the nervous system and sense organs; Z98.890 Other specified postprocedural states; Z88.5 Allergy status to narcotic agent; Z71.3 Dietary counseling and surveillance; Z80.1 Family history of malignant neoplasm of trachea, bronchus and lung
CPT/HCPCS: 36556; 36600; 71045; 71250; 74176; 80053; 80202; 81001; 82533; 82805; 83605; 83690; 83735; 84100; 84145; 84443; 85025; 85610; 85730; 87040; 87070; 87075; 87077; 87186; 87205; 87502; 87635; 93005; 93308; 93970; 94002; 94640; 96365; 96366; 96367; 96375; 99291